=== PATIENT | male | born 1985 | race Caucasian/White ===

== ENCOUNTER 2018-07-15 14:10 | Emergency (ER) | payer BC, SELFPAY ==
[2018-07-15 14:11] VITALS: BP 121/83; PULSE 77; RESP 16; TEMP 36.4; O2SAT 100; BMI 24.6
--- NOTE | 2018-07-15 15:25 | RAD_ITS ---
STUDY: X-RAY - RIGHT HAND REASON FOR EXAM: Male, 32 years old. Erythema and swelling of the third digit. TECHNIQUE: 3 view(s) of the hand. COMPARISON: None. FINDINGS: Normal radiocarpal articulation. Normal distal radioulnar joint. Normal visualized carpal bones. Normal carpal articulations Normal carpometacarpal articulation of the thumb. Normal second through fifth carpometacarpal joints. Normal metacarpi. Normal metacarpophalangeal joint of the thumb. Normal interphalangeal joint of the thumb. Normal proximal and distal phalanges of the thumb. Normal metacarpophalangeal joints of the second through fifth fingers. Normal proximal and distal interphalangeal joints of the second through fifth fingers. Normal phalanges of the second through fifth fingers. Soft tissue swelling overlying the third digit. No radiopaque foreign body is seen. No bony abnormality is seen. RAD/Hand Min 3 Views IMPRESSION: Soft tissue swelling of the third digit. Electronically Signed: Senthil Yip MD at 15:34 EDT Tel [phone], Service support ,
--- NOTE | 2018-07-15 15:39 | ED.DCSUM_ITS ---
- ER Visit Summary Date of Service: 07/15/18 Chief Complaint: Right hand cellulitis History of Present Illness: The patient is a 32 M states that on Thursday he had a small blister on the dorsum of his right long finger PIP joint. He states he popped it but nothing came out. He states that within 30 minutes the dorsum of his hand was red and he had red streaks going up his arm. He states that the redness of the finger changed to bruising and then changed back to redness is now back to bruising. Denies any fevers. On Thursday evening he took some leftover amoxicillin and was taking that until last night when he ran out. He went to urgent care and was sent here. He is a type II diabetic. Physical Examination: Afebrile vital signs are stable Gen: Well-nourished well-developed Head: Normocephalic atraumatic Eyes: Perrl EOMI ENT: TMs clear no rhinorrhea moist mucous membranes Neck: Supple no lymphadenopathy no JVD nontender CVS: Regular rate rhythm no murmurs normal S1-S2 Respiratory: No distress clear to auscultation bilaterally chest nontender Abdomen: Soft nontender nondistended normal bowel sounds no masses Back: Nontender Extremity: The right hand demonstrates some mild erythema on the dorsum involving the index long and ring finger MCP joint's skin. The long finger is swollen and erythematous. There is no erythema over the volar aspect. He is able to fully extend and to flex. Her vascular intact distally. At the PIP joint is a crusted over wound. I am not appreciating any fluctuance or visualizing any drainage. There is no lymphangitis Skin: Normal color no rash Neuro: alert orientated ?3 CN II-XII intact normal strength sensation reflexes gait cerebellar Psych: Normal affect normal mood Test Results: White blood cell count 13. Elevated blood sugar noted. Blood cultures obtained. X-ray revealed some swelling but no obvious foreign body Emergency Department Course and Treatment: Patient received a dose of vancomycin while we waited on blood work. This is been going on for 4 days does not appear to involve the tendon and by the history the patient provides is improving on Amoxil. This would at least suggest this could be MSSA infection. He will be placed on Keflex and Bactrim. As today is evening and follow-up in 48 hours would be impossible on Thursday evening informed the patient he should return to the emergency room for repeat examination. I am working that evening and can see him. The erythema was outlined and blue pen. Patient understands this plan is comfortable with them. He was placed in a volar plaster splint I will take him off work. Impression: 1. Right long finger and hand cellulitis 2. Diabetes mellitus type 2 3. Splint by physician This note was generated with [employer] dictation software. It may contain incorrect words, spelling, and punctuation that were not noted in review of the chart prior to signing ED Disposition - Plan for ED Patient: Disposition: Home or Assisted Living Chief Complaint: Cellulitis Instructions: ED Infec Skin Cellulitis Prescriptions: Cephalexin [Keflex] 500 mg PO Q6 #40 cap Smz/Tmp Ds [Bactrim Ds] 1 tab PO BID #20 tab Additional Instructions: You will need repeat examination of 48 hours. You may return to the emergency department here at [facility] on Thursday evening to get this repeat exam. Elevate the hand Monitor for worsening infection and return immediately if concerns
[2018-07-15 15:46] LABS: Absolute Lymphocyte Count 2.81 X10^3/ul (0.83-4.51); Absolute Neutrophil Count 8.5 X10^3/uL (2.0-7.7); Basophil# 0.06 X10^3/uL; Basophil% 0.5 % (0-1); Eosinophil# 0.12 X10^3/uL; Eosinophils% 0.9 % (0-5); Hematocrit 44.3 % (40-54); Hemoglobin 15.8 g/dl (13.0-16.5); Lymphocyte # 2.81 X10^3/ul (4.0); Lymphocyte % 21.7 % (19-41); Mean Corp Hgb Conc 35.7 g/gl (32-36); Mean Corpuscular Hgb 29.3 pg (27.0-32.0); Mean Corpuscular Volume 82.2 fL (80-94); Mean Platelet Vol. 10.7 fl (6.2-12.0); Monocyte# 1.45 X10^3/uL; Monocyte% 11.2 % (0-10); Neutrophil # 8.49 X10^3/uL (2.7-7.7); Neutrophil % 65.5 % (47-70); POSITIVE COUNT NO; POSITIVE DIFFERENTIAL NO; POSITIVE MORPHOLOGY NO; Platelet Count 283 K/mm3 (150-450); RBC Distribution Width CV 12.6 % (11.6-14.6); RBC Distribution Width SD 37.3 fl (35.1-43.9); Red Blood Count 5.39 M/mm3 (4.6-6.2)
[2018-07-15 15:58] LABS: Anion Gap 8 (5-15); BUN 20 mg/dL (7-18); BUN/Creat Ratio 22.2 RATIO (10-20); Calcium,Total 9.5 mg/dL (8.5-10.1); Chloride 95 mmol/L (98-107); EST Glomerular Filtration Rate 104 mL/min (>60); Est Glom Filt Rate - Afr Amer 126 mL/min (>60); Glucose 306 mg/dL (74-106); Potassium 4.8 mmol/L (3.5-5.1); Sodium Level 128 mmol/L (136-145)
[2018-07-15 17:15] VITALS: BP 115/69; PULSE 82; RESP 16; O2SAT 98
== END 2018-07-15 17:16 | disposition home or self-care (01) ==
PROVIDERS: Emergency Provider Emergency Medicine; Family Provider Internal Medicine; PCP Internal Medicine
DX: L03.011 Cellulitis of right finger (principal); L03.113 Cellulitis of right upper limb; E11.65 Type 2 diabetes mellitus with hyperglycemia; Z79.84 Long term (current) use of oral hypoglycemic drugs
CPT/HCPCS: 29125; 36415; 73130; 80048; 85025; 87040; 96365; 99283; A4216

== ENCOUNTER 2018-07-17 17:09 | Emergency (ER) | payer BC, SELFPAY ==
[2018-07-17 17:10] VITALS: BP 119/87; PULSE 99; RESP 16; TEMP 36.8; O2SAT 100; BMI 24.6
--- NOTE | 2018-07-17 18:41 | ED.VISSUMM ---
- ER Visit Summary Date of Service: 07/17/18 Chief Complaint: Hand cellulitis History of Present Illness: The patient is a 32 M who has a history of diabetes and was seen by this physician on July 15. He was placed on Bactrim and Keflex as well as a volar splint. Because it was the weekend he was asked to come to the emergency department for repeat examination. Patient denies any fevers. He states he does not have any pain. Physical Examination: Afebrile vital signs stable Gen: Well-nourished well-developed Head: Normocephalic atraumatic Eyes: Perrl EOMI ENT: TMs clear no rhinorrhea moist mucous membranes Neck: Supple no lymphadenopathy no JVD nontender CVS: Regular rate rhythm no murmurs normal S1-S2 Respiratory: No distress clear to auscultation bilaterally chest nontender Abdomen: Soft nontender nondistended normal bowel sounds no masses Back: Nontender Extremity: Overall the infection is significantly improved. The redness that was on the hand has retreated to distal to the MCP joint. The erythema of the finger has decreased to only on the dorsum. There is some deflated bullae-like skin on the dorsum without expression of pus. Patient states that he did get pus out of it yesterday. He is neurovascularly intact distally. Skin: Normal color no rash Neuro: alert orientated ?3 CN II-XII intact normal strength sensation reflexes gait cerebellar Psych: Normal affect normal mood Test Results: Not indicated Emergency Department Course and Treatment: Overall in 48 hours the patient has dramatically improved. I have him follow-up with his primary care doctor and continue his antibiotics. Return if he cannot see them. He will be placed in AlumaFoam splint. Impression: 1. Right index finger cellulitis This note was generated with [employer] dictation software. It may contain incorrect words, spelling, and punctuation that were not noted in review of the chart prior to signing ED Disposition - Plan for ED Patient: Disposition: Home or Assisted Living Chief Complaint: Cellulitis Instructions: Discharge Instructions for Cellulitis Referrals: Leanne Antonio MD [Primary Care Provider] - (in 3 days for wound check) Additional Instructions: Continue taking your antibiotics Wear splint. Please have a repeat examination on Thursday or Thursday. If you cannot secure a follow-up appointment please return to this emergency room.
[2018-07-17 19:04] VITALS: BP 119/79; PULSE 83; RESP 16; O2SAT 98
== END 2018-07-17 19:23 | disposition home or self-care (01) ==
LOC: ED 18:47
PROVIDERS: Emergency Provider Emergency Medicine; Family Provider Internal Medicine; PCP Internal Medicine
DX: L03.011 Cellulitis of right finger (principal); E11.9 Type 2 diabetes mellitus without complications; Z79.84 Long term (current) use of oral hypoglycemic drugs; Z79.899 Other long term (current) drug therapy
CPT/HCPCS: 99283

== ENCOUNTER 2019-03-07 21:58 | Emergency (ER) | payer BC, SELFPAY ==
[2019-03-07 21:58] VITALS: BP 120/93; PULSE 123; RESP 14; TEMP 37.1; O2SAT 100; BMI 23.1
--- NOTE | 2019-03-07 22:56 | EKG12_ITS ---
Test Reason : ABSESS Blood Pressure : / mmHG Vent. Rate : 100 BPM Atrial Rate : 100 BPM P-R Int : 138 ms QRS Dur : 096 ms QT Int : 334 ms P-R-T Axes : 064 052 058 degrees QTc Int : 430 ms Normal sinus rhythm Normal ECG Confirmed by AIDA CHRISTINA, ZHENG ([id number]), technical editor HAYDEN SPEARS ([id number]) on 03/09/2019 1:34:06 PM Referred By: MAMIE Confirmed By:ZHENG PARRA MD
--- NOTE | 2019-03-07 22:57 | ED.VISSUMM ---
- ER Visit Summary Date of Service: 03/07/19 Chief Complaint: Ingrown hair History of Present Illness: The patient is a 33 M who presents for evaluation of a ingrown hair on his left forearm. Patient states it is been worsening for 3 days. It started as a small pimple and is gradually gotten larger and more red. He squeezed some white pus from it. He has associated symptoms of feeling sweaty and hot today. He denies measured fever, chest pain, shortness of breath, abdominal pain, nausea vomiting or other complaints. Patient denies any history of IV drug use. He states 1 year ago he had a similar ingrown hair on 1 of his right fingers and had a severe infection, almost requiring amputation of the finger. Physical Examination: Vital signs: Afebrile, tachycardic, normotensive, no hypoxia on room air General: well nourished, well developed, nontoxic appearing Skin: warm, diaphoretic, no pallor HEENT: normocephalic and atraumatic; PERRL, EOMI, moist mucous membranes Cardiovascular: Tachycardic rate and rhythm without murmurs, no peripheral edema, 2+ pulses all distal extremities Respiratory: No increased work of breathing, lungs are clear to auscultation bilaterally, no rales, rhonchi or wheezing Abdominal: Abdomen is soft, nontender with normoactive bowel sounds, no guarding or rebound, no masses MSK: Moves all extremities, no deformities, normal strength, proximal forearm just distal to the olecranon process shows an erythematous nodule that expresses purulent discharge with gentle pressure, indurated and fluctuant, large area of surrounding erythema Neuro: Awake and alert, oriented ?4. No facial droop, sensation and motor function intact and symmetric Test Results: Abnormal Lab Results 03/07/19 03/07/19 03/07/19 23:10 23:10 23:10 WBC 12.6 H RBC 5.65 Hgb 16.3 Hct 44.9 MCV 79.5 L MCH 28.8 MCHC 36.3 H RDW 12.4 RDW Differential 35.8 Plt Count 344 MPV 10.4 Immature Gran % (Auto) 0.200 Neut % (Auto) 61.8 Lymph % (Auto) 26.8 Snyder % (Auto) 9.5 Eos % (Auto) 1.1 Baso % (Auto) 0.6 Absolute Neuts (auto) 7.8 H Absolute Lymphs (auto) 3.37 Total Counted Not Reportable PT 11.8 INR 0.9 APTT 25.4 Sodium 132 L Potassium 3.4 L Chloride 94 L Carbon Dioxide 31.0 Anion Gap 7 BUN 11 Creatinine 0.86 Estim Creat Clear Calc 138.84 Est GFR (MDRD) Af Amer 132 Est GFR (MDRD) Non-Af 109 BUN/Creatinine Ratio 12.7 Glucose 352 H Lactic Acid Calcium 9.2 Total Bilirubin 0.40 AST 14 L ALT 30 Alkaline Phosphatase 129 H Total Protein 8.1 Albumin 3.7 Globulin 4.4 H Albumin/Globulin Ratio 0.8 L POC Glucose 03/07/19 03/07/19 23:10 23:35 WBC RBC Hgb Hct MCV MCH MCHC RDW RDW Differential Plt Count MPV Immature Gran % (Auto) Neut % (Auto) Lymph % (Auto) Snyder % (Auto) Eos % (Auto) Baso % (Auto) Absolute Neuts (auto) Absolute Lymphs (auto) Total Counted PT INR APTT Sodium Potassium Chloride Carbon Dioxide Anion Gap BUN Creatinine Estim Creat Clear Calc Est GFR (MDRD) Af Amer Est GFR (MDRD) Non-Af BUN/Creatinine Ratio Glucose Lactic Acid 1.6 Calcium Total Bilirubin AST ALT Alkaline Phosphatase Total Protein Albumin Globulin Albumin/Globulin Ratio POC Glucose 373 H Clinical Impression(s) from Imaging Studies Chest X-Ray 03/07/19 23:55 IMPRESSION: No acute cardiopulmonary disease. at 0028 Reported and signed by: Wenceslao Noland MD Electronically Signed: Wenceslao Noland, at 0:27 EDT Tel , Service support , Elbow X-Ray 03/07/19 23:55 IMPRESSION: 1. No osteomyelitis, radiopaque foreign body, or bony abnormality. 2. Localized soft tissue swelling of the proximal left forearm, posteriorly, and this correlates with the provided history of soft tissue infection. at 0026 Reported and signed by: Wenceslao Noland MD Electronically Signed: Wenceslao Noland, at 0:25 EDT Tel , Service support , Medications Given Sodium Chloride () 1,000 mls @ 999 mls/hr IV .Q1H1M [facility] Last Admin: 03/07/19 23:27 Dose: 999 mls/hr Emergency Department Course and Treatment: Patient presents for evaluation of a left proximal forearm cellulitis. He was noted to be diaphoretic and tachycardic on initial evaluation, concerning for possible sepsis or glycemic emergency. Patient denied any substance use or withdrawal that would explain his tachycardia and diaphoresis. He stated that that was normal for him to react like that. After being moved into a room and after a short period of time, the diaphoresis resolved and his heart rate decreased without any intervention. Patient had a leukocytosis of 12.6. Blood glucose was 373. Patient had no anion gap or low bicarb that would be concerning for DKA. Lactate was normal at 1.6. Culture was taken of a small amount of pus expressed from patient's wound. Chest x-ray showed no concerning findings. Left elbow x-ray showed soft tissue swelling and no signs of deep space gas or osteomyelitis. The area of fluctuance was cleansed and then a stab incision was made with a scalpel, with no expression of any further pus. Patient was started on Keflex and Bactrim for treatment of cellulitis. We discussed his poorly controlled blood sugar, and patient states that he knows his blood sugar is high and that he does not like needles so does not use insulin. Patient was strongly encouraged to follow-up with his doctor and get his blood sugar better managed since he is young and it is unhealthy for him to have a persistently high blood sugar. At this time there is no sign of a glycemic emergency that would require further treatment. Patient did receive IV fluids for hydration while in the emergency department. He is well-appearing and does wish to go home on oral antibiotics. He was prescribed Keflex and Bactrim and was given strict return precautions in case of failed outpatient treatment. Patient agreed and was discharged home. Treatment Plan: [] Disposition: [] Impression: Left forearm cellulitis, hyperglycemia This note was generated with [employer] software. It may contain incorrect words, spelling, and punctuation that were not noted in review of the chart prior to signing ED Disposition - Plan for ED Patient: Instructions: ED Infec Skin Cellulitis, ED Hyperglycemia Diabetic Prescriptions: Cephalexin [Keflex] 500 mg PO Q6 #40 cap Smz/Tmp Ds [Bactrim Ds] 1 tab PO BID #20 tab Referrals: Leanne Antonio MD [Primary Care Provider] - 1-2 Days if not improving Additional Instructions: Take both antibiotics as prescribed for the full 10 days, even if your skin infection is better before the 10 days is complete. Use [id number] pain medication as needed for pain. Please follow-up with your doctor as soon as possible for a discussion of better control of your blood sugar. If you are not noticing improvement of your skin infection after 2 days of antibiotics, or if at any time you have any worsening of your condition, return immediately to the emergency department for another evaluation.
[2019-03-07 23:24] VITALS: PULSE 97; RESP 12; TEMP 36.8; O2SAT 100
[2019-03-07 23:26] VITALS: TEMP 36.8
[2019-03-07 23:27] VITALS: BP 124/73; PULSE 99; RESP 19; TEMP 36.8; O2SAT 100
[2019-03-07] MEDS: 0.9% Normal Saline 1,000 ML 999 ML IV (23:27)
[2019-03-07 23:28] LABS: International Normalized Ratio 0.9; Prothrombin Time (Protime)PT. 11.8 SECONDS (11.7-14.9)
[2019-03-07 23:29] LABS: Partial Thromboplast Time 25.4 Seconds (24.1-36.2)
[2019-03-07 23:31] LABS: Absolute Lymphocyte Count 3.37 X10^3/ul (0.83-4.51); Absolute Neutrophil Count 7.8 X10^3/uL (2.0-7.7); Basophil# 0.07 X10^3/uL; Basophil% 0.6 % (0-1); Eosinophil# 0.14 X10^3/uL; Eosinophils% 1.1 % (0-5); Hematocrit 44.9 % (40-54); Hemoglobin 16.3 g/dl (13.0-16.5); Lymphocyte # 3.37 X10^3/ul (4.0); Lymphocyte % 26.8 % (19-41); Mean Corp Hgb Conc 36.3 g/gl (32-36); Mean Corpuscular Hgb 28.8 pg (27.0-32.0); Mean Corpuscular Volume 79.5 fL (80-94); Mean Platelet Vol. 10.4 fl (6.2-12.0); Monocyte% 9.5 % (0-10); Neutrophil # 7.77 X10^3/uL (2.7-7.7); Neutrophil % 61.8 % (47-70); POSITIVE COUNT NO; POSITIVE DIFFERENTIAL NO; POSITIVE MORPHOLOGY NO; Platelet Count 344 K/mm3 (150-450); RBC Distribution Width CV 12.4 % (11.6-14.6); RBC Distribution Width SD 35.8 fl (35.1-43.9); Red Blood Count 5.65 M/mm3 (4.6-6.2); White Blood Count 12.6 K/mm3 (4.4-11.0)
[2019-03-07 23:37] LABS: ALB/GLOB Ratio 0.8 RATIO (0.9-2.4); AST(SGOT) 14 U/L (15-37); Alanine Aminotransfer ALT/SGPT 30 U/L (16-61); Albumin, Serum 3.7 g/dL (3.2-5.0); Alkaline Phosphatase 129 U/L (45-117); Anion Gap 7 (5-15); BUN 11 mg/dL (7-18); BUN/Creat Ratio 12.7 RATIO (10-20); Calcium,Total 9.2 mg/dL (8.5-10.1); Chloride 94 mmol/L (98-107); Creatinine, Serum 0.86 mg/dL (0.70-1.30); EST Glomerular Filtration Rate 109 mL/min (>60); Est Glom Filt Rate - Afr Amer 132 mL/min (>60); Estimated Creatinine Clearance 138.84 ml/min; Globulin 4.4 g/dL (2.2-4.2); Glucose 352 mg/dL (74-106); Potassium 3.4 mmol/L (3.5-5.1); Protein, Total 8.1 g/dL (6.4-8.2); Sodium Level 132 mmol/L (136-145)
[2019-03-07 23:45] LABS: Bedside Glucose 373 mg/dL (70-110)
[2019-03-07 23:45] LABS: Lactic Acid 1.6 mmol/L (0.4-2.0)
--- NOTE | 2019-03-07 23:55 | RAD_ITS ---
HISTORY: abscess on posterior left elbow x 4 days COMPARISON: None FINDINGS: XR left elbow 3 views No fracture, dislocation, or bony abnormality. Joint spaces are preserved. No osteomyelitis. The distal humeral fat pads are not displaced. As seen on the lateral view, localized mild soft tissue swelling of the proximal forearm, posteriorly. No radiopaque foreign body. No typical findings of olecranon bursitis. RAD/Elbow min 3 Views IMPRESSION: 1. No osteomyelitis, radiopaque foreign body, or bony abnormality. 2. Localized soft tissue swelling of the proximal left forearm, posteriorly, and this correlates with the provided history of soft tissue infection. at 0026 Reported and signed by: Wenceslao Noland MD Electronically Signed: Wenceslao Noland, at 0:25 EDT Tel , Service support ,
--- NOTE | 2019-03-07 23:55 | RAD_ITS ---
HISTORY: abscess on left elbow, fever EXAM:XR Chest 2 Views COMPARISON: None FINDINGS: EKG leads in place. Normal heart and mediastinum. Prominent lung volumes. No vascular congestion, pleural effusion, or acute pulmonary infiltration. No pneumothorax. The bony thorax appears intact. RAD/Chest PA and Lateral IMPRESSION: No acute cardiopulmonary disease. at 0028 Reported and signed by: Wenceslao Noland MD Electronically Signed: Wenceslao Noland, at 0:27 EDT Tel , Service support ,
[2019-03-08 00:13] VITALS: BP 126/99; PULSE 100; PULSE 89; RESP 20; TEMP 36.4; O2SAT 100
[2019-03-08] MEDS: Smz/Tmp Ds Tablet 1 TABLET PO (01:07)
[2019-03-08] MEDS: Cephalexin 250 MG Capsule 500 MG PO (01:08)
[2019-03-08 01:09] VITALS: BP 123/97; PULSE 95; RESP 18; O2SAT 100
== END 2019-03-08 01:11 | disposition home or self-care (01) ==
LOC: ED 23:00
PROVIDERS: Emergency Provider Emergency Medicine; Family Provider Internal Medicine; PCP Internal Medicine
DX: L03.114 Cellulitis of left upper limb (principal); R73.9 Hyperglycemia, unspecified; Z79.84 Long term (current) use of oral hypoglycemic drugs; Z79.899 Other long term (current) drug therapy
CPT/HCPCS: 71046; 73080; 80053; 82962; 83605; 85025; 85610; 85730; 87040; 87070; 87077; 87186; 87205; 93005; 96360; 96361; 99285; J7030

== ENCOUNTER 2019-05-24 00:04 | Observation (INO) | payer BC, SELFPAY ==
[2019-05-24] VITALS (8 sets, daily range): BP systolic 98–135; BP diastolic 54–89; PULSE 86–106; RESP 12–18; TEMP 36.6–37.2; O2SAT 96–100; BMI 24.4; BMI 24.5; BMI 24.6
[2019-05-24 01:12] LABS: Absolute Neutrophil Count 5.7 X10^3/uL (2.0-7.7); Basophil% 0.9 % (0-1); Eosinophil# 0.18 X10^3/uL; Eosinophils% 1.7 % (0-5); Hematocrit 37.1 % (40-54); Hemoglobin 13.3 g/dL (13.0-16.5); Lymphocyte % 35.5 % (19-41); Mean Corp Hgb Conc 35.8 g/dL (32-36); Mean Corpuscular Hgb 29.1 pg (27.0-32.0); Mean Corpuscular Volume 81.2 fL (80-94); Mean Platelet Vol. 10.6 fl (6.2-12.0); Monocyte# 0.89 X10^3/uL; Monocyte% 8.3 % (0-10); NRBC Flagged by Analyzer 0 % (0-5); Neutrophil # 5.65 X10^3/uL (2.7-7.7); Neutrophil % 52.9 % (47-70); Platelet Count 351 K/mm3 (150-450); RBC Distribution Width SD 34.7 fl (35.1-43.9); Red Blood Count 4.57 M/mm3 (4.6-6.2); White Blood Count 10.7 K/mm3 (4.4-11.0)
[2019-05-24 01:37] LABS: Anion Gap 10 (5-15); BUN 9 mg/dL (7-18); BUN/Creat Ratio 8.6 RATIO (10-20); Calcium,Total 8.7 mg/dL (8.5-10.1); Chloride 96 mmol/L (98-107); Creatinine, Serum 1.05 mg/dL (0.70-1.30); EST Glomerular Filtration Rate 87 mL/min (>60); Est Glom Filt Rate - Afr Amer 105 mL/min (>60); Estimated Creatinine Clearance 114.14 ml/min; Glucose 486 mg/dL (74-106); Sodium Level 133 mmol/L (136-145)
--- NOTE | 2019-05-24 01:37 | ED.RN ---
DR. SHARP INFORMED OF GLUCOSE 486. WILL CONTINUE TO MONITOR NO FURTHER ORDERS AT THIS TIME.
--- NOTE | 2019-05-24 01:55 | ED.VISSUMM ---
- ER Visit Summary Date of Service: 05/24/19 Chief Complaint: Abscess History of Present Illness: The patient is a 33 M who presents with abscess and cellulitis of his right forearm. This has been present for 4 days. He does have a history of recurrent abscesses and cellulitis. He denies IV drug use. No fevers. No nausea or vomiting. Physical Examination: Afebrile heart rate 104 vitals otherwise normal Heart regular rate and rhythm Lungs clear Abdomen soft Patient has erythema and induration of the anterior right forearm with lymphangitic streaking to the axilla Test Results: [id number] ultrasound does not show focal fluid collection amenable to incision and drainage. CBC BMP unremarkable. Emergency Department Course and Treatment: Patient was treated with IV clindamycin. He reports that he is responded well to IV clindamycin on his previous hospitalization. He was discussed with the hospitalist and admitted. Treatment Plan: [] Disposition: Admit Impression: Cellulitis right arm This note was generated with [employer] dictation software. It may contain incorrect words, spelling, and punctuation that were not noted in review of the chart prior to signing ED Disposition - Plan for ED Patient: Referrals: Leanne Antonio MD [Primary Care Provider] -
[2019-05-24] MEDS: 0.9% Normal Saline 1,000 ML 999 ML IV (01:56)
--- NOTE | 2019-05-24 02:05 | HP.PCM_ITS ---
Problem List (1) Cellulitis Status: Acute Qualifiers: Site of cellulitis of extremity: upper extremity Laterality: right History of Present Illness Date of Admission: 05/24/19 Chief Complaint: skin infection right arm The patient is a 33 year old M [male with no significant past medical history presents the emergency room with skin infection in the right arm. States he is exposed at work to metal shards constantly which break his skin in the arms. He has multiple areas involved the largest being on the right proximal humerus maximally 8 x 6 cm warm to touch with lymphangitic streaking to the axilla. Patient denies fevers or chills no chest pain shortness of breath onset of the symptoms began 4 days ago. Patient denies IV drug use. He has had previous skin infections that responded to clindamycin. He will be admitted for IV antibiotic therapy.] Past Medical History Allergies No Known Allergies Allergy (Verified 05/24/19 00:04) Home Medications: Ambulatory Orders Medication Instructions Recorded Glimepiride [Amaryl] 2 mg PO DAILY 07/15/18 Metformin HCl 1,000 mg PO BID 07/15/18 Surgical History: no surgical history Smoking Status: Never smoker - *Family History Maternal History Items: No pertinent history Review of Systems Constitutional: Denies: Chills, Fever, Weight Change HEENT: Denies: Head Aches, Sinus Congestion, Sinus Drainage Cardiovascular: Denies: Chest Pain, Palpitations Respiratory: Denies: Cough, Shortness of breath at rest, Sputum production Gastrointestinal: Denies: Abdominal Pain, Nausea, Vomiting Genitourinary: Denies: Dysuria Musculoskeletal: Denies: Joint Pain, Joint Tenderness Skin: Reports: Lesions, Wounds. Denies: Rash Neurological: Denies: Numbness, Tingling, Focal weakness Psychiatric: Denies: Anxiety, Depression, Homicidal Ideations, Suicidal Ideations Hematologic/ Lymphatic: Denies: Easy Bruising, Easy Bleeding VTE Information - Inpt Only VTE Present on Admission: No VTE Mechan Device Prophylaxis: None VTE Pharm Prophylaxis ordered?: Yes Patient Problems: Active and Suspected Problems Cellulitis (Acute) - Physical Exam General: Alert, Oriented x3, Cooperative HEENT: Atraumatic, Normocephalic Neck: Supple Lungs: Normal air movement Cardiovascular: Regular rate Abdomen: Soft, Non Tender Extremities: No edema Skin: Ulcer/ Wound - 6x8cm erythema right upper arm with lymphangitic streakin to axilla, multiple papule lesions on both extremities with surrounding erythema on both arms Musculoskeletal: No Tenderness to Palpation of Joints or Extremities Neurological: Neuro grossly intact Psych/Mental Status: Normal Affect, Appropriate Vital Signs Temp Pulse Resp BP Pulse Ox 98.9 F 100 14 128/81 H 100 05/24/19 02:01 05/24/19 02:01 05/24/19 02:01 05/24/19 02:01 05/24/19 02:01 Oxygen Delivery Method Room Air Weight: 185 lb 6.54 oz Body Mass Index (BMI) 24.4 Finger Stick Blood Glucose 373 Laboratory Tests Past 24 Hrs 05/24/19 05/24/19 01:03 01:03 WBC 10.7 RBC 4.57 L Hgb 13.3 Hct 37.1 L MCV 81.2 MCH 29.1 MCHC 35.8 RDW Std Deviation 34.7 L RDW Coeff of James 12.0 Plt Count 351 MPV 10.6 Immature Gran % (Auto) 0.700 Neut % (Auto) 52.9 Lymph % (Auto) 35.5 Shelby % (Auto) 8.3 Eos % (Auto) 1.7 Baso % (Auto) 0.9 Absolute Neuts (auto) 5.7 Absolute Lymphs (auto) 3.80 Nucleated RBC % 0 Sodium 133 L Potassium 4.0 Chloride 96 L Carbon Dioxide 27.0 Anion Gap 10 BUN 9 Creatinine 1.05 Estim Creat Clear Calc 114.14 Est GFR (MDRD) Af Amer 105 Est GFR (MDRD) Non-Af 87 BUN/Creatinine Ratio 8.6 L Glucose 486 H* Calcium 8.7 Assessment/Plan All Active Problems Cellulitis (Acute) Plan 1. Cellulitis right upper arm?tinea clindamycin initiated in the emergency room. CBC BMP in the morning 2. DVT prophylaxis?low molecular weight heparin Code Visit OBSV E&M: 20092 Initial observation care L2
[2019-05-24] MEDS: Insulin Lispro 100 UNIT/ML INSULN.PEN 12 UNIT SC (02:07)
[2019-05-24] MEDS: 0.9% NaCl Peripheral Flush Adult/Peds IV ×4 (05:20→23:53)
[2019-05-24 06:51] LABS: Bedside Glucose 297 mg/dL (70-110)
[2019-05-24 07:53] LABS: Absolute Lymphocyte Count 4.29 X10^3/uL (0.83-4.51); Absolute Neutrophil Count 4.2 X10^3/uL (2.0-7.7); Eosinophil# 0.24 X10^3/uL; Eosinophils% 2.5 % (0-5); Hematocrit 36.2 % (40-54); Hemoglobin 12.9 g/dL (13.0-16.5); Lymphocyte # 4.29 X10^3/ul (4.0); Mean Corp Hgb Conc 35.6 g/dL (32-36); Mean Corpuscular Volume 81.3 fL (80-94); Mean Platelet Vol. 10.5 fl (6.2-12.0); Monocyte# 0.83 X10^3/uL; Monocyte% 8.5 % (0-10); NRBC Flagged by Analyzer 0 % (0-5); Neutrophil % 43.2 % (47-70); Platelet Count 336 K/mm3 (150-450); RBC Distribution Width CV 11.9 % (11.6-14.6); Red Blood Count 4.45 M/mm3 (4.6-6.2); White Blood Count 9.7 K/mm3 (4.4-11.0)
[2019-05-24 08:10] LABS: Anion Gap 8 (5-15); BUN 10 mg/dL (7-18); BUN/Creat Ratio 13.8 RATIO (10-20); Calcium,Total 8.4 mg/dL (8.5-10.1); Chloride 103 mmol/L (98-107); Creatinine, Serum 0.72 mg/dL (0.70-1.30); EST Glomerular Filtration Rate 133 mL/min (>60); Est Glom Filt Rate - Afr Amer 161 mL/min (>60); Estimated Creatinine Clearance 166.46 ml/min; Glucose 271 mg/dL (74-106); Potassium 3.5 mmol/L (3.5-5.1); Sodium Level 139 mmol/L (136-145)
[2019-05-24] MEDS: Glimepiride 2 MG Tablet PO (08:56)
[2019-05-24] MEDS: metFORMIN HCl 1,000 MG Tablet 1000 MG PO ×2 (08:56→16:49)
[2019-05-24] MEDS: Insulin Lispro 100 UNIT/ML INSULN.PEN SC ×3 (11:10→22:13)
--- NOTE | 2019-05-24 11:16 | PCM.PN.BLA ---
Progress Note This is a 34 years old male patient presented to the emergency room because of localized swelling and erythema on the right forearm that has been there for 4 days. He is diabetic patient and have a history of recurrent abscesses and cellulitis of the upper extremities. He was found to have acute right forearm localized cellulitis. Bedside ultrasound done by the ER physician upon admission and revealed no focal fluid collection amenable to incision and drainage. Patient was started on IV clindamycin. He is diabetic patient, sugar was elevated upon admission. He has been afebrile, vital signs are stable, no leukocytosis. Physical examination essentially unremarkable except for the findings on the right forearm. Plan to continue same treatment, start topical bacitracin twice daily, possible DC home tomorrow.
[2019-05-24 11:20] LABS: Bedside Glucose 388 mg/dL (70-110)
[2019-05-24] MEDS: BACITRACIN 15 GM Tube 1 APPLIC TOPICAL ×2 (12:18→22:14)
[2019-05-24 16:56] LABS: Bedside Glucose 260 mg/dL (70-110)
[2019-05-24 22:20] LABS: Bedside Glucose 244 mg/dL (70-110)
[2019-05-25] MEDS: BACITRACIN 15 GM Tube 1 APPLIC TOPICAL ×2 (05:42→09:10)
[2019-05-25 05:43] VITALS: BP 113/67; PULSE 78; RESP 14; TEMP 36.8; O2SAT 100
[2019-05-25] MEDS: Insulin Lispro 100 UNIT/ML INSULN.PEN SC (06:56)
[2019-05-25 07:05] LABS: Bedside Glucose 260 mg/dL (70-110)
[2019-05-25] MEDS: Glimepiride 2 MG Tablet PO (09:00)
[2019-05-25] MEDS: metFORMIN HCl 1,000 MG Tablet 1000 MG PO (09:00)
[2019-05-25 09:03] VITALS: BP 134/80; PULSE 87; RESP 16; TEMP 36.6; O2SAT 100
--- NOTE | 2019-05-25 09:03 | DCINST_ITS ---
- Discharge Diagnoses Current Active Problems: Current Active and Chronic Problems Cellulitis (Acute) You will use the following diet at home:: Calorie/Carbohydrate Controlled (specify 1200, 1400, etc) - 1800 alicia Your food should be the consistency of: Regular Discharge Activity: Return to Normal Activity Weight Bearing Status: Full weight bearing Call your doctor if you observe: Fever of 101 or Higher, Shortness of breath, Dizziness, Fainting spells, Chest pain, Increased palpitations (irregular heartbeat), Uncontrolled pain Allergies/Adverse Reactions: Allergies No Known Allergies Allergy (Verified 05/24/19 03:02) Medications to take at Discharge Glimepiride [Amaryl] 2 mg PO DAILY 07/15/18 Metformin HCl 1,000 mg PO BID 07/15/18 Bacitracin Ointment 1 applic TOPICAL BID 7 Days #1 tube 05/25/19 Clindamycin [Cleocin] 300 mg PO TID #30 cap 05/25/19 The following prescriptions were given: Bacitracin Ointment 1 applic TOPICAL BID 7 Days #1 tube Prescription Printed Clindamycin [Cleocin] 300 mg PO TID #30 cap Prescription Printed Primary Care Physician: Leanne Antonio MD [Primary Care Provider] - Please follow up with your Primary Care Physician in: 1 week. Test Results: Test results from this visit will be discussed in further detail at your follow- up appointment, if applicable.
--- NOTE | 2019-05-25 12:20 | DS.PCM_ITS ---
Discharge Date and Diagnosis Date of Admission: 05/24/19 Date of Discharge: 05/25/19 - Primary Discharge Diagnosis Acute localized cellulitis of the right forearm. Hospital Course and Treatment Operations: None Procedures: None Summary of Care Provided: Patient seen and examined on the day of discharge and appeared to be stable to be discharged home. Swelling and erythema on the middle of the right forearm is getting better, less swollen and less red. No drainage. Vital signs are stable, afebrile. The patient is a 33 year old M presented to the emergency room because of right forearm swelling and erythema that has been going on for 4 days. He was found to have acute localized cellulitis in the middle of the right forearm. Patient mentioned that he has recurrent skin abscesses and cellulitis of both hands. 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 He is diabetic patient. Patient was treated with IV clindamycin as well as topical bacitracin. There was no evidence of sepsis or severe sepsis on admission. [id number] ultrasound done by the ED physician at the bedside and showed no focal fluid collection or abscess that need to be drained. His routine blood work was unremarkable. With IV clindamycin and topical bacitracin, erythema and swelling of the right forearm improved. Patient remained afebrile throughout admission. No culture was done because there was no open wound or drainage. Patient discharged home in a stable medical condition, discharged on clindamycin and topical bacitracin, recommended follow-up with PCP in 1 week. - Physical Exam General: Alert, Oriented x3, Cooperative, No apparent distress HEENT: Atraumatic, PERRLA, EOMI, Normocephalic Oral: Moist Mucosa, No Gingival or Mucosal Lesions/ Ulcerations Neck: Supple, No JVD, Negative Carotid Bruits, Trachea Midline, Thyroid Normal Size and Texture Lungs: Clear to auscultation, Normal air movement, No rhonchi, No wheeze, No rales Cardiovascular: Regular rate, Regular Rhythm, Normal S1, Normal S2, No murmurs Abdomen: Bowel Sounds Present, Soft, Non Tender, Non-Distended, No Hepato- splenomegaly Extremities: No clubbing, No cyanosis, No edema Skin: - - Right forearm: Localized area of erythema and swelling in the middle of the posterior aspect of the right forearm, improved compared to yesterday. Lymphatic: No Cervical, Supraclavicular, or Inguinal Adenopathy Neurological: Cranial nerves II-XII grossly intact, Neuro grossly intact Psych/Mental Status: Normal Affect, Appropriate Vital Signs Temp Pulse Resp BP Pulse Ox 97.9 F 87 16 134/80 H 100 05/25/19 09:03 05/25/19 09:03 05/25/19 09:03 05/25/19 09:03 05/25/19 09:03 Oxygen Delivery Method Room Air Weight: 186 lb 11.704 oz Body Mass Index (BMI) 24.6 Finger Stick Blood Glucose 373 Intake and Output for Last 24 Hours 05/23/19 05/24/19 05/25/19 23:59 23:59 23:59 Intake Total 889.9 / 1189.9 639 / 639 Balance 889.9 / 1189.9 639 / 639 POC Glucose 05/25/19 05/24/19 05/24/19 06:54 22:12 16:49 POC Glucose 260 H 244 H 260 H Discharge Activity: Return to Normal Activity Weight Bearing Status: Full weight bearing Call your doctor if you observe: Fever of 101 or Higher, Shortness of breath, Dizziness, Fainting spells, Chest pain, Increased palpitations (irregular heartbeat), Uncontrolled pain Home Medications: Medications to take at Discharge Glimepiride [Amaryl] 2 mg PO DAILY 07/15/18 Metformin HCl 1,000 mg PO BID 07/15/18 Bacitracin Ointment 1 applic TOPICAL BID 7 Days #1 tube 05/25/19 Clindamycin [Cleocin] 300 mg PO TID #30 cap 05/25/19 Following Prescrptions Were Given to Patient: Bacitracin Ointment 1 applic TOPICAL BID 7 Days #1 tube Prescription Printed Clindamycin [Cleocin] 300 mg PO TID #30 cap Prescription Printed Primary Care Physician: Leanne Antonio MD [Primary Care Provider] - Please follow up with your Primary Care Physician in: 1 week. Disposition: Home Minutes spent on discharge:: 25 Patient Condition:: Stable Medical Necessity - Tobacco Use Smoking Status: Never smoker Meaningful Use Info Meaningful Use Diagnoses (Choose all that apply): None applicable Code Visit OBSV E&M: 69211 Observation care discharge
== END 2019-05-25 09:04 | disposition home or self-care (01) ==
LOC: ED 00:52 → PCU 02:28
PROVIDERS: Admitting Provider Family Medicine; Emergency Provider Emergency Medicine; Family Provider Internal Medicine; PCP Internal Medicine; Visit Provider Hospitalist
DX: L03.113 Cellulitis of right upper limb (principal); L02.818 Cutaneous abscess of other sites; E11.9 Type 2 diabetes mellitus without complications; Z79.84 Long term (current) use of oral hypoglycemic drugs
CPT/HCPCS: 36415; 80048; 82962; 85025; 96365; 96366; 96376; 97802; 99218; 99284; J7030; A4216; G0378

== ENCOUNTER 2020-05-02 14:29 | Emergency (ER) | payer BC, SELFPAY ==
[2019-05-24 02:56] VITALS: BMI 24.6
[2020-05-02 14:30] VITALS: BP 129/71; PULSE 89; RESP 15; TEMP 36.4; O2SAT 99; BMI 22.4
--- NOTE | 2020-05-02 14:59 | ED.VIS.LOWEX ---
History of Present Illness Chief Complaint: Cellulitis Informant: Patient Onset: Days - 1-2 Context: Gradual Onset Timing: Continuous Quality of Pain: - - sore Location: left knee Current Severity: Moderate Maximum Severity: Moderate Worsened by: walking, palpation Relieved by: leaving alone/rest Associated Symptoms: Negative for: Parasthesia, Weakness, Loss of Funtion Narrative: Patient states he had an ingrown hair on his left knee, it became a small pustule. He popped it, a drop of purulent material came out, and he removed a hair that was in the center of it that appeared to be ingrown. This was around midnight 2 nights ago, he then woke up at 4 in the morning and saw it appeared to be red around the area like it is now, around 5 or 6 cm in radius from the ingrown hair. It has been painful. He is diabetic and is always poorly controlled to 300s, which is what it was today, high 300s. He denies any systemic symptoms or fevers. He denies any trouble moving his knee but it hurts to walk and touch the affected area. Past Medical History - Allergies and Home Meds Allergies/Adverse Reactions: Allergies No Known Allergies Allergy (Verified 05/24/19 03:02) Primary Care Physician: Leanne Antonio MD [Primary Care Provider] - 5-7 Days Surgical History: no surgical history Smoking Status: Never smoker - Family History Maternal Family History: Reports: No pertinent history Review of Systems General: Denies: Chills, Fever, Malaise, Sweats Eyes: Denies: Visual changes - bilaterally, Diplopia ENT: Denies: Rhinorrhea, Sore throat Cardiovascular: Denies: Chest pain, Palpitations Respiratory: Denies: Dyspnea, Cough, Dyspnea on exertion Gastrointestinal: Denies: Abdominal pain, Nausea, Vomiting, Diarrhea, Melena, Hematochezia Genitourinary: Denies: Dysuria, Hematuria, Frequency Musculoskeletal: Reports: Extremity Pain. Denies: Back pain Skin: Reports: Rash. Denies: Abscess, Wounds Neurological: Denies: Headache, Weakness, Numbness Physical Exam Vital Signs/Narrative: Vital Signs Temp Pulse Resp BP Pulse Ox 05/02/20 14:30 97.6 F L 89 15 129/71 H 99 Inital Vital Signs reviewed: Yes - Extremity Exam Left Knee: - - Appears to be a small ingrown hair in the center of cellulitic area anterior knee. No abscess, no purulent discharge expressible or other discharge. No inguinal lymphadenopathy left groin.. Negative for: Limited ROM - Range of motion without any difficulty or limitation. General: Well nourished, Well developed, - - well-appearing, nad Head: Normocephalic, Atraumatic ENT: No Trauma, Moist Mucous Membranes Respiratory: No distress Skin: Normal color, No Trauma, Rash - tender cellulitis without abscess left anterior knee; no induration or SQ emphysema. No lymphangitis. Neurological: Alert, Oriented x3, Cranial nerves II-XII grossly intact, Normal Strength, Normal Sensation, Normal Gait Psychological: Normal affect, Normal Mood Diagnostic/Tx/Re-eval - Medical Decision Making Blood sugar here is 470. He was treated with a dose of insulin. He is comfortable rechecking his sugar later. He was given an injection of Ancef, a line was drawn around the red area for him to help monitor it, and we discussed reasons to return. Prescribed Keflex, this appears to be consistent with strep infection and not MRSA as there is a good amount of cellulitis and no abscess or early abscess. ED Disposition - Plan for ED Patient: Disposition: Home or Assisted Living Diagnosis: Cellulitis of left knee, Uncontrolled diabetes mellitus Instructions: ED Cellulitis Prescriptions: Cephalexin [Keflex] 500 mg PO 4X/DAY #40 cap Prescription Printed Referrals: Leanne Antonio MD [Primary Care Provider] - 5-7 Days
[2020-05-02 15:46] LABS: Bedside Glucose 477 mg/dL (70-110)
[2020-05-02] MEDS: Cefazolin 1 GM/5 ML Vial IM (15:54)
[2020-05-02] MEDS: Insulin Lispro 100 UNIT/ML INSULN.PEN 10 UNIT SC (15:54)
== END 2020-05-02 16:20 | disposition home or self-care (01) ==
LOC: ED 15:29
PROVIDERS: Emergency Provider Emergency Medicine; PCP Internal Medicine
DX: L03.116 Cellulitis of left lower limb (principal); E11.65 Type 2 diabetes mellitus with hyperglycemia; Z79.84 Long term (current) use of oral hypoglycemic drugs
CPT/HCPCS: 82962; 96372; 99282

== ENCOUNTER 2021-07-26 13:36 | Inpatient (IN) | payer BC, SELFPAY ==
[2021-07-26 13:37] VITALS: BP 147/94; PULSE 107; RESP 16; TEMP 37.3; O2SAT 97; BMI 25.0
--- NOTE | 2021-07-26 15:03 | RAD_ITS ---
STUDY: X-RAY - LEFT FOOT CLINICAL: Male, 35 years old. diabtic foot infection TECHNIQUE: 3 view(s) of the foot. COMPARISON: None. FINDINGS: Normal talus, calcaneus, and tarsal bones. Normal visualized subtalar, talonavicular, calcaneocuboid, tarsal and tarsometatarsal articulations. Normal metatarsi. Normal metatarsophalangeal joint of the great toe. Normal tibial and fibular sesamoid bones. Normal interphalangeal joint of the great toe. Normal phalanges of the great toe. Normal second through fifth metatarsophalangeal joints. Normal interphalangeal joints and phalanges of the lesser toes. Suspected 1.5 cm ulcer of the lateral plantar aspect of the foot with an adjacent 5 mm linear radiopaque foreign body. No radiographic evidence of osteomyelitis. RAD/Foot min 3 Views IMPRESSION: Suspected ulcer of the lateral plantar foot with an adjacent foreign body but no osteomyelitis. Electronically Signed: Bright Moran MD at 16:30 EDT Tel , Service support ,
--- NOTE | 2021-07-26 15:12 | EDS_ITS ---
HPI History of Present Illness HPI Narrative: 35-year-old diabetic male said he has not seen his doctor for quite some time and he is out and has not been taking his diabetic medications. Said he had something in his work boot that was rubbing on his left foot which she noticed on Thursday and now the foot is red and swollen and tender. He has had diabetic foot infections before. Never this severe. Chief Complaint: Lower Extremity Injury Detail of Chief Complaint: Left diabetic foot infection. Informant: patient Occured/Mechanism Mechanism/Context: Yes puncture wound Onset/Context/Timing Onset: Days Context: Gradual Onset Timing: Continuous Quality of Pain: Sharp Current Severity: Mild Maximum Severity: Mild Narrative Narrative: 32-year-old male with a left diabetic foot irritation. Plan currently not taking his medications. Laceration this is been ongoing the last 4 to 5 days. Prior similar symptoms: Yes Recent Illness/Hospitalization: No PFSH PFSH Medical History Diabetes Home Medications NK 07/26/21 [History Last Taken Unknown] Allergy/AdvReac Type Severity Reaction Status Date / Time No Known Allergies Allergy Verified 05/24/19 03:02 Social History Smoking Status: Never smoker ROS ROS ED ROS Narrative Lightheadedness. Review of Systems ROS Unobtainable: Denies due to encephalopathy Constitutional Constitutional ED: Denies chills or fever(s) Eyes Eyes: Denies change in vision ENT ENT ED: Denies ear pain or sore throat Cardiovascular Cardiovascular: Denies chest pain Respiratory/Chest Respiratory/Chest: Denies cough or dyspnea Gastrointestinal Gastrointestinal: Denies abdominal pain, diarrhea, nausea or vomiting Genitourinary Genitourinary ED: Denies dysuria Musculoskeletal Musculoskeletal: Denies myalgias Integumentary Reports rash Neurologic Neurologic: Denies headache(s) Psychiatric Psychiatric: Denies depression Endocrine Endocrinology: Denies polyuria Hematologic/Lymphatic Hematologic/Lymphatic: Denies easy bruising Allergic/Immunologic Allergic/Immunologic ED: Denies urticaria EXAM Physical Exam Narrative Exam Narrative: 35-year-old male vital signs stable afebrile. Home care. HEENT exam unremarkable. Neck nontender no lymphadenopathy. Lungs clear to auscultation. Heart regular rhythm rate about 105 no murmur. Abdomen soft nontender normal bowel sounds no peritoneal signs. Moving all 4 extremities. The bottom midsection of his left foot is obviously infected with cellulitis and pus underneath the skin. There is swelling of the foot and the distal lower leg. There is no lymphangitic streaking. There is no inguinal lymphadenopathy. Neurologically is awake alert moving all 4 extremities. Const Vital Signs: 07/26/21 13:37 07/26/21 15:39 Temperature 99.2 F H 99.2 F H Temperature Source Temporal Oral Pulse Rate 107 H 95 Respiratory Rate 16 18 Blood Pressure 147/94 H 125/90 H Blood Pressure Mean 111 101 Pulse Ox 97 96 Oxygen Delivery Method Room Air Room Air Positive well nourished and well developed; Negative for obese, cachectic, contractures or unkempt General Appearance ED: well developed and NAD; Negative for unkempt, cachectic or contractures Nutritional Appearance: Negative for cachectic or obese HEENT Reports moist mucous membranes normocephalic and atraumatic; Negative for trauma or tenderness Eyes PERRL Neck full ROM and supple Thyroid: Negative for tender Chest Wall inspection of chest normal and palpation of chest normal Resp normal respiratory effort, no retractions and clear to auscultation bilaterally Auscultation: Negative for rales, rhonchi or wheezes Cardio regular rate, regular rhythm, S1 normal heart sound, S2 normal heart sound and no murmurs GI non-tender, non-distended and no masses Inspection: Negative for abdominal distention Auscultation: normoactive bowel sounds Palpation: soft; Negative for tender or guarding Back/Spine no CVA tenderness General Back: Negative for CVA tenderness Cervical Spine: Negative for cervical spine tenderness Extremity Negative for normal to inspection Extremity Narrative: Left foot cellulitis, tender and pus consistent with an abscess in the midfoot. Minimal swelling of the ankle and distal lower leg. No lymphangitic streaking. No inguinal lymphadenopathy. Neuro oriented x3 and moves all extremities Sensorium / Orientation: alert, oriented to person, oriented to place and oriented to time; Negative for orientation impaired, confused, lethargic or stuporous Motor Exam: strength 5/5 throughout Psych mental status grossly normal Appearance: Negative for unkempt Mood & Affect: Negative for anxious Skin Skin Narrative: Left foot diabetic foot infection. Rashes: No no rashes MDM MDM MDM Narrative Medical decision making narrative: 35-year-old diabetic male noncompliant with a significant left midfoot diabetic foot infection with abscess. He will be started on IV Zosyn and Vanco labs and x-rays are being obtained. He will be admitted with consult to podiatry and admission by the hospitalist. Also treated with IV fluids and IV morphine and Zofran. Repeat exam patient is doing well at 5:15 PM. I spoken to the hospitalist and also the plant operator control room operator quality control clerk. Patient will be admitted and the plant operator control room operator will determine when she will do surgery on this diabetic foot infection. Lab Data Attestation: I reviewed the patient's lab results. Lab results narrative: CBC shows a elevated white count of 14.2. Hemoglobin 13.5. Chemistries show a sodium 128 potassium 3.4. Gap of 8 BUN and creatinine 9 and 1. Glucose 583. Lactic acid 1.4 CRP 325 Labs: Laboratory Results - last 24 hr 07/26/21 07/26/21 07/26/21 15:30 15:30 15:30 WBC 14.2 H RBC 4.76 Hgb 13.5 Hct 39.0 L MCV 81.9 MCH 28.4 MCHC 34.6 RDW Std Deviation 34.9 L RDW Coeff of James 11.8 Plt Count 308 MPV 11.1 Immature Gran % (Auto) 0.600 Neut % (Auto) 75.8 H Lymph % (Auto) 13.9 L Guthrie % (Auto) 9.1 Eos % (Auto) 0.2 Baso % (Auto) 0.4 Absolute Neuts (auto) 10.8 H Absolute Lymphs (auto) 1.97 Nucleated RBC % 0 ESR 42 H Sodium 128 L Potassium 3.4 L Chloride 89 L Carbon Dioxide 31.0 Anion Gap 8 BUN 9 Creatinine 1.00 Estim Creat Clear Calc 117.63 Est GFR (MDRD) Af Amer 110 Est GFR (MDRD) Non-Af 91 BUN/Creatinine Ratio 9.0 L Glucose 583 H* Lactic Acid 1.4 Calcium 9.2 C-React Prot Ext Range 325.00 H Radiography Diagnostic Testing: Radiology Impression Foot X-Ray 07/26/21 15:03 IMPRESSION: Suspected ulcer of the lateral plantar foot with an adjacent foreign body but no osteomyelitis. Electronically Signed: Bright Moran MD at 16:30 EDT Tel , Service support , Left foot x-ray 3 views interpreted by myself shows soft tissue swelling. Also appears to be a linear density that may be foreign body like a piece of wire or something. Otherwise no acute abnormality. No fracture. No obvious osteomyelitis. This obviously does not rule that out. Discharge Plan Triage Chief Complaint: Lower Extremity Injury ED Provider: Jordon Meredith Dx/Rx/DC Orders Clinical Impression: Diabetic foot infection, Cellulitis, Abscess, Acute hyperglycemia, Medical non- compliance, Acute hyponatremia Prescriptions: No Action NK RF: 0 Primary Care Provider: Leanne Antonio Referrals: Leanne Antonio MD [Primary Care Provider] - Disposition Disposition: Acute Care [facility]
[2021-07-26 15:39] VITALS: BP 125/90; PULSE 95; RESP 18; TEMP 37.3; O2SAT 96
[2021-07-26 15:48] LABS: Absolute Lymphocyte Count 1.97 X10^3/uL (0.83-4.51); Absolute Neutrophil Count 10.8 X10^3/uL (2.0-7.7); Basophil# 0.05 X10^3/uL; Basophil% 0.4 % (0-1); Eosinophil# 0.03 X10^3/uL; Eosinophils% 0.2 % (0-5); Hemoglobin 13.5 g/dL (13.0-16.5); Lymphocyte # 1.97 X10^3/ul (0.83-4.51); Lymphocyte % 13.9 % (19-41); Mean Corp Hgb Conc 34.6 g/dL (32-36); Mean Corpuscular Hgb 28.4 pg (27.0-32.0); Mean Corpuscular Volume 81.9 fL (80-94); Mean Platelet Vol. 11.1 fl (6.2-12.0); Monocyte# 1.29 X10^3/uL; Monocyte% 9.1 % (0-10); NRBC Flagged by Analyzer 0 % (0-5); Neutrophil # 10.76 X10^3/uL (2.7-7.7); Neutrophil % 75.8 % (47-70); Platelet Count 308 K/mm3 (150-450); RBC Distribution Width CV 11.8 % (11.6-14.6); RBC Distribution Width SD 34.9 fl (35.1-43.9); Red Blood Count 4.76 M/mm3 (4.6-6.2); White Blood Count 14.2 K/mm3 (4.4-11.0)
[2021-07-26] MEDS: 0.9% Normal Saline 1,000 ML 1000 ML IV (15:48)
[2021-07-26] MEDS: Ondansetron 4 MG/2 ML Vial IV (15:49)
[2021-07-26] MEDS: morphine 8 MG/ML Syringe IV (15:49)
--- NOTE | 2021-07-26 15:59 | CON.PCM_ITS ---
Assessment & Plan Assessment/Plan (1) Cellulitis: QUALIFIERS: Laterality: right Site of cellulitis of extremity: upper extremity PLAN: I reviewed and discussed his case. He has leukocytosis with a white blood cell count of 14.2. His additional labs are pending. Temp 99.2 and pulse 95 noted. His x-ray was recently obtained and reviewed without soft tissue emphysema. There is a small metallic trish to the plantar mid arch level which is consistent with a metal fragment. There is no fracture, dislocation or Charcot event seen. The formal radiology report is pending still. Verbal consent was obtained to do kaley during his bulla for further evaluation. The area was prepped with Betadine and sterile scissors and pickup were used to remove the bulla. Cultures of the devitalized tissue were obtained including aerobic, anaerobic, and MRSA PCR. Blood cultures have already been obtained. I am concerned he is at risk for limb loss or need for surgery due to his puncture wound status and extremely uncontrolled diabetes is also suspected. An MRI is recommended. Small metallic trish is not anticipated to cause a meaningful artifact. Will discuss w/ MRI team and consider CT scan otherwise. He understands he may need to have an incision and drainage in the operating room. NPO for tomorrow AM. IV vancomycin and Zosyn was started for broad-spectrum purposes. To maintain a nonweightbearing status to left lower extremity. I was asked to be on consultation by ER physician Dr. Meredith. I will follow him closely. Thank you for the consultation. Please do not hesitate to call me with any questions. Umu London DPM, [facility] [phone] HPI Consult Data Date of Consult: 07/26/21 HPI Narrative HPI Narrative: NORBERTO CAMARILLO, is a 35 M who presents with a left diabetic foot infection. 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 He had a piece of metal that he noticed was sticking out of the bottom of his shoe and be lieves a piece of it extended to the inner part of the shoe when he was walking on it. He is not sure if there is retained metal in his foot. He relates he first noticed some swelling on Thursday and then noticed the redness on his foot on Thursday. He has had prior diabetic foot infections but not to this extent. His pain is rated as an 8 out of 10 with weightbearing activity however is nonpainful seated. He denies fever, chill, nausea, vomiting. He does report unusual fatigue. He reports his hemoglobin A1c was too high to be specified the last time he had it checked. He denies claudication. He does have lack of sensation consistent with neuropathy. [facility] Medical History Diabetes Home Medications NK 07/26/21 [History Last Taken Unknown] Allergy/AdvReac Type Severity Reaction Status Date / Time No Known Allergies Allergy Verified 05/24/19 03:02 Social History Smoking Status: Never smoker ROS Constitutional Constitutional: Reports fatigue and lethargy; Denies chills or fever(s) Respiratory/Chest Respiratory/Chest: Denies cough Gastrointestinal Gastrointestinal: Denies nausea or vomiting Musculoskeletal Musculoskeletal: Reports extremity pain and numbness Integumentary Integumentary: Reports skin ulcer Neurologic Neurologic: Reports numbness Hematologic/Lymphatic Hematologic/Lymphatic: Denies easy bruising Physical Exam Const alert and oriented x3 General Appearance: cooperative HEENT normocephalic Extremity Extremity Narrative: No calf tenderness; negative Webster sign bilateral Diminished pulses 1 out of 4 PT left and palpable DP left Capillary fill time is brisk to all digits of bilateral foot. Muscle wasting noted General Extremity: edema and no tenderness to palpation of joints or ext remities; Negative for cyanosis Skin Skin Narrative: There is a bulla with serosanguineous drainage noted to the en tire plantar left arch upon debridement there is some hemorrhagic tissue and the tissue was indurated. There is no deep probing. There is no odor. Erythema extends several inches periwound involving the arch (marked with pen). No interdigital maceration or marc necrosis. There is no lymphangitic streaking. He has hair to his ankle level. General Skin Exam: Negative for erythema Neuro Neuro Narrative: lack of normal epicritic sensation via light touch is consistent with neuropathy status Psych cooperative and affect normal Lab / Micro Data Result Diagrams: 07/26/21 15:30 07/26/21 15:30 Labs: Laboratory Results - last 24 hr 07/26/21 15:30: WBC 14.2 H, RBC 4.76, Hgb 13.5, Hct 39.0 L, MCV 81.9, MCH 28.4, MCHC 34.6, RDW Std Deviation 34.9 L, RDW Coeff of James 11.8, Plt Count 308, MPV 11.1, Immature Gran % (Auto) 0.600, Neut % (Auto) 75.8 H, Lymph % (Auto) 13.9 L, Wells % (Auto) 9.1, Eos % (Auto) 0.2, Baso % (Auto) 0.4, Absolute Neuts (auto) 10.8 H, Absolute Lymphs (auto) 1.97, Nucleated RBC % 0
[2021-07-26 16:13] LABS: Lactic Acid 1.4 mmol/L (0.4-1.9)
[2021-07-26 16:17] LABS: Anion Gap 8 (5-15); BUN 9 mg/dL (7-18); Calcium,Total 9.2 mg/dL (8.5-10.1); Chloride 89 mmol/L (98-107); EST Glomerular Filtration Rate 91 mL/min (>60); Est Glom Filt Rate - Afr Amer 110 mL/min (>60); Estimated Creatinine Clearance 117.63 ml/min; Glucose 583 mg/dL (74-106); Potassium 3.4 mmol/L (3.5-5.1); Sodium Level 128 mmol/L (136-145)
[2021-07-26 16:18] LABS: Erythrocyte Sedimentation Rate 42 mm/hr (0-20)
--- NOTE | 2021-07-26 17:30 | NURSING ---
MED SURG [facility] DIABETIC FOOT INFECTION, HYPERGLYCEMIA, NON COMPLIANCE
--- NOTE | 2021-07-26 17:46 | MRI_ITS ---
EXAM: MR LEFT LOWER EXTREMITY WITHOUT INTRAVENOUS CONTRAST, FOOT CLINICAL INDICATION: foreign body, abscess -- LEFT hindfoot/ midfoot.include blister area parameters TECHNIQUE: Multiplanar and multisequence MR images of the left foot without intravenous contrast. This report was created using Chat& (ChatAnd) report generation technology. COMPARISON: Plain film done earlier FINDINGS: LIGAMENTS: MEDIAL COLLATERAL: Unremarkable. Intact. LATERAL COLLATERAL: Unremarkable. Intact. LISFRANC: Unremarkable. Intact. TENDONS: FLEXOR: Unremarkable. Intact. EXTENSOR: Unremarkable. Intact. PERONEAL: Unremarkable. Intact. TIBIALIS ANTERIOR: Unremarkable. Intact. TIBIALIS POSTERIOR: Unremarkable. Intact. MUSCLES: Unremarkable. No edema or myositis. FLUID: Unremarkable. No joint effusion. PLANTAR FASCIA: Unremarkable. Intact. BONES/JOINTS: Unremarkable. Normal forefoot alignment. No fracture. No bone marrow edema. No joint effusion. OTHER SOFT TISSUES: There is a metal foreign body in the plantar aspect of the foot. There is soft tissue swelling along the plantar soft tissue. The foreign body is causing artifact and it is difficult to evaluate the regional soft tissue. MRI/Lower Ext Joint Only (Routine) IMPRESSION: 1. There is a metal foreign body in the plantar aspect of the foot. 2. There is soft tissue swelling along the plantar soft tissue. Electronically Signed: Alon Weeks MD at 20:50 EDT , Service support ,
[2021-07-26 17:56] VITALS: BP 118/84; PULSE 101; RESP 16; TEMP 36.7; O2SAT 97
--- NOTE | 2021-07-26 17:56 | HP.PCM.HOS_ITS ---
Documented by User: Mateusz FRANCISCO 07/26/21 18:17 HPI - General General Date of Admission: 07/26/21 Date of Service: 07/26/21 Chief Complaint: Left foot infection HPI Narrative NOREBRTO CAMARILLO, is a 35 M who presents to the ED at [facility] on 07/26/2021 with a chief complaint of left lower extremity infection. Patient reports that 5 days ago he noticed his left left foot began to be irritated and become swollen. Patient initially ignored his symptoms and attempted to work through the pain and swelling, but reports that his foot only got worse. Patient reports that he has had similar skin infections in the past due to the hazardous working environment that he is employed and as well as not managing his diabetes appropriately. Patient reports that today his left foot is swollen on the bottom as well as red on the dorsal aspect of the left foot. Patient denies any migration of the left lower extremity. Patient denies any symptoms on the right lower extremity. Patient denies any other infectious symptoms to include fever, chills or N/V/D. Vital signs in the ED demonstrate a mildly elevated temperature at 99.2, variable tachycardia with a rate of 107. Patient is currently satting 93% on room air. X-rays of the left lower extremity demonstrates ulcer of the lateral plantar foot with an adjacent foreign body but no osteomyelitis. CBC demonstrates a leukocytosis of 14,000. BMP demonstrates a hyponatremia at 128 and low potassium at 3.4. Patient's glucose is elevated at 583. Podiatry consult was obtained in the ED and patient will be brought in for MRI of the left foot, IV Zosyn and vancomycin administration and possible surgical intervention. [facility] Medical History Diabetes Home Medications NK 07/26/21 [History Last Taken Unknown] Allergy/AdvReac Type Severity Reaction Status Date / Time No Known Allergies Allergy Verified 05/24/19 03:02 Family History (Updated 07/26/21 @ 18:03 by Mateusz FRANCISCO) Father Diabetes Mother Diabetes Social History (Updated 07/26/21 @ 18:04 by Mateusz FRANCISCO) household members: significant other Smoking Status: Never smoker alcohol intake: current alcohol intake frequency: a few times a week ROS Constitutional Constitutional: Reports fatigue and weakness; Denies anorexia, change in weight, chills, fever(s), malaise, night sweats or other Eyes Eyes: Denies blurry vision, change in eye color, change in vision, discharge from eye(s), double vision, erythema, eye pain, loss of vision or other ENT HEENT: Denies abnormal hearing, dysphagia, ear pain, epistaxis, headache(s), hearing loss, nasal congestion, nasal discharge, post nasal drip, sinus pressure, sore throat or other Cardiovascular Cardiovascular: Denies chest pain, claudication, dyspnea on exertion, edema, lightheadedness, orthopnea, palpitations, paroxysmal nocturnal dyspnea, rapid heart rate, syncope or other Respiratory/Chest Respiratory/Chest: Denies cough, dyspnea, excessive phlegm production, hemoptysis, productive cough, shortness of breath at rest, shortness of breath with exertion, wheezing or other Gastrointestinal Gastrointestinal: Denies abdominal pain, coffee ground emesis, constipation, diarrhea, dyspepsia, hematemesis, hematochezia, loose stools, melena, nausea, vomiting or other Genitourinary Genitourinary: Denies burning urination, difficulty urinating, dysuria, hematuria, nocturia, urinary frequency, urinary hesitancy, urinary incontinence, urinary urgency or other Musculoskeletal Musculoskeletal: Denies arthralgias, back pain, joint pain, joint stiffness, joint swelling, myalgias, neck pain or other Neurologic Neurologic: Denies abnormal gait, abnormal speech, confusion, disequilibrium, dizziness, focal weakness, headache(s), numbness, paresthesias, seizure-like activity, seizures, syncope, tingling, tremor(s) or other Psychiatric Psychiatric: Denies anxiety, depression, homicidal ideation, suicidal ideation or other Endocrine Endocrinology: Denies change in body appearance, cold intolerance, excessive sweating, heat intolerance, polydipsia, polyuria or other Hematologic/Lymphatic Hematologic/Lymphatic: Denies anemia, easy bleeding, easy bruising, lymphadenopathy or other Allergic/Immunologic Allergic/Immunologic: Denies rhinitis, hives, eczemia, asthma or other Vital Signs Vital Signs Vital Signs: 07/26/21 13:37 07/26/21 15:39 Temperature 99.2 F H 99.2 F H Temperature Source Temporal Oral Pulse Rate 107 H 95 Respiratory Rate 16 18 Blood Pressure 147/94 H 125/90 H Blood Pressure Mean 111 101 Pulse Ox 97 96 Oxygen Delivery Method Room Air Room Air Weight Weight: 190 lb Body Mass Index (BMI) 25.0 Physical Exam Const alert and oriented x3 General Appearance: cooperative HEENT normocephalic, head/scalp atraumatic and hearing grossly normal bilaterally Eyes PERRL, EOMs intact bilaterally and conjunctivae normal Neck no lymphadenopathy, supple and no JVD Resp normal respiratory effort, no retractions, no use of accessory muscles and clear to auscultation bilaterally Cardio no murmurs and no JVD Rate: tachycardic GI normal to inspection, nondistended, normoactive bowel sounds, soft to palpation and non-tender Extremity normal to inspection, full ROM and no clubbing, cyanosis or edema Skin no rashes or lesions noted, no wounds, skin turgor normal and no jaundice Neuro CN's II-XII intact bilaterally Psych affect normal Results Lab / Micro Data Result Diagrams: 07/26/21 15:30 07/26/21 15:30 Labs: Laboratory Results - last 24 hr 07/26/21 15:30: WBC 14.2 H, RBC 4.76, Hgb 13.5, Hct 39.0 L, MCV 81.9, MCH 28.4, MCHC 34.6, RDW Std Deviation 34.9 L, RDW Coeff of James 11.8, Plt Count 308, MPV 11.1, Immature Gran % (Auto) 0.600, Neut % (Auto) 75.8 H, Lymph % (Auto) 13.9 L, Marshall % (Auto) 9.1, Eos % (Auto) 0.2, Baso % (Auto) 0.4, Absolute Neuts (auto) 10.8 H, Absolute Lymphs (auto) 1.97, Nucleated RBC % 0, ESR 42 H 07/26/21 15:30: Sodium 128 L, Potassium 3.4 L, Chloride 89 L, Carbon Dioxide 31.0, Anion Gap 8, BUN 9, Creatinine 1.00, Estim Creat Clear Calc 117.63, Est GFR (MDRD) Af Amer 110, Est GFR (MDRD) Non-Af 91, BUN/Creatinine Ratio 9.0 L, Glucose 583 H*, Calcium 9.2, C-React Prot Ext Range 325.00 H 07/26/21 15:30: Lactic Acid 1.4 Radiology Impression Foot X-Ray 07/26/21 15:03 IMPRESSION: Suspected ulcer of the lateral plantar foot with an adjacent foreign body but no osteomyelitis. Electronically Signed: Bright Moran MD at 16:30 EDT Tel , Service support , Assessment & Plan Assessment/Plan (1) Diabetic foot infection: (2) Cellulitis: (3) Abscess: (4) Acute hyperglycemia: PLAN: Patient is a 35-year-old male who presents to the ED at [facility] on 07/26/2021 for diabetic left foot infection. Patient will be admitted for management of left foot infection and for possible surgical intervention by podiatry. 1) Diabetic left foot wound Patient reports a 5-day history of worsening left foot pain, swelling and redness. Patient has a cellulitis history due to his work environment as well as not managing his diabetes appropriatel. Patient has a mildly elevated temperature at 99.2 as well as a tachycardia. CBC demonstrates a leukocytosis of 14,000. CRP elevated at 325. ESR elevated at 42. Podiatry consulted: Would like patient to be admitted for left foot MRI to assess for abscess, continued IV antibiotics and possible surgical intervention in a.m. Plan; admit to [facility], continue vancomycin and Zosyn, podiatry consulted, Tylenol as needed, Zofran as needed. 2) acute hyperglycemia Patient reports poor compliance with his diabetic medications. Patient states that it has been many years since he has seen a primary care provider and does not take any diabetic medications at home. POC glucose currently 538. Plan; hemoglobin A1c ordered, Accu-Cheks with sliding scale insulin ordered. 3) hyponatremia Sodium currently 128. Suspect related to poor oral intake, is admitted by patient. Plan; fluids initiated, trend BMP. 4) hypokalemia Potassium currently 3.4. Suspect related to poor oral intake. Plan; replace potassium, trend BMP. DVT prophylaxis - not indicated, low risk. CODE STATUS: Full code Vaccination status: Patient has not been vaccinated against COVID-19. Was not interested in receiving any information about the Covid vaccine at this time. Patient was advised if he changes mind to alert his care provider. Patient seen by Mateusz Galvez PA-C, under the supervision of Dr. Mckenzie. Documented by User: Dr. Nadia Mckenzie MD 07/26/21 19:47 HPI - General General Date of Admission: 07/26/21 [facility] Medical History Diabetes Home Medications NK 07/26/21 [History Last Taken Unknown] Allergy/AdvReac Type Severity Reaction Status Date / Time No Known Allergies Allergy Verified 05/24/19 03:02 Family History (Updated 07/26/21 @ 18:03 by Mateusz FRANCISCO) Father Diabetes Mother Diabetes Social History (Updated 07/26/21 @ 18:04 by Mateusz FRANCISCO) household members: significant other Smoking Status: Never smoker alcohol intake: current alcohol intake frequency: a few times a week Results Lab / Micro Data Result Diagrams: 07/26/21 15:30 07/26/21 15:30 Charges/Coding Addendum Addendum: This patient was seen in conjunction with NOLAN King. I have independently interviewed and examined the patient and reviewed pertinent historical, laboratory, and other data. Please refer to NOLAN King's note for his patient's presentation, findings, and recommendations. 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 He noticed a piece of metal sticking on the bottom of his shoes a couple of days ago. He had diminished sensation in his toes. He pulled out the piece of metal from the shoe and was monitoring the ulcer. He noticed redness and swelling worsening in his left foot ongoing for about 5 days. Pain is worse with ambulation. Vitals were stable. X-ray of the foot showed suspected ulcer of the lateral plantar foot with an adjacent foreign body but no osteomyelitis. Podiatry was consulted from the ED. Physical Exam: Gen: Appears well, not pale, not jaundiced CVS:HS I +II, regular, no murmurs RESP: CTA GI: BS present and normal, soft, nontender, no palpable organs EXT: Left foot was dressed ASSESSMENT: 1. Acute left foot diabetic ulcer, concerning for possible osteomyelitis/abscess 2. Type II DM, uncontrolled, 3. Hyperglycemia 4. Hypokalemia Plan: Replace potassium IV vancomycin and Zosyn MRI per podiatry Check HbA1c Start on Lantus 10 units nightly, medium/high dose insulin sliding scale Repeat blood work in a.m. Visit Charges Inpatient E&M: 86900 Init Hosp L3
[2021-07-26 18:00] VITALS: BMI 52.7
--- NOTE | 2021-07-26 18:09 | NURSING ---
PT HAS NOT GOTTEN FLU OR COVID VACCINE
[2021-07-26 18:19] VITALS: BP 127/89; PULSE 90; RESP 18; TEMP 36.9; O2SAT 98
[2021-07-26 19:38] LABS: M R Staph aureus DNA By PCR POSITIVE (Negative); Probe Check PASS; Staph aureus DNA By PCR POSITIVE (Negative)
[2021-07-26] MEDS: Insulin Lispro 100 UNIT/ML INSULN.PEN 14 UNIT SC (19:57)
[2021-07-26] MEDS: 0.9% Saline Lock 10 ML Syringe IV ×2 (20:00→22:36)
[2021-07-26] MEDS: Potassium Chloride Oral Tablet 20 MEQ 60 MEQ PO (20:03)
[2021-07-26 20:11] LABS: Bedside Glucose 417 mg/dL (70-110)
--- NOTE | 2021-07-26 20:49 | PCM.PN.BLA ---
Progress Note Discussed case with podiatry surgeon who was concerned about patient severe hyperglycemia in view of patient's having surgery in a.m.. Patient is not on home insulin. 10 units Lantus nightly ordered. Will change to 15 units nightly. Initially patient placed on Accu-Chek QA CHS with correction scale insulin. Will put patient on Accu-Chek every 4 hours with correction scale insulin.
[2021-07-26] MEDS: 0.9% Normal Saline 1,000 ML 125 ML IV (20:58)
--- NOTE | 2021-07-26 21:00 | PCM.RX.CS ---
Consult Pharmacy has been consulted to manage selected antiobiotic: Vancomycin Suspected Infection: Other Labs: Sodium 128 mmol/L (136-145) L 07/26/21 15:30 Potassium 3.4 mmol/L (3.5-5.1) L 07/26/21 15:30 Chloride 89 mmol/L (98-107) L 07/26/21 15:30 Carbon Dioxide 31.0 mmol/L (21.0-32.0) 07/26/21 15:30 Anion Gap 8 (5-15) 07/26/21 15:30 BUN 9 mg/dL (7-18) 07/26/21 15:30 Creatinine 1.00 mg/dL (0.70-1.30) 07/26/21 15:30 Est GFR (MDRD) Af Amer 110 mL/min (>60) 07/26/21 15:30 Est GFR (MDRD) Non-Af 91 mL/min (>60) 07/26/21 15:30 BUN/Creatinine Ratio 9.0 RATIO (10-20) L 07/26/21 15:30 Glucose 583 mg/dL (74-106) H* 07/26/21 15:30 Goal Trough: 15-20 mcg/mL Pharmacy Plan for Drug Dosing: NEW START IV VANCOMYCIN Consulting Physician: Jonah Indication: Diabetic Foot Goal Trough: 15-20 SrCr: 1 CrCl: >100 Comments: pt received a x1 dose of 2000mg in the ER on 07/26/21 at 1644 Vancomcyin Dose: based on pts weight and renal function, recommend an initial dose of 1500mg q8h starting 07/27/21 at 0000 Pending Level: 07/27/21 at 1530 Pharmacy Service will continue to monitor and adjust dosing as required. Follow-Up Labs: Trough Vancomycin - 07/27/21 at 1530
[2021-07-26 21:18] LABS: Hemoglobin A1c 13.5 % (3.8-5.6)
[2021-07-26 22:10] VITALS: BMI 23.9
[2021-07-26 22:26] LABS: Probe Check PASS; Specimen Processing Control PASS
[2021-07-26 23:00] LABS: Bedside Glucose 304 mg/dL (70-110)
[2021-07-27] VITALS (10 sets, daily range): BP systolic 99–151; BP diastolic 63–97; PULSE 82–99; RESP 16–18; TEMP 36.1–37.5; O2SAT 93–97
[2021-07-27] MEDS: Insulin Lispro 100 UNIT/ML INSULN.PEN SC ×5 (00:21→21:36)
[2021-07-27 00:35] LABS: Bedside Glucose 248 mg/dL (70-110)
--- NOTE | 2021-07-27 01:23 | PCM.RX.CS ---
Consult Pharmacy has been consulted to manage selected antiobiotic: Vancomycin Type of Consult: Follow-up Suspected Infection: Skin/Soft tissue Prior Doses of Antibiotics Received/Current Regimen: Medications Vancomycin HCl (Vancomycin) 1,000 mg in 200 mls @ 200 mls/hr IV Q8H CHRIS Discontinued Medications Vancomycin HCl 1,500 mg/ (Sodium Chloride) 530 mls @ 250 mls/hr IV Q8H CHRIS Stop: 07/27/21 02:40 Last Admin: 07/27/21 00:27 Dose: 250 mls/hr Vancomycin HCl 2,000 mg/ (Sodium Chloride) 540 mls @ 250 mls/hr IV X1 ONE Stop: 07/26/21 17:13 Last Admin: 07/26/21 21:01 Dose: Infused Labs: Sodium 128 mmol/L (136-145) L 07/26/21 15:30 Potassium 3.4 mmol/L (3.5-5.1) L 07/26/21 15:30 Chloride 89 mmol/L (98-107) L 07/26/21 15:30 Carbon Dioxide 31.0 mmol/L (21.0-32.0) 07/26/21 15:30 Anion Gap 8 (5-15) 07/26/21 15:30 BUN 9 mg/dL (7-18) 07/26/21 15:30 Creatinine 1.00 mg/dL (0.70-1.30) 07/26/21 15:30 Est GFR (MDRD) Af Amer 110 mL/min (>60) 07/26/21 15:30 Est GFR (MDRD) Non-Af 91 mL/min (>60) 07/26/21 15:30 BUN/Creatinine Ratio 9.0 RATIO (10-20) L 07/26/21 15:30 Glucose 583 mg/dL (74-106) H* 07/26/21 15:30 Weight used for dosin.3 kg Estimated Creatinine Clearance: 117 Goal Trough: 15-20 mcg/mL Pharmacy Plan for Drug Dosing: Vancomycin dosing was re-calculated due to adjustment of pt's weight from 181.5kg to 82.3kg. Since in the first two doses the pt received 35% higher dosage than the 82.3kg would have recommended, the continuing dosing interval was extended roughly 35% for initial dose of the corrected regimen. Will continue at 1000mg q8h and draw a trough level prior to the fourth total dose. Pharmacy Service will continue to monitor and adjust dosing as required. Follow-Up Labs: Trough Vancomycin Labs to be done on [date and time ordered]: 07/27/21 @1900
[2021-07-27 04:36] LABS: Bedside Glucose 264 mg/dL (70-110)
--- NOTE | 2021-07-27 04:42 | NURSING ---
Humalog ashley is off d/t late first dose.
--- NOTE | 2021-07-27 05:00 | EKG12_ITS ---
Test Reason : PRE OP Blood Pressure : / mmHG Vent. Rate : 087 BPM Atrial Rate : 087 BPM P-R Int : 148 ms QRS Dur : 104 ms QT Int : 384 ms P-R-T Axes : 062 055 067 degrees QTc Int : 462 ms Normal sinus rhythm Normal ECG When compared with ECG of 07-MAR-2019 23:06, No significant change was found Confirmed by VIRGINIA CHRISTINA, ITZEL ([id number]), film editor supervisor HAYDEN SPEARS ([id number]) on 07/29/2021 12:57:38 PM Referred By: Nadia Mckenzie Confirmed By:ITZEL COLEMAN MD
[2021-07-27] MEDS: 0.9% Normal Saline 1,000 ML 125 ML IV ×2 (06:30→11:12)
[2021-07-27 06:56] LABS: Absolute Lymphocyte Count 2.65 X10^3/uL (0.83-4.51); Basophil# 0.05 X10^3/uL; Basophil% 0.5 % (0-1); Eosinophil# 0.13 X10^3/uL; Eosinophils% 1.2 % (0-5); Hematocrit 30.5 % (40-54); Hemoglobin 10.6 g/dL (13.0-16.5); Lymphocyte # 2.65 X10^3/ul (0.83-4.51); Mean Corp Hgb Conc 34.8 g/dL (32-36); Mean Corpuscular Hgb 28.8 pg (27.0-32.0); Mean Corpuscular Volume 82.9 fL (80-94); Mean Platelet Vol. 10.4 fl (6.2-12.0); Monocyte# 1.17 X10^3/uL; Monocyte% 10.6 % (0-10); NRBC Flagged by Analyzer 0 % (0-5); Neutrophil # 6.98 X10^3/uL (2.7-7.7); Neutrophil % 63.2 % (47-70); Platelet Count 255 K/mm3 (150-450); RBC Distribution Width CV 11.8 % (11.6-14.6); RBC Distribution Width SD 35.8 fl (35.1-43.9); Red Blood Count 3.68 M/mm3 (4.6-6.2)
[2021-07-27 07:33] LABS: ALB/GLOB Ratio 0.5 RATIO (0.9-2.4); AST(SGOT) 8 U/L (15-37); Alanine Aminotransfer ALT/SGPT 11 U/L (16-61); Albumin, Serum 2.2 g/dL (3.2-5.0); Alkaline Phosphatase 76 U/L (45-117); Anion Gap 6 (5-15); BUN 4 mg/dL (7-18); BUN/Creat Ratio 7.3 RATIO (10-20); Calcium,Total 8.4 mg/dL (8.5-10.1); Chloride 103 mmol/L (98-107); Creatinine, Serum 0.55 mg/dL (0.70-1.30); EST Glomerular Filtration Rate 180 mL/min (>60); Est Glom Filt Rate - Afr Amer 218 mL/min (>60); Estimated Creatinine Clearance 213.87 ml/min; Globulin 4.1 g/dL (2.2-4.2); Glucose 165 mg/dL (74-106); Potassium 3.1 mmol/L (3.5-5.1); Protein, Total 6.3 g/dL (6.4-8.2); Sodium Level 137 mmol/L (136-145)
--- NOTE | 2021-07-27 08:15 | RAD_ITS ---
STUDY: X-RAY - LEFT FOOT CLINICAL: Male, 35 years old. Foreign body removal TECHNIQUE: 2 fluoroscopic view(s) of the left foot. COMPARISON: 07/26/2020 RAD/Foot 2 Views IMPRESSION: First fluoroscopic image demonstrates radiopaque foreign body in the lateral soft tissues. Second fluoroscopic image and does not demonstrate foreign body. Electronically Signed: Gerald Flores MD at 23:51 EDT Tel , Service support ,
[2021-07-27] MEDS: Lidocaine 1% (30 ml sdv) 30 ML Vial (08:25)
[2021-07-27] MEDS: Bupivacaine Mpf 0.5% 30 ML VIAL (08:25)
--- NOTE | 2021-07-27 08:30 | FORE_PTH ---
PATIENT: NORBERTO CAMARILLO LOC: [facility] U#:[id number] AGE/SX: 35/M ROOM: [facility]319 RE07/26/[address]: Dr. Lucia Gore MD : 1985 BED: 1 DIS: 07/29/2021 SPEC #: [id number] RECD: 07/27/21 09:45 STATUS: MAYCO EDUARDA #: [id number] STEVEN: 07/27/21 08:[address]: Umu London DEPT: SURGICAL PATHOLOGY RECD BY: Imani Mccoy ENTERED: 07/29/21 09:21 SP TYPE: FOREIGN B OTHR DR: MD Dr. Leanne Enciso MD Dr. Jeanna Fascione, DPM Dr. Lucia Gore MD Tissues: FOREIGN BODY Procedures: Surgery Specimen Level III Comments: @ Ordering doctor for BÁRBARA edited from to @ kenan MARTINI at 07/29/21 1527 @ Submitting doctor edited from to @ by VINI at 07/29/21 1527 HEADER OPERATION: Foreign body removal PRE-OP DIAGNOSIS: Left foot foreign body with abscess TISSUE SUBMITTED: Foreign body left foot MICROSCOPIC DIAGNOSIS Foreign body left foot: A piece of fibroconnective tissue with acute inflammation and abscess formation. A metallic foreign body (gross only). MARTIN:johan 07/30/2021 MICROSCOPIC DESCRIPTION Slides are reviewed. GROSS DESCRIPTION Received in fixative is one container labeled with the patient's name and designated left foot foreign body. The specimen consists of an elongated fragment of dark metallic wire measuring 7 mm in length and 0.1 mm in average diameter. Attached to this is an irregular fragment of indurated, issa tissue measuring 0.6 x 0.2 x 0.1 cm. The soft tissue is submitted in its entirety in one cassette. / AM:johan 07/29/21 TC:2 CPT: 13864
--- NOTE | 2021-07-27 09:14 | PCM.OPRPT ---
Problems Associated Problem List Diagnoses (1) Foreign body in left foot: (2) Abscess: Report of Operation Date of Procedure: 07/27/21 Pre-Operative Diagnosis: Foreign body, left foot Abscess left foot Post-Operative Diagnosis: Foreign body, left foot Abscess left foot Surgery/Procedure Performed:: 1. Removal foreign body left foot 2. Incision and drainage left foot Description of Surgical Findings:: Hemostasis: Well-padded pneumatic left ankle tourniquet, 250 mmHg, 14 minutes Materials: None Specimens: Foreign body sent to pathology. Microbiology specimen sent Complications: None The patient tolerated the procedure and anesthesia well. The patient was transported to the PACU isolation room with vital signs stable and vascular status intact to the surgical limb. To ice and elevate for pain and inflammation management. Postoperative x-rays were reviewed prior to leaving the operating room. There was no longer any foreign body or new acute injuries noted. Postoperative orders were entered electronically. 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 He has some degree of neuropathy and is not sure how long this was going on. He noticed swelling and blister and redness about 4 days ago and presented to the emergency room yesterday afternoon. He had leukocytosis. Clinically he had a large bulla to the plantar heel extending into the arch with intense erythema extending several inches around the site with skin induration. He did not have lymphangitic streaking or distinct odor. There is no visualized clinical foreign body identified at this time. His foot x-ray was reviewed without soft tissue emphysema. There was a small metallic foreign body identified in the superficial tissue just distal to the heel region. This was also confirmed with MRI. It did not appear that there was a distinct abscess in the deep foot musculature however there was some loculation in the heel pad region that corresponds with his bulla and wound site and is suspicious for a superficial abscess or devitalized tissue region. There was no apparent osteomyelitis on x-ray or MRI. He was seen preoperatively by medical hospitalist and diabetic management greatly appreciated. It is also noted that he did test positive for Covid during the preoperative screening process and isolation precautions were initiated. Preoperative H&P were reviewed including his diagnostic data. His hyperglycemia and hyponatremia were identified during his preoperative diagnostic data testing. Preoperative indications, planned procedure, benefits, risk, anticipated healing time and management were reviewed. The patient understands and elects proceed with surgery at this time. No guarantees were made. The patient understands risk and complications include but are not limited to following: pain, swelling, scarring, need for further surgery, tendon contracture, transfer lesion, arthritis, need for further surgery, delayed or nonhealing, infection, blood clot, allergic reaction, loss of limb, function, or life. The informed surgical limb and consent were signed. I answered all the patient's questions. Procedure in Detail: The patient was transported to the operating room via cart and placed on the operating room table. COVID-19 precautions were followed according to hospital operating room protocol at this time and throughout the entire procedure. Final verification of the patient, surgery, limb designation were performed via the timeout procedure. MAC anesthesia was initiated by the anesthesia team. He is already receiving broad-spectrum IV antibiotics on the medical floor. I administered the local anesthetic as noted in a preoperative manner. A well-padded pneumatic left tourniquet was placed at the ankle level. The left lower extremity was prepped and draped in the usual aseptic manner. Mini C-arm was used to trifurcate the foreign body and this was excised with a 15 blade and forceps. This was sent to pathology. Intraoperative x-ray was next utilized to confirm this has been successfully removed and there are no other acute injuries. This small metallic foreign body measured a couple millimeters in length and there was adjacent purulence and ulcer noted at this site. Esmarch was used to exsanguinate the limb and the tourniquet was inflated at this time. The plantar foot bulla extends along the parameters of the distal heel fat pad medially into the arch and distally into the midfoot region. There was visualized necrotic and devitalized tissue at the foreign body removal site and adjacent and distal lateral and distal medial manner. The clear devitalized tissue measured approximately 2 x 2 x 0.1 cm. A freer elevator was used to evaluate where the direction purulence was originating. A 15 blade scalpel was used to make a full-thickness incision into the infected heel pad that extended medially into the arch in which purulence was noted. A rongeur and 15 blade scalpel were used to excise any purulent, necrotic, and devitalized fat pad and other subcutaneous tissue. Deep to the necrotic tissue removal, the plantar fascial band was identified and appeared healthy and intact. This post debridement measurement was 4 cm x 7 cm x 2.7 cm. Approximately 40% of that measure area included wound. Next, 3 L of normal saline was used to irrigate with pulse lavage to the site. At this time clean instruments adjacent drapes and gloves were utilized. Post irrigation cultures were obtained as noted. The tourniquet was deflated at this time and pressure was applied to maintain hemostasis. No pulsatile bleeding was noted. Minimal electrocauterization was needed. The remaining tissue was purulent and necrotic free. There is no additional purulence on expression. The adjacent skin appeared salvageable. A dressing consisting of Betadine soaked gauze were packed into the wound and this was further dressed with 4 x 4 gauze, Kerlix, abdominal pad, and Mehdi wrap. After procedure: The patient tolerated the procedure and anesthesia well. The patient was transported to the PACU [facility] isolation room with vital signs stable and vascular status intact to the surgical limb. To ice and elevate for pain and inflammation management. Postoperative x-rays were reviewed prior to leaving the operating room. Postoperative orders were entered electronically. He will continue on IV antibiotics while at the hospital. Management per hospital service is greatly appreciated. I will follow him closely while in house. He is at risk for further limb loss due to his uncontrolled diabetes and his current goal is to stabilize him from an infection standpoint and attempt to proceed with wound care. Umu [place] DPM, [facility] Grafts/Implants Used: none Admit VTE Documentation VTE Present on Admission: No VTE Mechan Device Prophylaxis: SCD's VTE Pharm Prophylaxis ordered?: Yes
[2021-07-27] MEDS: Vancomycin IV 1,000 MG/200 ML BAG 200 MG IV ×2 (11:05→20:01)
--- NOTE | 2021-07-27 11:14 | PCS.PANDOC ---
PANDEMIC DOCUMENTATION INITIATED: Date: 06/10/2021 Time: 190
[2021-07-27 11:26] LABS: Probe Check PASS; Staph aureus DNA By PCR POSITIVE (Negative)
[2021-07-27 11:30] LABS: M R Staph aureus DNA By PCR POSITIVE (Negative)
--- NOTE | 2021-07-27 12:28 | PN.HOSP_ITS ---
Documented by User: Mateusz FRANCISCO 07/27/21 12:40 Subjective Subjective Patient is a 35-year-old male comfortably resting in bed status post foreign body removal, alert and orient x3. Patient does not report any pain in his lower extremity and does not appear to be in any acute distress. Denies chest pain, shortness of breath, palpitations, hemoptysis, sputum production, fever, chills, N/V/D. Objective Data Objective Data Vital Signs: Vital Signs Temp Pulse Resp BP Pulse Ox 98.5 F 86 18 130/96 H 97 07/27/21 11:07 07/27/21 11:07 07/27/21 11:07 07/27/21 11:07 07/27/21 11:07 Oxygen Delivery Method Room Air Weight: 181 lb 8 oz Body Mass Index (BMI) 23.9 Intake & Output: Intake and Output for Last 24 Hours 07/25/21 07/26/21 07/27/21 23:59 23:59 23:59 Intake Total 1640 / 1640 2517.09 / 2517.09 Balance 1640 / 1640 2517.09 / 2517.09 Lab / Micro Data Result Diagrams: 07/27/21 06:45 07/27/21 06:45 Labs: Laboratory Results - last 24 hr 07/26/21 15:30: WBC 14.2 H, RBC 4.76, Hgb 13.5, Hct 39.0 L, MCV 81.9, MCH 28.4, MCHC 34.6, RDW Std Deviation 34.9 L, RDW Coeff of James 11.8, Plt Count 308, MPV 11.1, Immature Gran % (Auto) 0.600, Neut % (Auto) 75.8 H, Lymph % (Auto) 13.9 L, Kingfisher % (Auto) 9.1, Eos % (Auto) 0.2, Baso % (Auto) 0.4, Absolute Neuts (auto) 10.8 H, Absolute Lymphs (auto) 1.97, Nucleated RBC % 0, ESR 42 H 07/26/21 15:30: Sodium 128 L, Potassium 3.4 L, Chloride 89 L, Carbon Dioxide 31.0, Anion Gap 8, BUN 9, Creatinine 1.00, Estim Creat Clear Calc 117.63, Est GFR (MDRD) Af Amer 110, Est GFR (MDRD) Non-Af 91, BUN/Creatinine Ratio 9.0 L, Glucose 583 H*, Calcium 9.2, C-React Prot Ext Range 325.00 H 07/26/21 15:30: Lactic Acid 1.4 07/26/21 15:30: Hemoglobin A1c 13.5 H 07/26/21 15:50: S.aureus Protein A PCR POSITIVE H, MRSA (PCR) POSITIVE H 07/26/21 19:55: POC Glucose 417 H 07/26/21 20:55: COVID-19 ([place]) Positive 07/26/21 22:53: POC Glucose 304 H 07/27/21 00:20: POC Glucose 248 H 07/27/21 04:24: POC Glucose 264 H 07/27/21 06:45: WBC 11.0, RBC 3.68 L, Hgb 10.6 L, Hct 30.5 L, MCV 82.9, MCH 28.8, MCHC 34.8, RDW Std Deviation 35.8, RDW Coeff of James 11.8, Plt Count 255, MPV 10.4, Immature Gran % (Auto) 0.500, Neut % (Auto) 63.2, Lymph % (Auto) 24.0, Kingfisher % (Auto) 10.6 H, Eos % (Auto) 1.2, Baso % (Auto) 0.5, Absolute Neuts (auto) 7.0, Absolute Lymphs (auto) 2.65, Nucleated RBC % 0 07/27/21 06:45: Sodium 137, Potassium 3.1 L, Chloride 103, Carbon Dioxide 28.0, Anion Gap 6, BUN 4 L, Creatinine 0.55 L, Estim Creat Clear Calc 213.87, Est GFR (MDRD) Af Amer 218, Est GFR (MDRD) Non-Af 180, BUN/Creatinine Ratio 7.3 L, Glucose 165 H, Calcium 8.4 L, Total Bilirubin 0.40, AST 8 L, ALT 11 L, Alkaline Phosphatase 76, Total Protein 6.3 L, Albumin 2.2 L, Globulin 4.1, Albumin/Globulin Ratio 0.5 L 07/27/21 09:11: S.aureus Protein A PCR POSITIVE H Micro: Microbiology 07/26/21 15:50 Wound Drainage - Aerobic & Anaerobic Swabs Wound Culture - Preliminary Streptococcus agalactiae (B) Radiography Diagnostic Testing: Radiology Impression Foot X-Ray 07/26/21 15:03 IMPRESSION: Suspected ulcer of the lateral plantar foot with an adjacent foreign body but no osteomyelitis. Electronically Signed: Bright Moran MD at 16:30 EDT Tel , Service support , Lower Extremity MRI 07/26/21 17:46 IMPRESSION: 1. There is a metal foreign body in the plantar aspect of the foot. 2. There is soft tissue swelling along the plantar soft tissue. Electronically Signed: Alon Weeks MD at 20:50 EDT , Service support , Physical Exam Const alert, oriented x3 and no apparent distress HEENT head/scalp atraumatic and moist oral mucous membranes Head and Scalp: normocephalic Eyes PERRL, EOMs intact bilaterally and conjunctivae normal Neck no lymphadenopathy, supple and no JVD Resp normal respiratory effort, no retractions, no use of accessory muscles and clear to auscultation bilaterally Cardio regular rate, regular rhythm, no murmurs and no JVD GI normal to inspection, nondistended, normoactive bowel sounds, soft to palpation and non-tender Extremity normal to inspection, full ROM and no clubbing, cyanosis or edema Skin no rashes or lesions noted, no wounds, skin turgor normal and no jaundice Neuro CN's II-XII intact bilaterally Psych affect normal Assessment & Plan Assessment/Plan (1) Foreign body in left foot: (2) Cellulitis: QUALIFIERS: Laterality: right Site of cellulitis of extremity: upper extremity (3) Cellulitis: (4) Acute hyperglycemia: (5) Asymptomatic COVID-19 virus infection: PLAN: Day 1 Discharge planning: Current plan is for patient to discharge home, PT/OT eval ordered in case management is following. 1) lower left extremity cellulitis/abscess/foreign body/diabetic foot ulcer Status post foreign body removal of the left lower extremity which revealed a m etal shard in the left foot. Podiatry following. MRSA PCR pending, staph aureus PCR positive. Tissue cultures pending. Blood cultures pending. Plan; remain admitted overnight for monitoring, continue vancomycin and Zosyn, Tylenol as needed, Zofran as needed, albuterol as needed, oxycodone as needed. 2) acute hyperglycemia in the setting of uncontrolled diabetes mellitus type 2 POC glucose currently 264. Hemoglobin A1c currently 13.5. Plan; continue Accu- Cheks with sliding scale insulin, basal insulin 15 units at bedtime ordered. 3) asymptomatic COVID-19 infection Denies shortness of breath, fever, chills, sputum production, N/V/D. Vital signs stable and patient is afebrile. Currently satting 97% on room air. CBC does not demonstrate a leukocytosis. Plan; continue to monitor. DVT prophylaxis - low risk, not indicated Patient seen by Mateusz Galvez PA-C, under the supervision of Dr. Carreno. Documented by User: Dr. Vishal Carreno MD 07/27/21 15:25 Subjective Subjective The patient was taken to the OR in the morning. Incision and drainage of left foot was done by bookkeeping machine operator. Objective Data Lab / Micro Data Result Diagrams: 07/27/21 06:45 07/27/21 06:45 Physical Exam Narrative General: Alert, Oriented x3, Cooperative HEENT: Atraumatic, PERRLA, EOMI, Normocephalic Oral: No Gingival or Mucosal Lesions/ Ulcerations Neck: Supple, No JVD, Negative Carotid Bruits Lungs: Air entry diminished in bilateral lung bases. No crepitation/rhonchi Cardiovascular: Regular rate, Regular Rhythm, Normal S1, Normal S2, No murmurs Abdomen: Bowel Sounds Present, Soft, Non Tender, Non-Distended : No renal angle tenderness. No suprapubic tenderness. Extremities: No edema, Capillary Refill Less than 3 Seconds Skin: Status post surgery. Dressing is intact. Musculoskeletal: No Tenderness to Palpation of Joints or Extremities Neurological: Cranial nerves II-XII grossly intact, DTR 2+/4 and Symmetrical, Neuro grossly intact Psych/Mental Status: Normal Affect, Appropriate. Assessment & Plan Assessment/Plan (1) Foreign body in left foot: (2) Cellulitis: QUALIFIERS: Laterality: right Site of cellulitis of extremity: upper extremity PLAN: This patient was seen in conjunction with NOLAN Valderrama. I have independently interviewed and examined the patient and reviewed pertinent history, examination findings, laboratory and plan of management. I have reviewed the note and agree with the documented findings with the few additional points. In brief, patient is admitted for left Charcot foot infection with bulla with serosanguineous discharge plantar aspect of left arm cough with surrounding cellulitis. Patient was taken to the OR today. Was found to have abscess. Removal of foreign body and incision and drainage was done. MRSA PCR nasal screen positive. Patient on vancomycin and Zosyn. Tissue cultures are pending. Diabetes mellitus type 2 with diabetic foot: Patient has baseline neuropathy. A1c 13.5. Glucose uncontrolled at baseline. Started on lispro insulin 15 units subcutaneous 3 times daily and Lantus 20 mg at bedtime daily. Titrate according to the Glucocheck's. Found asymptomatic COVID-19 on PCR. Patient moved to third floor. I have discussed my assessment with NOLAN Valderrama and orders have been reviewed. Charges/Coding Visit Charges Inpatient E&M: 70178 Subs Hosp L2
--- NOTE | 2021-07-27 14:57 | CASEMGMT ---
Face to Face with patient for initial transition planning/care coordination assessment. CHANDRA HERNANDEZ introduced self and role at [facility], voices understanding. Care providers, pharmacy, and demographics verified. PCP: [facility] Specialists: None Preferred Pharm[facility]: [facility] Insurance: [place] Prescription Benefit: yes Living Will/HPOA: None LNOK: Father-Joao Davenport Living Arrangements: Pt currently living with his significant other in a single story home with one step to enter. Pt states he is independent with all ADLs and drives. Transportation: Pt drives, Pt's S.O. would be available to drive him to appointments if needed. DME: pt states his parents have multiple sets of crutches if needed. Pt denies any other DME. DM DME: Pt states he does have a glucometer and strips but states he doesn't check his glucose very often. States when he does check it the meter reads high. Pt states he stopped taking his DM medications a month ago when the prescriptions ran out. Pt states he will fill any scripts he receives and will begin to take the medications again as directed. Pt states he has tried to exercise, lose weight, and watch his diet for many years and expressed frustration that this did not resolve his DM. Pt declined to be referred to an instructional paraprofessional and stated if he was referred he would likely not attend an appointment. Wound Care: Pt states he feels he will be able to change his dressings on his foot as needed. HHC/SNF: Denies previous HHC or SNF Plan: pt plans to return home with the support of his S.O. and family. This RN DAVID discussed wound dressing needs with NOLAN Garza with need for wound supply prescriptions upon discharge. Will continue to monitor and assist as additional dc needs are identified. Yoon Pantoja RN CM
[2021-07-27] MEDS: Insulin Lispro 100 UNIT/ML INSULN.PEN 15 UNIT SC (16:22)
[2021-07-27 16:31] LABS: Bedside Glucose 309 mg/dL (70-110)
[2021-07-27 17:56] LABS: Bedside Glucose 181 mg/dL (70-110)
[2021-07-27 19:56] LABS: Vancomycin, Trough Level 6.3 ug/mL (5.0-15.0)
--- NOTE | 2021-07-27 20:50 | NURSING ---
Returned call from pt's mother, Renetta. Gave update on pt at this time.
--- NOTE | 2021-07-27 22:19 | PCM.RX.CS ---
Consult Pharmacy has been consulted to manage selected antiobiotic: Vancomycin Type of Consult: Follow-up Suspected Infection: Skin/Soft tissue Prior Doses of Antibiotics Received/Current Regimen: Medications Vancomycin HCl 1,250 mg/ (Sodium Chloride) 275 mls @ 167 mls/hr IV Q8H CHRIS Discontinued Medications Vancomycin HCl (Vancomycin) 1,000 mg in 200 mls @ 200 mls/hr IV Q8H CHRIS Last Admin: 07/27/21 21:03 Dose: Infused Labs: Sodium 137 mmol/L (136-145) 07/27/21 06:45 Potassium 3.1 mmol/L (3.5-5.1) L 07/27/21 06:45 Chloride 103 mmol/L (98-107) 07/27/21 06:45 Carbon Dioxide 28.0 mmol/L (21.0-32.0) 07/27/21 06:45 Anion Gap 6 (5-15) 07/27/21 06:45 BUN 4 mg/dL (7-18) L 07/27/21 06:45 Creatinine 0.55 mg/dL (0.70-1.30) L 07/27/21 06:45 Est GFR (MDRD) Af Amer 218 mL/min (>60) 07/27/21 06:45 Est GFR (MDRD) Non-Af 180 mL/min (>60) 07/27/21 06:45 BUN/Creatinine Ratio 7.3 RATIO (10-20) L 07/27/21 06:45 Glucose 165 mg/dL (74-106) H 07/27/21 06:45 Vancomycin Trough 6.3 ug/mL (5.0-15.0) 07/27/21 19:00 Microbiology: Microbiology 07/27/21 09:11 Tissue - Left Foot Gram Stain - Final 07/26/21 15:50 Wound Drainage - Aerobic & Anaerobic Swabs Gram Stain - Final 07/26/21 15:50 Wound Drainage - Aerobic & Anaerobic Swabs Wound Culture - Preliminary Streptococcus agalactiae (B) Weight used for dosin.3 kg Estimated Creatinine Clearance: 214 Goal Trough: 15-20 mcg/mL Pharmacy Plan for Drug Dosing: Vancomycin trough level of 6.3 was below target range. Partially explained by increase in renal clearance. Will increase dose to 1250mg q8h and re-draw a trough prior to 4th dose of the new regimen. Pharmacy Service will continue to monitor and adjust dosing as required. Follow-Up Labs: Trough Vancomycin Labs to be done on [date and time ordered]: 07/29/21 @[id number]
--- NOTE | 2021-07-27 23:33 | NURSING ---
Blood glucose completed by tasking RN. 278
[2021-07-28 01:21] LABS: Bedside Glucose 278 mg/dL (70-110)
[2021-07-28] MEDS: 0.9% Normal Saline 1,000 ML 125 ML IV ×3 (02:23→21:56)
[2021-07-28 02:29] VITALS: BP 135/92; PULSE 96; RESP 16; TEMP 37.2; O2SAT 94
[2021-07-28] MEDS: 0.9% Saline Lock 10 ML Syringe IV (07:01)
[2021-07-28 07:15] LABS: Bedside Glucose 265 mg/dL (70-110)
[2021-07-28 07:30] VITALS: O2SAT 97
[2021-07-28 07:32] LABS: Absolute Lymphocyte Count 2.84 X10^3/uL (0.83-4.51); Absolute Neutrophil Count 6.5 X10^3/uL (2.0-7.7); Basophil# 0.06 X10^3/uL; Basophil% 0.6 % (0-1); Eosinophil# 0.14 X10^3/uL; Eosinophils% 1.3 % (0-5); Hematocrit 32.1 % (40-54); Hemoglobin 11.2 g/dL (13.0-16.5); Lymphocyte # 2.84 X10^3/ul (0.83-4.51); Lymphocyte % 26.9 % (19-41); Mean Corp Hgb Conc 34.9 g/dL (32-36); Mean Corpuscular Hgb 28.9 pg (27.0-32.0); Mean Corpuscular Volume 82.9 fL (80-94); Monocyte# 0.99 X10^3/uL; Monocyte% 9.4 % (0-10); NRBC Flagged by Analyzer 0 % (0-5); Neutrophil # 6.49 X10^3/uL (2.7-7.7); Neutrophil % 61.5 % (47-70); Platelet Count 310 K/mm3 (150-450); RBC Distribution Width CV 11.9 % (11.6-14.6); RBC Distribution Width SD 35.5 fl (35.1-43.9); Red Blood Count 3.87 M/mm3 (4.6-6.2); White Blood Count 10.6 K/mm3 (4.4-11.0)
[2021-07-28 08:04] LABS: Anion Gap 6 (5-15); BUN 4 mg/dL (7-18); BUN/Creat Ratio 6.9 RATIO (10-20); Calcium,Total 8.5 mg/dL (8.5-10.1); Chloride 103 mmol/L (98-107); Creatinine, Serum 0.58 mg/dL (0.70-1.30); EST Glomerular Filtration Rate 170 mL/min (>60); Est Glom Filt Rate - Afr Amer 206 mL/min (>60); Estimated Creatinine Clearance 202.81 ml/min; Glucose 252 mg/dL (74-106); Potassium 3.1 mmol/L (3.5-5.1); Sodium Level 138 mmol/L (136-145)
[2021-07-28] MEDS: Insulin Lispro 100 UNIT/ML INSULN.PEN SC ×3 (08:59→17:01)
[2021-07-28] MEDS: Insulin Lispro 100 UNIT/ML INSULN.PEN 15 UNIT SC ×2 (08:59→11:09)
[2021-07-28 09:03] VITALS: BP 136/92; PULSE 80; RESP 16; TEMP 36.8; O2SAT 98
--- NOTE | 2021-07-28 10:57 | PN_ITS ---
Subjective Subjective This 35-year-old male with uncontrolled diabetes was seen bedside postoperative day #1 left foot foreign body excision with additional I&D and debridement. He denies fever, chill, nausea, vomiting, shortness of breath, chest pain or calf pain. He does report fatigue and cough. He denies foot pain but is noted he is neuropathic. He reports his kidneys are painful, and this is causing him pain. Objective Data Objective Data Vital Signs: Vital Signs Temp Pulse Resp BP Pulse Ox 98.2 F 80 16 136/92 H 98 07/28/21 09:03 07/28/21 09:03 07/28/21 09:03 07/28/21 09:03 07/28/21 09:03 Oxygen Delivery Method Room Air Weight: 82.3 kg Body Mass Index (BMI) 23.9 Intake & Output: Intake and Output for Last 24 Hours 07/26/21 07/27/21 07/28/21 23:59 23:59 23:59 Intake Total 1640 / 1640 4079.59 / 4879.59 2372.92 / 2372.92 Output Total 3200 / 3200 Balance 1640 / 1640 4079.59 / 2679.59 -827.08 / -827.08 Lab / Micro Data Result Diagrams: 07/28/21 06:52 07/28/21 06:52 Labs: Laboratory Results - last 24 hr 07/27/21 09:11: S.aureus Protein A PCR POSITIVE H, MRSA (PCR) POSITIVE H 07/27/21 11:03: POC Glucose 181 H 07/27/21 16:20: POC Glucose 309 H 07/27/21 19:00: Vancomycin Trough 6.3 07/27/21 21:34: POC Glucose 278 H 07/28/21 06:52: WBC 10.6, RBC 3.87 L, Hgb 11.2 L, Hct 32.1 L, MCV 82.9, MCH 28.9, MCHC 34.9, RDW Std Deviation 35.5, RDW Coeff of James 11.9, Plt Count 310, MPV 11.0, Immature Gran % (Auto) 0.300, Neut % (Auto) 61.5, Lymph % (Auto) 26.9, [place] % (Auto) 9.4, Eos % (Auto) 1.3, Baso % (Auto) 0.6, Absolute Neuts (auto) 6.5, Absolute Lymphs (auto) 2.84, Nucleated RBC % 0 07/28/21 06:52: Sodium 138, Potassium 3.1 L, Chloride 103, Carbon Dioxide 29.0, Anion Gap 6, BUN 4 L, Creatinine 0.58 L, Estim Creat Clear Calc 202.81, Est GFR (MDRD) Af Amer 206, Est GFR (MDRD) Non-Af 170, BUN/Creatinine Ratio 6.9 L, Glucose 252 H, Calcium 8.5 07/28/21 06:59: POC Glucose 265 H Micro: Microbiology 07/27/21 09:11 Tissue - Left Foot Gram Stain - Final 07/27/21 09:11 Tissue - Left Foot Wound Culture - Preliminary Streptococcus agalactiae (B) Staphylococcus aureus 07/26/21 15:30 Blood Culture (Wb) - Anticubital Left Blood Culture - Preliminary No growth in 48 hours. 07/26/21 15:35 Blood Culture (Wb) - Right Hand Blood Culture - Preliminary No growth in 48 hours. 07/26/21 15:50 Wound Drainage - Aerobic & Anaerobic Swabs Gram Stain - Final 07/26/21 15:50 Wound Drainage - Aerobic & Anaerobic Swabs Wound Culture - Preliminary Streptococcus agalactiae (B) Staphylococcus aureus Radiography Diagnostic Testing: Radiology Impression Foot X-Ray 07/27/21 08:15 IMPRESSION: First fluoroscopic image demonstrates radiopaque foreign body in the lateral soft tissues. Second fluoroscopic image and does not demonstrate foreign body. Electronically Signed: Gerald Flores MD at 23:51 EDT Tel , Service support , Physical Exam Const alert and oriented x3 General Appearance: cooperative HEENT normocephalic Extremity Extremity Narrative: No calf tenderness; negative Webster sign bilateral Palpable DP pulse left Capillary fill time is brisk to all digits of left foot Muscle wasting noted General Extremity: edema and no tenderness to palpation of joints or extremities; Negative for cyanosis Skin Skin Narrative: There is no longer retained metallic foreign body. There is an open wound to the plantar foot with incision and drainage that measure approximately 4 x 7 cm with a depth of over 2.5 cm. There is only hematogenous drainage on expression. Some of the posterior margins appear devitalized moreno andrea there is no marc necrosis. There is no odor. There is exposed deep healthy appearing plantar fascial band. His adjacent erythema has reduced intensity however is still a moderate degree. There is no bogginess, fluctuance, or new blister formation General Skin Exam: Negative for erythema Neuro Neuro Narrative: lack of normal epicritic sensation via light touch is consi stent with neuropathy status Psych cooperative and affect normal Assessment & Plan Assessment/Plan (1) Foreign body in left foot: (2) Abscess: PLAN: I reviewed and discussed his case. He is afebrile and his vital signs remained stable. His white blood cell count is decreased to 10.6. He is clinically starting to demonstrate some resolution of local signs of infection however his prognosis is still guarded. A new dressing of Betadine wet-to-dry gauze were applied. I will also order Dakin solution for his next dressing change. IV vancomycin and Zosyn was started for broad-spectrum purposes. Cultures demonstrate MRSA positive and strep. Post irrigation and debridement cultures were obtained in surgery yesterday and these are still pending. Blood cultures are negative so far. To maintain a nonweightbearing status to left lower extremity. His uncontrolled diabetes is noted with a hemoglobin A1c of 13.5%. We discussed the need for a balanced diet, exercise, and medication regimen to optimize healing and prevent other medical conditions. He saw the strategy planning consultant several years ago at the [facility] and does not want to meet with another one. Is noted he has not been taking any medication at home. He has recently lost 60 pounds, working 2 jobs and he thought this would be enough. Medical management per hospitalist service. Podiatry team will continue to follow him while in-house. Please do not hesitate to call if you have any questions. Umu London DPM, [facility] [phone]
[2021-07-28 11:14] VITALS: BP 124/85; PULSE 88; RESP 16; TEMP 36.9; O2SAT 98
[2021-07-28 11:20] LABS: Bedside Glucose 234 mg/dL (70-110)
--- NOTE | 2021-07-28 12:17 | PN.HOSP_ITS ---
Documented by User: Mateusz FRANCISCO 07/28/21 12:28 Subjective Subjective Patient is a 35-year-old male lying in bed, alert and orient x3. Patient has no specific complaints although is preoccupied over his lower left extremity injury. Denies development of any new symptoms overnight and does not appear to be in acute distress. Objective Data Objective Data Vital Signs: Vital Signs Temp Pulse Resp BP Pulse Ox 98.4 F 88 16 124/85 H 98 07/28/21 11:14 07/28/21 11:14 07/28/21 11:14 07/28/21 11:14 07/28/21 11:14 Oxygen Delivery Method Room Air Weight: 181 lb 7.047 oz Body Mass Index (BMI) 23.9 Intake & Output: Intake and Output for Last 24 Hours 07/26/21 07/27/21 07/28/21 23:59 23:59 23:59 Intake Total 1640 / 1640 4079.59 / 4879.59 3393.75 / 3393.75 Output Total 3200 / 3200 Balance 1640 / 1640 4079.59 / 2679.59 193.75 / 193.75 Lab / Micro Data Result Diagrams: 07/28/21 06:52 07/28/21 06:52 Labs: Laboratory Results - last 24 hr 07/27/21 09:11: MRSA (PCR) POSITIVE H 07/27/21 11:03: POC Glucose 181 H 07/27/21 16:20: POC Glucose 309 H 07/27/21 19:00: Vancomycin Trough 6.3 07/27/21 21:34: POC Glucose 278 H 07/28/21 06:52: WBC 10.6, RBC 3.87 L, Hgb 11.2 L, Hct 32.1 L, MCV 82.9, MCH 28.9, MCHC 34.9, RDW Std Deviation 35.5, RDW Coeff of James 11.9, Plt Count 310, MPV 11.0, Immature Gran % (Auto) 0.300, Neut % (Auto) 61.5, Lymph % (Auto) 26.9, [place] % (Auto) 9.4, Eos % (Auto) 1.3, Baso % (Auto) 0.6, Absolute Neuts (auto) 6.5, Absolute Lymphs (auto) 2.84, Nucleated RBC % 0 07/28/21 06:52: Sodium 138, Potassium 3.1 L, Chloride 103, Carbon Dioxide 29.0, Anion Gap 6, BUN 4 L, Creatinine 0.58 L, Estim Creat Clear Calc 202.81, Est GFR (MDRD) Af Amer 206, Est GFR (MDRD) Non-Af 170, BUN/Creatinine Ratio 6.9 L, Glucose 252 H, Calcium 8.5 07/28/21 06:59: POC Glucose 265 H 07/28/21 11:03: POC Glucose 234 H Micro: Microbiology 07/27/21 09:11 Tissue - Left Foot Gram Stain - Final 07/27/21 09:11 Tissue - Left Foot Wound Culture - Preliminary Streptococcus agalactiae (B) Staphylococcus aureus 07/26/21 15:30 Blood Culture (Wb) - Anticubital Left Blood Culture - Preliminary No growth in 48 hours. 07/26/21 15:35 Blood Culture (Wb) - Right Hand Blood Culture - Preliminary No growth in 48 hours. 07/26/21 15:50 Wound Drainage - Aerobic & Anaerobic Swabs Gram Stain - Final 07/26/21 15:50 Wound Drainage - Aerobic & Anaerobic Swabs Wound Culture - Preliminary Streptococcus agalactiae (B) Staphylococcus aureus Radiography Diagnostic Testing: Radiology Impression Foot X-Ray 07/27/21 08:15 IMPRESSION: First fluoroscopic image demonstrates radiopaque foreign body in the lateral soft tissues. Second fluoroscopic image and does not demonstrate foreign body. Electronically Signed: Gerald Flores MD at 23:51 EDT Tel , Service support , Physical Exam Const alert, oriented x3 and no apparent distress HEENT head/scalp atraumatic, moist oral mucous membranes and oropharynx normal Head and Scalp: normocephalic Eyes PERRL, EOMs intact bilaterally and conjunctivae normal Neck no lymphadenopathy, supple and no JVD Resp normal respiratory effort, no retractions, no use of accessory muscles and clear to auscultation bilaterally Cardio regular rate, regular rhythm, no murmurs and no JVD GI normal to inspection, nondistended, normoactive bowel sounds, soft to palpation and non-tender Extremity Extremity Narrative: Lower left extremity wrapped in appropriate bandaging per podiatry. No pain on palpation of the lower left extremity. Skin no rashes or lesions noted, no wounds, skin turgor normal and no jaundice Neuro CN's II-XII intact bilaterally Psych affect normal Assessment & Plan Assessment/Plan (1) Asymptomatic COVID-19 virus infection: (2) Foreign body in left foot: (3) Cellulitis: QUALIFIERS: Laterality: right Site of cellulitis of extremity: upper extremity (4) Abscess: (5) Acute hyperglycemia: PLAN: Day 2 Discharge planning: Current plan is for patient to discharge home, PT/OT eval ordered in case management is following. 1) lower left extremity cellulitis/abscess/foreign body/diabetic foot ulcer Status post foreign body removal of the left lower extremity which revealed a metal shard in the left foot. Podiatry following. Blood cultures did not demonstrate any growth. Wound cultures grew MRSA and strep agalactiae preliminarily. Plan; remain admitted overnight for monitoring, continue vancomycin and Zosyn, Tylenol as needed, Zofran as needed, albuterol as needed, oxycodone as needed, wound management per podiatry. 2) acute hyperglycemia in the setting of uncontrolled diabetes mellitus type 2 POC glucose currently 234. Hemoglobin A1c currently 13.5. Plan; continue Accu- Cheks with sliding scale insulin, basal insulin 20 units at bedtime ordered. 3) asymptomatic COVID-19 infection Denies shortness of breath, fever, chills, sputum production, N/V/D. Vital signs stable and patient is afebrile. Currently satting 97% on room air. CBC does not demonstrate a leukocytosis. Plan; continue to monitor. DVT prophylaxis - low risk, not indicated Patient seen by Mateusz Galvez PA-C, under the supervision of Dr. Carreno. Documented by User: Dr. Vishal Carreno MD 07/28/21 13:28 Subjective Subjective No fever. Objective Data Lab / Micro Data Result Diagrams: 07/28/21 06:52 07/28/21 06:52 Physical Exam Narrative General: Alert, Oriented x3, Cooperative HEENT: Atraumatic, PERRLA, EOMI, Normocephalic Oral: No Gingival or Mucosal Lesions/ Ulcerations Neck: Supple, No JVD, Negative Carotid Bruits Lungs: Air entry diminished in bilateral lung bases. No crepitation/rhonchi Cardiovascular: Regular rate, Regular Rhythm, Normal S1, Normal S2, No murmurs Abdomen: Bowel Sounds Present, Soft, Non Tender, Non-Distended : No renal angle tenderness. No suprapubic tenderness. Extremities: No edema, Capillary Refill Less than 3 Seconds Skin: Status post surgery. Dressing is intact and dry with Mehdi wrap bandage on. Musculoskeletal: No Tenderness to Palpation of Joints or Extremities Neurological: Cranial nerves II-XII grossly intact, DTR 2+/4 and Symmetrical, Neuro grossly intact Psych/Mental Status: Normal Affect, Appropriate. Assessment & Plan Assessment/Plan (1) Foreign body in left foot: (2) Cellulitis: QUALIFIERS: Laterality: right Site of cellulitis of extremity: upper extremity PLAN: This patient was seen in conjunction with NOLAN Valderrama. I have independently interviewed and examined the patient and reviewed pertinent history, examination findings, laboratory and plan of management. I have reviewed the note and agree with the documented findings with the few additional points. In brief, patient is admitted for left Charcot foot infection with bulla with serosanguineous discharge plantar aspect of left arm cough with surrounding cellulitis. Patient was taken to the OR today. Was found to have abscess. Removal of foreign body and incision and drainage was done. MRSA PCR nasal screen positive. Patient on vancomycin and Zosyn. Preliminary culture shows MRSA positive and strep. Diabetes mellitus type 2 with diabetic foot: Patient has baseline neuropathy. A1c 13.5. Glucose uncontrolled at baseline. Blood is still high to 235-300. Increase the started on lispro insulin 20 units subcutaneous 3 times daily and Lantus 30 mg at bedtime daily and 20 units at breakfast. Titrate according to the Glucocheck's. Found asymptomatic COVID-19 on PCR. Patient moved to third floor. Lovenox 40 mg subcu daily. I have discussed my assessment with NOLAN Valderrama and orders have been reviewed. Charges/Coding Visit Charges Inpatient E&M: 93672 Subs Hosp L2
[2021-07-28] MEDS: Enoxaparin 40 MG/0.4 ML Syringe SC (14:27)
[2021-07-28] MEDS: DAKIN'S SOL HALF STRENGTH (=0.25%) 1 APPLIC TOPICAL ×2 (14:35→22:17)
[2021-07-28 14:37] VITALS: BP 140/98; PULSE 85; RESP 16; TEMP 37.5; O2SAT 97
[2021-07-28 16:36] LABS: Bedside Glucose 160 mg/dL (70-110)
[2021-07-28] MEDS: Insulin Lispro 100 UNIT/ML INSULN.PEN 20 UNIT SC (17:01)
[2021-07-28 22:09] VITALS: BP 156/93; PULSE 94; RESP 17; TEMP 37.5; O2SAT 96
[2021-07-28 22:41] LABS: Bedside Glucose 109 mg/dL (70-110)
[2021-07-29 03:53] VITALS: BP 156/97; PULSE 76; RESP 16; TEMP 37.6; O2SAT 95
[2021-07-29 04:13] LABS: Anion Gap 6 (5-15); BUN 7 mg/dL (7-18); BUN/Creat Ratio 12.1 RATIO (10-20); Calcium,Total 8.4 mg/dL (8.5-10.1); Chloride 101 mmol/L (98-107); Creatinine, Serum 0.58 mg/dL (0.70-1.30); EST Glomerular Filtration Rate 170 mL/min (>60); Est Glom Filt Rate - Afr Amer 206 mL/min (>60); Estimated Creatinine Clearance 202.81 ml/min; Glucose 305 mg/dL (74-106); Potassium 3.2 mmol/L (3.5-5.1); Sodium Level 138 mmol/L (136-145)
[2021-07-29 04:15] LABS: Vancomycin, Trough Level 13.1 ug/mL (5.0-15.0)
[2021-07-29 04:31] LABS: Absolute Lymphocyte Count 2.81 X10^3/uL (0.83-4.51); Absolute Neutrophil Count 5.4 X10^3/uL (2.0-7.7); Basophil# 0.06 X10^3/uL; Basophil% 0.6 % (0-1); Eosinophil# 0.16 X10^3/uL; Eosinophils% 1.7 % (0-5); Hemoglobin 10.8 g/dL (13.0-16.5); Lymphocyte # 2.81 X10^3/ul (0.83-4.51); Lymphocyte % 30.2 % (19-41); Mean Corp Hgb Conc 33.8 g/dL (32-36); Mean Corpuscular Hgb 28.3 pg (27.0-32.0); Mean Corpuscular Volume 83.8 fL (80-94); Mean Platelet Vol. 10.8 fl (6.2-12.0); Monocyte# 0.83 X10^3/uL; Monocyte% 8.9 % (0-10); NRBC Flagged by Analyzer 0 % (0-5); Neutrophil % 58.2 % (47-70); Platelet Count 354 K/mm3 (150-450); RBC Distribution Width CV 11.8 % (11.6-14.6); RBC Distribution Width SD 35.8 fl (35.1-43.9); Red Blood Count 3.82 M/mm3 (4.6-6.2); White Blood Count 9.3 K/mm3 (4.4-11.0)
--- NOTE | 2021-07-29 04:52 | PHA.PHARE_ITS ---
Consult Pharmacy has been consulted to manage selected antiobiotic: Vancomycin Type of Consult: Follow-up Suspected Infection: Skin/Soft tissue Prior Doses of Antibiotics Received/Current Regimen: Medications Vancomycin HCl 1,250 mg/ (Sodium Chloride) 275 mls @ 167 mls/hr IV Q8H CHRIS Last Admin: 07/29/21 03:56 Dose: 167 mls/hr Labs: Sodium 138 mmol/L (136-145) 07/29/21 03:32 Potassium 3.2 mmol/L (3.5-5.1) L 07/29/21 03:32 Chloride 101 mmol/L (98-107) 07/29/21 03:32 Carbon Dioxide 31.0 mmol/L (21.0-32.0) 07/29/21 03:32 Anion Gap 6 (5-15) 07/29/21 03:32 BUN 7 mg/dL (7-18) 07/29/21 03:32 Creatinine 0.58 mg/dL (0.70-1.30) L 07/29/21 03:32 Est GFR (MDRD) Af Amer 206 mL/min (>60) 07/29/21 03:32 Est GFR (MDRD) Non-Af 170 mL/min (>60) 07/29/21 03:32 BUN/Creatinine Ratio 12.1 RATIO (10-20) 07/29/21 03:32 Glucose 305 mg/dL (74-106) H 07/29/21 03:32 Vancomycin Trough 13.1 ug/mL (5.0-15.0) 07/29/21 03:32 Microbiology: Microbiology 07/27/21 09:11 Tissue - Left Foot Gram Stain - Final 07/27/21 09:11 Tissue - Left Foot Wound Culture - Preliminary Streptococcus agalactiae (B) Staphylococcus aureus 07/26/21 15:30 Blood Culture (Wb) - Anticubital Left Blood Culture - Preliminary No growth in 48 hours. 07/26/21 15:35 Blood Culture (Wb) - Right Hand Blood Culture - Preliminary No growth in 48 hours. 07/26/21 15:50 Wound Drainage - Aerobic & Anaerobic Swabs Gram Stain - Final 07/26/21 15:50 Wound Drainage - Aerobic & Anaerobic Swabs Wound Culture - Preliminary Streptococcus agalactiae (B) Staphylococcus aureus Weight used for dosin.3 kg Estimated Creatinine Clearance: 202 Goal Trough: 15-20 mcg/mL Pharmacy Plan for Drug Dosing: Vancomycin trough level of 13.1 was a little below target range. With dose increase the levels are steadily rising, so will continue same dosing. Will re- draw a trough in four doses to monitor. Pharmacy Service will continue to monitor and adjust dosing as required. Follow-Up Labs: Trough Vancomycin Labs to be done on [date and time ordered]: 07/30/21 @4324
[2021-07-29 06:55] VITALS: O2SAT 95
[2021-07-29 08:22] VITALS: BP 157/96; PULSE 73; RESP 18; TEMP 37.3; O2SAT 97
[2021-07-29] MEDS: Enoxaparin 40 MG/0.4 ML Syringe SC (08:29)
[2021-07-29] MEDS: Insulin Lispro 100 UNIT/ML INSULN.PEN 20 UNIT SC ×2 (08:30→11:18)
[2021-07-29] MEDS: Potassium Chloride Oral Tablet 20 MEQ 40 MEQ PO (08:30)
[2021-07-29] MEDS: Insulin Lispro 100 UNIT/ML INSULN.PEN SC ×2 (08:31→11:19)
[2021-07-29] MEDS: 0.9% Normal Saline 1,000 ML 125 ML IV (08:32)
[2021-07-29] MEDS: DAKIN'S SOL HALF STRENGTH (=0.25%) 1 APPLIC TOPICAL (09:30)
--- NOTE | 2021-07-29 09:44 | WOUNDNOTE ---
wound photo: left plantar foot
[2021-07-29 11:00] LABS: Bedside Glucose 337 mg/dL (70-110)
--- NOTE | 2021-07-29 11:06 | PCM.DC ---
Discharge Instructions Activity Weight Bearing Status: No weight bearing (No weightbearing left foot.) Keep extremity elevated above heart level: Left Leg (Keep left foot elevated as much as possible.) Dressing / Incision Call your doctor if your incision/area has: Continuous Slow Oozing, Increased Pain/ Swelling and Foul Smelling Discharge Call your doctor if you observe: Fever of 101 or Higher, Coldness, Increased Pain, Shortness of breath, Chest pain, Calf discomfort and Uncontrolled pain Change Dressing in: 1 day (Change left foot dressing daily - cleanse with dakin's solution. Apply moistened (with Dakin's solution) gauze to wound site, apply overlying dry gauze, apply gauze roll and mehdi bandage - change daily.) Follow Up Care Please Follow Up With: Umu London DPM When: [facility] at [facility], [address] [place] [address], [place] [address]. Office number [phone] - call to make appointment. Follow up sooner if needed. Test Results: Test results from this visit will be discussed in further detail at your follow-up appointment, if applicable. Discharge Plan Admission Admit Date/Time: 07/26/21 17:15 Attending Provider: Lucia Gore Primary Care Provider: Leanne Antonio Consulting Providers: Umu London ; Nemesio Montalvo Instructions Additional Instructions / Restrictions: Maintain nonweightbearing to the left foot. Use assistive device. Change dressing daily with Dakin wet-to-dry gauze, abdominal pad, Kerlix, Mehdi wrap. To elevate limb at rest. Discharge Orders/Prescriptions Prescriptions: No Action NK RF: 0 Referrals / Follow Up: Leanne Antonio MD [Primary Care Provider] - Umu London DPM [STAFF PHYSICIAN] - In 1 Week (wound center; call [phone]. If can't got on wound center schedule, follow up at [facility]; [phone].)
--- NOTE | 2021-07-29 11:14 | PCM.PROGNOTE ---
Subjective Subjective Patient was seen this morning for follow up on left foot. He relates he is doing well, he is asking when he can go home. Temp is 99.1 this morning. He has no new complaints. No complaints of chills, nausea or vomiting. Foot is doing better. Objective Data Objective Data Vital Signs: Vital Signs Temp Pulse Resp BP Pulse Ox 99.1 F 73 18 157/96 H 97 07/29/21 08:22 07/29/21 08:22 07/29/21 08:22 07/29/21 08:22 07/29/21 08:22 Oxygen Delivery Method Room Air Weight: 82.3 kg Body Mass Index (BMI) 23.9 Intake & Output: Intake and Output for Last 24 Hours 07/27/21 07/28/21 07/29/21 23:59 23:59 23:59 Intake Total 4079.59 / 4879.59 5766.67 / 5766.67 1175.00 / 1175.00 Output Total 3200 / 3200 1100 / 1100 Balance 4079.59 / 2679.59 2566.67 / 2566.67 75.00 / 75.00 Lab / Micro Data Result Diagrams: 07/29/21 03:32 07/29/21 03:32 Labs: Laboratory Results - last 24 hr 07/28/21 11:03: POC Glucose 234 H 07/28/21 16:22: POC Glucose 160 H 07/28/21 22:07: POC Glucose 109 07/29/21 03:32: Vancomycin Trough 13.1 07/29/21 03:32: WBC 9.3, RBC 3.82 L, Hgb 10.8 L, Hct 32.0 L, MCV 83.8, MCH 28.3, MCHC 33.8, RDW Std Deviation 35.8, RDW Coeff of James 11.8, Plt Count 354, MPV 10.8, Immature Gran % (Auto) 0.400, Neut % (Auto) 58.2, Lymph % (Auto) 30.2, [place] % (Auto) 8.9, Eos % (Auto) 1.7, Baso % (Auto) 0.6, Absolute Neuts (auto) 5.4, Absolute Lymphs (auto) 2.81, Nucleated RBC % 0 07/29/21 03:32: Sodium 138, Potassium 3.2 L, Chloride 101, Carbon Dioxide 31.0, Anion Gap 6, BUN 7, Creatinine 0.58 L, Estim Creat Clear Calc 202.81, Est GFR (MDRD) Af Amer 206, Est GFR (MDRD) Non-Af 170, BUN/Creatinine Ratio 12.1, Glucose 305 H, Calcium 8.4 L 07/29/21 08:17: POC Glucose 337 H Micro: Microbiology 07/26/21 15:50 Wound Drainage - Aerobic & Anaerobic Swabs Gram Stain - Final 07/26/21 15:50 Wound Drainage - Aerobic & Anaerobic Swabs Wound Culture - Final Streptococcus agalactiae (B) Meth. resistant Staph. aureus 07/26/21 15:50 Wound Drainage - Aerobic & Anaerobic Swabs Anaerobic Culture - Final No anaerobic bacteria isolated. 07/27/21 09:11 Tissue - Left Foot Gram Stain - Final 07/27/21 09:11 Tissue - Left Foot Wound Culture - Preliminary Streptococcus agalactiae (B) Staphylococcus aureus 07/27/21 09:11 Tissue - Left Foot Anaerobic Culture - Preliminary Checking for anaerobes, further studies to follow. 07/26/21 15:30 Blood Culture (Wb) - Anticubital Left Blood Culture - Preliminary No growth in 48 hours. 07/26/21 15:35 Blood Culture (Wb) - Right Hand Blood Culture - Preliminary No growth in 48 hours. Physical Exam Const alert and oriented x3 General Appearance: cooperative HEENT normocephalic Extremity Extremity Narrative: No calf tenderness; negative Webster sign bilateral Palpable DP pulse left, no evidence of ischemia to the left foot. Capillary fill time is brisk to all digits of left foot General Extremity: no tenderness to palpation of joints or extremities; Negative for cyanosis Skin Skin Narrative: Left foot: There is an open wound to the plantar foot with incision and drainage that measure approximately 4 x 7 cm with a depth of over 2.5 cm, some of the posterior margins appear devitalized however there is no marc necrosis, there is no odor, there is exposed deep healthy appearing plantar fascial band, cellulitis/erythema significantly improved, no streaking, no new blister formation, no visible abscess. General Skin Exam: erythema Neuro Neuro Narrative: lack of normal epicritic sensation via light touch is consistent with neuropathy status, left foot. Psych cooperative and affect normal Assessment & Plan Assessment/Plan (1) Foreign body in left foot: (2) Abscess: PLAN: I reviewed and discussed his case. Significant improvement noted to the left foot. A new dressing of Dakin's solution wet-to-dry gauze has been applied - change BID while here, then change daily once he goes home. Reviewed culture results - Dr. Montalvo on consult, spoke with Dr. Montalvo who is planning to switch patient to oral antibiotics once he is discharged. To maintain a nonweightbearing status to left lower extremity. He is not cleared to return to work. His uncontrolled diabetes is noted with a hemoglobin A1c of 13.5%. He relates he does not like to go to doctors, and he relates he has a very bad diet. We discussed the need for proper blood sugar control to optimize wound healing, and foot/ankle health. He is to follow up with his PCP/diabetes physician once discharged to discuss how he can get better blood sugar control. Medical management per hospitalist service. Podiatry team will continue to follow him while in-house. Please do not hesitate to call if you have any questions.
[2021-07-29] MEDS: oxyCODONE 5 MG Tablet PO (11:17)
--- NOTE | 2021-07-29 11:59 | PCM.DC ---
Discharge Instructions Activity Weight Bearing Status: No weight bearing (No weightbearing left foot.) Keep extremity elevated above heart level: Left Leg (Keep left foot elevated as much as possible.) Dressing / Incision Call your doctor if your incision/area has: Continuous Slow Oozing, Increased Pain/ Swelling and Foul Smelling Discharge Call your doctor if you observe: Fever of 101 or Higher, Coldness, Increased Pain, Shortness of breath, Chest pain, Calf discomfort and Uncontrolled pain Follow Up Care Please Follow Up With: Umu London DPM Test Results: Test results from this visit will be discussed in further detail at your follow-up appointment, if applicable. Discharge Plan Admission Admit Date/Time: 07/26/21 17:15 Attending Provider: Lucia Gore Primary Care Provider: Leanne Antonio Consulting Providers: Umu London ; Nemesio Montalvo Instructions Additional Instructions / Restrictions: Maintain nonweightbearing to the left foot. Use assistive device. Change dressing daily with Dakin wet-to-dry gauze, abdominal pad, Kerlix, Mehdi wrap. To elevate limb at rest. Discharge Orders/Prescriptions Prescriptions: New Dakin's Solution 0.25 % solution 1 applic topical DAILY Qty: 473 RF: 0 Lantus U-100 Insulin 100 unit/mL solution 20 unit subcut DAILY Qty: 20 RF: 0 Lantus U-100 Insulin 100 unit/mL solution 25 unit subcut QHS Qty: 20 RF: 0 Referrals / Follow Up: Leanne Antonio MD [Primary Care Provider] - Within 2 Weeks Umu London DPM [STAFF PHYSICIAN] - In 1 Week (wound center; call [phone]. If can't got on wound center schedule, follow up at [facility]; [phone].) Disposition Disposition (needs filled in before D/C Order can be placed): Home, Self Care
[2021-07-29 12:49] VITALS: O2SAT 97
--- NOTE | 2021-07-29 12:58 | PCM.CONS.GEN ---
Assessment & Plan Assessment/Plan (1) Asymptomatic COVID-19 virus infection: (2) Diabetic foot infection: PLAN: Foot cx with MRSA and GBS. On vanc/ceftriaxone. Now s/p I&D by Dr. London 07/26/21. Recommend isolation until 08/05/21. Recommend he and family get vaccinated. Ok for home with one week po bactrim and augmentin. ID followup prn. Thank you, d/w primary team and Dr. Quigley (3) Foreign body in left foot: HPI Consult Data Date of Consult: 07/29/21 HPI Narrative HPI Narrative: NORBERTO CAMARILLO, is a 35 M who presented 07/26 with about 4-5 days progressive pain, redness, swelling in L foot. Found some metal in his sock. Sx worsened, no fever, no n/v/d. Some loss of appetite. No sick contacts. No covid vaccine. Lives with girlfriend and her child who have been healthy. Came to ED, found to have abscess with foreign body and mild covid. Taken to OR 07/[address] London for I&D. Feeling better. Full ROS performed and neg except as noted above. [facility] Medical History Asthma Current use of insulin Diabetes Home Medications insulin glargine [Lantus U-100 Insulin] 20 unit SUBCUT DAILY #20 ml 07/29/21 [Rx Last Taken Unknown] insulin glargine [Lantus U-100 Insulin] 25 unit SUBCUT QHS #20 ml 07/29/21 [Rx Last Taken Unknown] sodium hypochlorite [Dakin's Solution] 1 applic TOPICAL DAILY #473 ml 07/29/21 [Rx Last Taken Unknown] Allergy/AdvReac Type Severity Reaction Status Date / Time No Known Allergies Allergy Verified 05/24/19 03:02 Family History (Updated 07/26/21 @ 18:03 by Mateusz FRANCISCO) Father Diabetes Mother Diabetes Social History (Updated 07/26/21 @ 18:04 by Mateusz FRANCISCO) household members: significant other Smoking Status: Never smoker alcohol intake: current alcohol intake frequency: a few times a week Physical Exam Const alert, oriented x3 and no apparent distress General Appearance: cooperative Exam Limitations: no limitations HEENT normocephalic and head/scalp atraumatic Eyes PERRL and EOMs intact bilaterally Neck supple and No nodes Resp normal air movement and clear to auscultation bilaterally Cardio regular rate and regular rhythm GI normal to inspection, nondistended, normoactive bowel sounds Extremity no clubbing, cyanosis or edema Skin Skin Narrative: Reviewed photo L foot wound Lab / Micro Data Result Diagrams: 07/29/21 03:32 07/29/21 03:32 Labs: Laboratory Results - last 24 hr 07/28/21 16:22: POC Glucose 160 H 07/28/21 22:07: POC Glucose 109 07/29/21 03:32: Vancomycin Trough 13.1 07/29/21 03:32: WBC 9.3, RBC 3.82 L, Hgb 10.8 L, Hct 32.0 L, MCV 83.8, MCH 28.3, MCHC 33.8, RDW Std Deviation 35.8, RDW Coeff of James 11.8, Plt Count 354, MPV 10.8, Immature Gran % (Auto) 0.400, Neut % (Auto) 58.2, Lymph % (Auto) 30.2, [place] % (Auto) 8.9, Eos % (Auto) 1.7, Baso % (Auto) 0.6, Absolute Neuts (auto) 5.4, Absolute Lymphs (auto) 2.81, Nucleated RBC % 0 07/29/21 03:32: Sodium 138, Potassium 3.2 L, Chloride 101, Carbon Dioxide 31.0, Anion Gap 6, BUN 7, Creatinine 0.58 L, Estim Creat Clear Calc 202.81, Est GFR (MDRD) Af Amer 206, Est GFR (MDRD) Non-Af 170, BUN/Creatinine Ratio 12.1, Glucose 305 H, Calcium 8.4 L 07/29/21 08:17: POC Glucose 337 H Micro: Microbiology 07/26/21 15:50 Wound Drainage - Aerobic & Anaerobic Swabs Gram Stain - Final 07/26/21 15:50 Wound Drainage - Aerobic & Anaerobic Swabs Wound Culture - Final Streptococcus agalactiae (B) Meth. resistant Staph. aureus 07/26/21 15:50 Wound Drainage - Aerobic & Anaerobic Swabs Anaerobic Culture - Final No anaerobic bacteria isolated. 07/27/21 09:11 Tissue - Left Foot Gram Stain - Final 07/27/21 09:11 Tissue - Left Foot Wound Culture - Preliminary Streptococcus agalactiae (B) Staphylococcus aureus 07/27/21 09:11 Tissue - Left Foot Anaerobic Culture - Preliminary Checking for anaerobes, further studies to follow. 07/26/21 15:30 Blood Culture (Wb) - Anticubital Left Blood Culture - Preliminary No growth in 48 hours. 07/26/21 15:35 Blood Culture (Wb) - Right Hand Blood Culture - Preliminary No growth in 48 hours.
--- NOTE | 2021-07-29 13:57 | PCM.DC.SUM ---
Documented by User: Mateusz FRANCISCO 07/29/21 14:15 Providers Date of Admission: 07/26/21 Primary Care Physician: Dr. Leanne Antonio MD Consultations 07/26/21 17:54 Consult: Onc/Wound/museum exhibit designer Routine Comment: 07/26/21 19:39 Consult: Podiatry Routine Consulting Provider: Umu London Reason for Consult: Left foot infection EMERGENT Consult: No MD Notified: Yes Date Notified: 07/26/21 Time Notified: 19:39 Method of Notification: Verbal Comments:: seen in ed 07/28/21 17:26 Consult: Infectious Disease Routine Consulting Provider: Nemesio Montalvo Reason for Consult: Diabetic foot abscess. Status post incision and drainage EMERGENT Consult: No MD Notified: Yes Date Notified: 07/29/21 Time Notified: 09:33 Method of Notification: Text Reason For Visit: LEFT DIABETIC FOOT Diagnosis Discharge Diagnosis (1) Asymptomatic COVID-19 virus infection: Status: Acute Code(s): U07.1 - COVID-19 (2) Diabetic foot infection: Status: Acute Code(s): E11.628 - Type 2 diabetes mellitus with other skin complications; L08.9 - Local infection of the skin and subcutaneous tissue, unspecified (3) Foreign body in left foot: Status: Acute Code(s): S90.852A - Superficial foreign body, left foot, initial encounter Medications at Discharge Home Medications amoxicillin-pot clavulanate [Augmentin] 1 tab PO Q12H #14 tab 07/29/21 insulin glargine [Lantus U-100 Insulin] 20 unit SUBCUT DAILY #20 ml 07/29/21 insulin glargine [Lantus U-100 Insulin] 25 unit SUBCUT QHS #20 ml 07/29/21 sodium hypochlorite [Dakin's Solution] 1 applic TOPICAL DAILY #473 ml 07/29/21 sulfamethoxazole-trimethoprim [Bactrim DS] 1 tab PO BID #14 tab 07/29/21 Hospital Course Summary of Care Provided Minutes Spent on Discharge: 35 Hospital Course: Disposition: Patient to be discharged home. 1) lower left extremity cellulitis/abscess/foreign body/diabetic foot ulcer Status post foreign body removal of the left lower extremity which revealed a metal shard in the left foot. ID and podiatry following. Blood cultures did not demonstrate any growth. Wound cultures grew MRSA and strep agalactiae preliminarily. Patient will be discharged home and is to follow-up with PCP and podiatry within the next 2 weeks. Patient discharged on 1 week prescription of oral Bactrim and Augmentin, per ID. No infectious disease follow-up needed. 2) acute hyperglycemia in the setting of uncontrolled diabetes mellitus type 2 POC glucose currently elevated throughout admission. Hemoglobin A1c currently 13.5. Patient needs to follow-up with primary care provider for follow-up on diabetic care, insulin prescription written on discharge. 3) asymptomatic COVID-19 infection Denies shortness of breath, fever, chills, sputum production, N/V/D. Vital signs stable and patient is afebrile. Currently satting 97% on room air. CBC does not demonstrate a leukocytosis. ID consulted and recommends quarantine until 08/05/2021. Vaccination was also recommended to patient, although I am doubtful that patient will be compliant with this recommendation as he was not interested in hearing about being vaccinated. Patient seen by Mateusz Galvez PA-C, under the supervision of Dr. Gore. Physical Exam Narrative Patient is a 35-year-old male comfortably resting in bed, alert and orient x3. Patient reports no significant pain throughout his leg, and only notices pain when his leg dangles off the side of the bed. Does not appear in acute distress. Denies chest pain, shortness of breath, palpitations, hemoptysis, sputum production, fever, chills, N/V/D. Const alert, oriented x3 and no apparent distress HEENT normocephalic, head/scalp atraumatic and hearing grossly normal bilaterally Eyes PERRL, EOMs intact bilaterally and conjunctivae normal Neck no lymphadenopathy, supple and no JVD Resp normal respiratory effort, no retractions, no use of accessory muscles and clear to auscultation bilaterally Cardio regular rate, regular rhythm, no murmurs and no JVD GI normal to inspection, nondistended, normoactive bowel sounds, soft to palpation and non-tender Extremity normal to inspection, full ROM and no clubbing, cyanosis or edema Skin no rashes or lesions noted, no wounds and skin turgor normal Neuro CN's II-XII intact bilaterally Psych affect normal Weight / BMI Weight Weight: 181 lb 7.047 oz Body Mass Index (BMI) 23.9 ABG / Lab / Microbiology Data Result Diagrams: 07/29/21 03:32 07/29/21 03:32 Laboratory: Laboratory Results - last 24 hr 07/28/21 16:22: POC Glucose 160 H 07/28/21 22:07: POC Glucose 109 07/29/21 03:32: Vancomycin Trough 13.1 07/29/21 03:32: WBC 9.3, RBC 3.82 L, Hgb 10.8 L, Hct 32.0 L, MCV 83.8, MCH 28.3, MCHC 33.8, RDW Std Deviation 35.8, RDW Coeff of James 11.8, Plt Count 354, MPV 10.8, Immature Gran % (Auto) 0.400, Neut % (Auto) 58.2, Lymph % (Auto) 30.2, [place] % (Auto) 8.9, Eos % (Auto) 1.7, Baso % (Auto) 0.6, Absolute Neuts (auto) 5.4, Absolute Lymphs (auto) 2.81, Nucleated RBC % 0 07/29/21 03:32: Sodium 138, Potassium 3.2 L, Chloride 101, Carbon Dioxide 31.0, Anion Gap 6, BUN 7, Creatinine 0.58 L, Estim Creat Clear Calc 202.81, Est GFR (MDRD) Af Amer 206, Est GFR (MDRD) Non-Af 170, BUN/Creatinine Ratio 12.1, Glucose 305 H, Calcium 8.4 L 07/29/21 08:17: POC Glucose 337 H Microbiology: Microbiology 07/26/21 15:50 Wound Drainage - Aerobic & Anaerobic Swabs Gram Stain - Final 07/26/21 15:50 Wound Drainage - Aerobic & Anaerobic Swabs Wound Culture - Final Streptococcus agalactiae (B) Meth. resistant Staph. aureus 07/26/21 15:50 Wound Drainage - Aerobic & Anaerobic Swabs Anaerobic Culture - Final No anaerobic bacteria isolated. 07/27/21 09:11 Tissue - Left Foot Gram Stain - Final 07/27/21 09:11 Tissue - Left Foot Wound Culture - Preliminary Streptococcus agalactiae (B) Staphylococcus aureus 07/27/21 09:11 Tissue - Left Foot Anaerobic Culture - Preliminary Checking for anaerobes, further studies to follow. 07/26/21 15:30 Blood Culture (Wb) - Anticubital Left Blood Culture - Preliminary No growth in 48 hours. 07/26/21 15:35 Blood Culture (Wb) - Right Hand Blood Culture - Preliminary No growth in 48 hours. D/C Instructions Weight Bearing Status: No weight bearing (No weightbearing left foot.) Keep extremity elevated above heart level: Left Leg (Keep left foot elevated as much as possible.) Call your doctor if your incision/area has: Continuous Slow Oozing, Increased Pain/ Swelling and Foul Smelling Discharge Call your doctor if you observe: Fever of 101 or Higher, Coldness, Increased Pain, Shortness of breath, Chest pain, Calf discomfort and Uncontrolled pain Please Follow Up With: Umu London DPM When: morning at [facility], [address] [place] [address], [address], [place] [address]. Office number [phone] - call to make appointment. Follow up sooner if needed. Meaningful Use Info Meaningful Use Diagnoses (Choose all that apply): None applicable Discharge Plan Admission Admit Date/Time: 07/26/21 17:15 Attending Provider: Lucia Gore Primary Care Provider: Leanne Antonio Consulting Providers: Umu London ; Nemesio Montalvo Instructions Patient Instructions: Coronavirus Disease 2019 (COVID-19): Overview, Coronavirus Disease 2019 (COVID-19): Caring for Yourself or Others, Preventing the Spread of Infection Understanding Isolation Procedures Additional Instructions / Restrictions: Maintain nonweightbearing to the left foot. Use assistive device. Change dressing daily with Dakin wet-to-dry gauze, abdominal pad, Kerlix, Mehdi wrap. To elevate limb at rest. Due to COVID-19 infection I recommend isolation until 08/05/21. F/U with family doctor regarding blood sugar checks, insulin, etc Discharge Orders/Prescriptions Prescriptions: New Dakin's Solution 0.25 % solution 1 applic topical DAILY Qty: 473 RF: 0 Lantus U-100 Insulin 100 unit/mL solution 20 unit subcut DAILY Qty: 20 RF: 0 Lantus U-100 Insulin 100 unit/mL solution 25 unit subcut QHS Qty: 20 RF: 0 sulfamethoxazole-trimethoprim [Bactrim DS] 800-160 mg tablet 1 tab PO BID Qty: 14 RF: 0 amoxicillin-pot clavulanate [Augmentin] 875-125 mg tablet 1 tab PO Q12H Qty: 14 RF: 0 Referrals / Follow Up: Leanne Antonio MD [Primary Care Provider] - 07/31/21 11:40 am Umu London DPM [STAFF PHYSICIAN] - 08/07/21 10:00 am (wound center; call [phone]. If can't got on wound center schedule, follow up at [facility]; [phone].) Disposition Disposition (needs filled in before D/C Order can be placed): Home, Self Care Documented by User: Dr. Lucia Gore MD 07/29/21 17:30 Providers Date of Admission: 07/26/21 Reason For Visit: LEFT DIABETIC FOOT Medications at Discharge Home Medications amoxicillin-pot clavulanate [Augmentin] 1 tab PO Q12H #14 tab 07/29/21 insulin glargine [Lantus U-100 Insulin] 20 unit SUBCUT DAILY #20 ml 07/29/21 insulin glargine [Lantus U-100 Insulin] 25 unit SUBCUT QHS #20 ml 07/29/21 sodium hypochlorite [Dakin's Solution] 1 applic TOPICAL DAILY #473 ml 07/29/21 sulfamethoxazole-trimethoprim [Bactrim DS] 1 tab PO BID #14 tab 07/29/21 ABG / Lab / Microbiology Data Result Diagrams: 07/29/21 03:32 07/29/21 03:32 Discharge Plan Admission Admit Date/Time: 07/26/21 17:15 Attending Provider: Lucia Gore Primary Care Provider: Leanne Antonio Consulting Providers: Umu London ; Nemesio Montalvo Instructions Patient Instructions: Coronavirus Disease 2019 (COVID-19): Overview, Coronavirus Disease 2019 (COVID-19): Caring for Yourself or Others, Preventing the Spread of Infection Understanding Isolation Procedures Additional Instructions / Restrictions: Maintain nonweightbearing to the left foot. Use assistive device. Change dressing daily with Dakin wet-to-dry gauze, abdominal pad, Kerlix, Mehdi wrap. To elevate limb at rest. Due to COVID-19 infection I recommend isolation until 08/05/21. F/U with family doctor regarding blood sugar checks, insulin, etc Discharge Orders/Prescriptions Prescriptions: New Dakin's Solution 0.25 % solution 1 applic topical DAILY Qty: 473 RF: 0 Lantus U-100 Insulin 100 unit/mL solution 20 unit subcut DAILY Qty: 20 RF: 0 Lantus U-100 Insulin 100 unit/mL solution 25 unit subcut QHS Qty: 20 RF: 0 sulfamethoxazole-trimethoprim [Bactrim DS] 800-160 mg tablet 1 tab PO BID Qty: 14 RF: 0 amoxicillin-pot clavulanate [Augmentin] 875-125 mg tablet 1 tab PO Q12H Qty: 14 RF: 0 Referrals / Follow Up: Leanne Antonio MD [Primary Care Provider] - 07/31/21 11:40 am Umu London DPM [STAFF PHYSICIAN] - 08/07/21 10:00 am (wound center; call [phone]. If can't got on wound center schedule, follow up at [facility]; [phone].) Disposition Disposition (needs filled in before D/C Order can be placed): Home, Self Care Charges/Coding Addendum Addendum: Patient seen by Mateusz Galvez PA-C under my supervision Patient is a 35 y/o male with a PMH as outlined who was admitted via the ED on 07/26/2021 with a complaint of left lower extremity swelling and pain as well as redness. He had noticed symptoms about 5 days prior to admission and states he has had similar skin infections in the past due to hazardous working environment for him.He had no other complaints. Xray of the LLE showed an ulcer of the lateral plantar foot with an adjacent foreign body but no osteomyelitis. He had associated leucocytosis of 14,000 and hyponatremia as well as hypokalemia. He was admitted and managed for cellulitis of the left lower extremity due to foreign body. Podiatry was consulted and he was started on IV vancomycin and zosyn. ID was also consulted. He had incision and drainage of left foot abscess with removal of foreign body on 07/27/2021. MRSA nasal screen was positive. Preliminary cultures of the wound showed MRSA and strep. His blood sugars were also elevated and his A1c was 13.5. Was put on Lantus 30 units nightly and 20 units at breakfast. Covid test done was also positive and patient was asymptomatic. Patient remained stable and pain improved. Podiatry and ID reviewed him and he was discharged home on 07/29/2021. Per ID, he was discharged home on oral Bactrim and Augmentin for 1 week. He is to follow-up with his primary care doctor and podiatry. Patient was counseled to remain in quarantine till 08/05/2021 for COVID-19 infection. Patient was counseled about vaccination after his quarantine. And if remained asymptomatic patient was not interested. He was counseled on compliance with his insulin and was discharged home on 07/29/2021. Patient seen and examined prior to discharge. He had no complaints and felt well. Review of symptoms otherwise negative. Labs and vitals reviewed. Medication reviewed and reconciled. O/E: Const alert, oriented x3 and no apparent distress HEENT normocephalic, head/scalp atraumatic and hearing grossly normal bilaterally Eyes PERRL, EOMs intact bilaterally and conjunctivae normal Neck no lymphadenopathy, supple and no JVD Resp normal respiratory effort, no retractions, no use of accessory muscles and clear to auscultation bilaterally Cardio regular rate, regular rhythm, no murmurs and no JVD GI normal to inspection, nondistended, normoactive bowel sounds, soft to palpation and non-tender Extremity LLE wrapped in bandage. Skin no rashes or lesions noted, no wounds and skin turgor normal Neuro CN's II-XII intact bilaterally Psych affect normal Plan is for discharge home as above. Rest as per Mateusz Galvez PA-C's notes which I reviewed and endorsed. Visit Charges Inpatient E&M: [id number] Disch Hosp
[2021-07-29 14:11] LABS: Bedside Glucose 250 mg/dL (70-110)
[2021-07-29 14:30] VITALS: BP 148/93; PULSE 87; RESP 18; TEMP 37.1; O2SAT 97
[2021-07-29 16:31] LABS: Bedside Glucose 184 mg/dL (70-110)
[2021-07-29 17:00] VITALS: BP 148/93; PULSE 87; RESP 18; TEMP 37.1; O2SAT 97
--- NOTE | 2021-07-30 15:15 | CASEMGMT ---
ELANA WADE F/u Call: DC Date: 07.29.2021 DC Diagnosis: Diabetic foot infection, Asymptomatic Covid DC Disposition: Home Lace/Strata: 05/27 Called patient listed cell phone, no answer. VM did not verify correct identity so therefore no VM was left. ELANA Schaefer
== END 2021-07-29 17:00 | disposition home or self-care (01) | DRG 622 ==
LOC: ED 17:21 → MS2 18:25 → MS3 07-27 10:23
PROVIDERS: Anesthesiology; Hospitalist; Internal Medicine; Physician Assistant; Podiatrist; Admitting Provider Internal Medicine; Emergency Provider Emergency Medicine; PCP Internal Medicine; Referring Provider Internal Medicine; Visit Provider Student in an Organized Health Care Education/Training Program
PROC: 0JCR0ZZ Extirpation of Matter from Left Foot Subcutaneous Tissue and Fascia, Open Approach (ICD-10-PCS; principal; 2021-07-27 08:30)
DX: E11.622 Type 2 diabetes mellitus with other skin ulcer (principal); U07.1 COVID-19; L03.116 Cellulitis of left lower limb; L02.612 Cutaneous abscess of left foot; E11.628 Type 2 diabetes mellitus with other skin complications; E11.621 Type 2 diabetes mellitus with foot ulcer; B95.62 Methicillin resistant Staphylococcus aureus infection as the cause of diseases classified elsewhere; E11.65 Type 2 diabetes mellitus with hyperglycemia; B95.4 Other streptococcus as the cause of diseases classified elsewhere; E87.6 Hypokalemia; J45.909 Unspecified asthma, uncomplicated; G62.9 Polyneuropathy, unspecified; L97.529 Non-pressure chronic ulcer of other part of left foot with unspecified severity; S90.852A Superficial foreign body, left foot, initial encounter; W45.8XXA Other foreign body or object entering through skin, initial encounter; Z83.3 Family history of diabetes mellitus; Z91.19 Patient's noncompliance with other medical treatment and regimen; Z78.9 Other specified health status; H54.7 Unspecified visual loss
CPT/HCPCS: 36415; 73620; 73630; 73721; 76000; 80048; 80053; 80202; 82962; 83036; 83605; 85025; 85652; 86140; 87015; 87040; 87070; 87075; 87077; 87102; 87116; 87176; 87186; 87205; 87206; 87635; 87640; 88300; 88304; 93005; 97161; 97166; 97535; 97802; 99251; 99285; J7030; J7040; J7050; U0005; A4216; G0463; J0696; J2405; U0003

== ENCOUNTER 2021-08-21 11:15 | Outpatient (RCR) | payer BC, SELFPAY ==
[2021-08-07 10:28] VITALS: BP 123/80; PULSE 99; RESP 20; TEMP 36.5; BMI 23.8
--- NOTE | 2021-08-07 11:46 | PCM.WC.PN ---
History of Present Illness Date of Service: 08/07/21 Chief Complaint: left foot wound (prior foreign body and infection) History of Wound: This 35-year-old male sustained a metallic foreign body and presented to the hospital with infection which required surgical intervention on 07-27-21. He had foreign body excision, incision drainage and debridement of all nonviable heel pad tissue of the left lower extremity. Improved with IV antibiotics and has been discharged home on oral Bactrim and Augmentin. He relates he only missed 2 doses so far and is now back on track. He tries to put weight on the ball of his foot and has a protective shoe. He is not sure how his glucose levels have been since he is returned home. His primary care physician follow-up was rescheduled for 08-13-21 because he recently had Covid and was advised not to go into the hospital for this outpatient visit. Progress of Wound: improved Objective Data Objective Data Vital Signs: Vital Signs Temp Pulse Resp BP 97.7 F L 99 20 H 123/80 H 08/07/21 10:28 08/07/21 10:28 08/07/21 10:28 08/07/21 10:28 Weight: 82.117 kg Body Mass Index (BMI) 23.8 Physical Exam Const alert and oriented x3 General Appearance: cooperative HEENT normocephalic Extremity Extremity Narrative: No calf tenderness Diminished pulses Muscle wasting noted General Extremity: edema and no tenderness to palpation of joints or extremities; Negative for cyanosis Skin Skin Narrative: no purulence, no streaking, no odor. Erythema has resolved. There is a large soft tissue defect to the plantar left heel with exposed adipose tissue. In the center of the wound, there is exposed healthy appearing plantar fascial band. There is no direct contact to the bone. There is peripheral skin peeling and minimal fibrous and devitalized peripheral medial tissue which was excised. Healthy bleeding tissue remains. His adjacent skin turgor is normal. General Skin Exam: Negative for erythema Neuro Neuro Narrative: lack of normal epicritic sensation via light touch is consistent with neuropathy status Psych cooperative and affect normal Debridement Note Debridement Note Wound debrided: Plantar left heel Wound Grade/Stage: 1 Type of Debridement: Excisional debridement Anesthesia Used: 4% Lidocaine Solution Depth: in the subcutaneous layer Percentage of wound debrided: 100 Instrument Used: #15 blade Tissue Removed: fibrous, devitalized subcutaneous, biofilm, slough Severity: Fat Layer Exposed Amount of bleeding with debridement: Mild Bleeding Controlled with: Pressure Patient tolerated procedure: Patient tolerated procedure well Post-Debridement Measurements and Additional Note: Post-Debridement Measurements/Treatment - Nurse 1 - General Ulcer Assessment Start: 08/07/21 09:05 Freq: Status: Active Protocol: JOSE [email or web address] Activity Type Activity Date Activity User E-Sign Co-Sign Detail Recorded Client Recorded Date Recorded By Document 08/07/21 10:28 DL [id number] 08/07/21 10:48 DL 08/07/21 10:28 - Today's Visit Information Type of service Initial Visit Arrival Mode Ambulatory Transfer Assistance None Patient Identification Verified (Name & Yes ) Patient Requires Transmission-Based No Precautions Finger Stick Blood Sugar(mg/dl) (if doesnt check indicated): Blood Sugar Stated by Patient Height and Weight Height 6 ft 1 in Weight 82.117 kg Weight in Pounds 181.0 lbs Body Mass Index (BMI) 23.8 BMI Classification Normal BSA - Waqas 2.06 Vital Signs Temperature (97.8 F-99.1 F) 97.7 F L Temperature Source Temporal Pulse Rate (60-100) 99 Pulse Location Monitor Respiratory Rate (12-18) 20 H Respiratory rate source Observation Blood Pressure (90/60-120/80) 123/80 H Blood Pressure Mean (mm Hg) 94 Source Monitor History Since Last Visit- (Skip if this is Patient's initial visit) Left Footwear Slipper Right Footwear Slipper Pain Scale: 0-10 Numeric Is Patient Pain Free? Yes Lower Extremity Assessment/ Foot Assessment/ Toe Nail Assessment Left -Posterior Tibial Palpable No -Dorsalis Pedis Palpable No -Extremity Color Pale -Temperature of Extremity Warm -Capillary Refill Less than 3 Seconds -Dependent Rubor No -Blanched when Elevated No -Lipodermatosclerosis No -Other Deformity No -Prior Foot Ulcer No -Charcot Joint No -Prior Amputation No -Thick Yes -Discolored Yes -Deformed Yes -Improper Length & Hygeine No Right -Posterior Tibial Palpable No -Dorsalis Pedis Palpable No -Extremity Color Normal -Hair Growth on Legs Yes -Hair Growth on Toes Yes -Temperature of Extremity Warm -Capillary Refill Less than 3 Seconds -Dependent Rubor No -Blanched when Elevated No -Lipodermatosclerosis No -Other Deformity No -Prior Foot Ulcer No -Charcot Joint No -Prior Amputation No -Thick Yes -Discolored Yes -Deformed Yes -Improper Length & Hygeine No Neuropathy Assessment Feet - Top Side and Bottom <Entered> (a) Communication Assessment Preferred language Northern Irish Able to Read Yes Able to Write No Communication Tools None Right Hearing Abillity Normal Left Hearing Abillity Hard of Hearing Visual Assistive Devices Glasses Teaching Assessment Preferences Written, Demonstration Barriers to Learning None Readiness To Learn Good Willingness to Engage in Self Management Med Activies Readiness to Engage in Self Management Med Activities Anxiety Level Calm Cooperation Cooperative Education Importance Acknowledges Need Does Patient Smoke tobacco or other No substances Smoking Status Never smoker Is Patient Diabetic Yes Functional Assessment Recent Decline in Ability to Perform Denies Any Declines Culture/Yarsani/Scallop Cutter Machine Cultural/Yarsani Needs that may affect No Treatment Plan Would you allow our hospital security architect to No meet you for the purpose of spiritual/ emotional support? Scallop Cutter Machine to contact place of protestant No Teaching: Wound Center Discharge Instructions -Person Taught Patient Dressing Your Wound -Person Taught Patient *Welcome to the Wound Center -Person Taught Family (a) 1 - _ 2 - + WC - Nurse 1 - General Ulcer Measurement Start: 08/07/21 09:05 Freq: Status: Active Protocol: Activity Type Activity Date Activity User E-Sign Co-Sign Detail Recorded Client Recorded Date Recorded By Document 08/07/21 10:28 DL [id number] 08/07/21 10:48 DL 08/07/21 10:28 Wound Center Nurse 1 #1 L Plantar -Current Size (cm) - Length 2 -Current Size (cm) - Width 5.5 -Current Size (cm) - Depth 1.4 -Total Square Cm 11.0 -Photo Taken Yes -Classification - Thickness Full Thickness without Exposed Support Structure -Exudate Amt Medium -Exudate Type Serosanguineous -Wound Margin Distinct, Outline Attached -Granulation Amt Small (1-33%) -Granulation Quality Red -Necrosis Amt Large (67-100%) -Necrotic Tissue Type Adherent Slough -Structure Exposed N/A -Texture (Nhi-wound Skin Appearance) Scarring -Moisture (Nhi-wound Skin Appearance) No Abnormality -Color (Nhi-wound Skin Appearance) No Abnormality -Temperature (Nhi-wound Skin No Abnormality Appearance) (Pt Warm) -Tenderness on Palpation (Nhi-wound No Skin Appearance) -Ulcer Cleansing Soap and Water -Foul Odor after Cleansing No -Anesthetic Used 4% Lidocaine Solution WC - Nurse 2 - General Ulcer CM Notes Start: 08/07/21 09:05 Freq: Status: Active Protocol: Activity Type Activity Date Activity User E-Sign Co-Sign Detail Recorded Client Recorded Date Recorded By Document 08/07/21 11:13 VANESSA [id number] 08/07/21 11:19 VANESSA 08/07/21 11:13 Wound Center Nurse 2 -Time 11:14 -Correct Patient Yes -Correct Side, Site, Position Yes -Correct Procedure Yes -Procedure Performed Yes -Type of Procedure Debridement -Clinical Debridement Subcutaneous -Tissue Removed Subcutaneous -Post Debridement (cm) - Length 2 -Post Debridement (cm) - Width 5.6 -Post Debridement (cm) - Depth 1.5 -Total Square (Post) (cm) 11.2 -Area of Debridement (cm) - Length 2 -Area of Debridement (cm) - Width 5.6 -Total Square (Area) (cm) 11.2 -Tunneling No -Undermining/Tunneling No -Circular Undermining No -Wound/Ulcer Outcome Not Healed -Ulcer Cleansing Rinsed/ Irrigated with Saline -Foul Odor after Cleansing No -Bioengineered Tissue No -Bleeding Controlled with Pressure -Offloading Yes -Type of Offloading Surgical Shoe -Treatment Response Procedure Tolerated Well -Debridement - Subq, 1st 20sq cm Yes Pain Scale: 0-10 Numeric Is Patient Pain Free? Yes Assessment/Plan Assessment/Plan (1) Cellulitis of left lower limb: CODE(S): L03.116 - Cellulitis of left lower limb (2) Foreign body in left foot: CODE(S): S90.852A - Superficial foreign body, left foot, initial encounter (3) Type 2 diabetes mellitus with diabetic polyneuropathy: CODE(S): E11.42 - Type 2 diabetes mellitus with diabetic polyneuropathy PLAN: I reviewed and discussed his case today. Debridement was performed today as noted in the clinical panel to all of the ulcer sites. It is noted he had surgical intervention at [facility] on 07-27-21. The following work up and care recommendations were made: Dressing: To continue daily dressing changes with Dakin wet-to-dry solution. I recommend negative pressure therapy and prior authorization will be initiated. This is medically necessary to reduce wound healing time and improved granulation tissue now that his acute infection is resolving well. Wash: Antibacterial soap and water. Do not soak. Tissue growth optimization: Advanced wound products will be considered in the future after foot stabilization continues Offload: I recommend a nonweightbearing status with the use of a walker or knee roller. A prescription for knee roller was provided and he does not currently want to proceed forward with this. He also has a surgical shoe and has been placing weight on his forefoot which is okay for limited transferring however not ideal for routine ambulation. Vascular: He has palpable pulses Edema: To elevate at rest. Mehdi wrap applied Infection: Not having systemic signs of illness. His local signs of infection are significant improved. He was advised to complete his oral Bactrim and Augmentin prescription. His culture results demonstrated MRSA and strep B he was previously seen at [facility] by infectious disease specialist Dr. Montalvo. Pain: Well controlled due to his neuropathic status Host factors: He has an exceptionally high hemoglobin A1c and has not been checking his glucose levels now that he is returned home. He has many questions about his current medication regimen and it is noted he had to reschedule his primary care physician follow-up. I advised him to follow-up promptly to work on diet, exercise, medication changes to optimize his diabetic management and to reduce risks. He is at risk for limb loss and continued infection with this condition. I answered all the patient's questions. To return to the wound healing center in 1 week or call sooner if the patient has any questions or concerns.
[2021-08-14 10:27] VITALS: BP 127/69; PULSE 98; RESP 16; TEMP 35.8; BMI 23.8
--- NOTE | 2021-08-14 10:52 | PN.PCM_ITS ---
History of Present Illness Date of Service: 08/14/21 Chief Complaint: left foot wound (prior foreign body and infection) History of Wound: This 35-year-old male sustained a metallic foreign body and presented to the hospital with infection which required surgical intervention on 07-27-21. He had foreign body excision, incision drainage and debridement of all nonviable heel pad tissue of the left lower extremity. Improved with IV antibiotics and has been discharged home on oral Bactrim and Augmentin. This has been completed. He has been trying to walk around on his toe and does not use an assistive device. He received his wound VAC. He denies fever, chill, nausea, vomiting, odor or redness Progress of Wound: improved Objective Data Objective Data Vital Signs: Vital Signs Temp Pulse Resp BP 96.4 F L 98 16 127/69 H 08/14/21 10:27 08/14/21 10:27 08/14/21 10:27 08/14/21 10:27 Oxygen Delivery Method Room Air Weight: 82.117 kg Body Mass Index (BMI) 23.8 Physical Exam Const alert and oriented x3 General Appearance: cooperative HEENT normocephalic Extremity Extremity Narrative: No calf tenderness Diminished pulses Muscle wasting noted General Extremity: edema and no tenderness to palpation of joints or extremities; Negative for cyanosis Skin Skin Narrative: no purulence, no streaking, no odor. Erythema has resolved. There is a large soft tissue defect to the plantar left heel with exposed adipose tissue. In the center of the wound, there is no longer exposed plantar fascial band. There is no direct contact to the bone. There is peripheral skin peeling and minimal fibrous and devitalized peripheral medial tissue which was excised. Healthy bleeding tissue remains. His adjacent skin turgor is normal. nhi wound inflammation decreased General Skin Exam: Negative for erythema Neuro Neuro Narrative: lack of normal epicritic sensation via light touch is consistent with neuropathy status Psych cooperative and affect normal Debridement Note Debridement Note Wound debrided: plantar left heel Wound Grade/Stage: 3 Type of Debridement: Excisional debridement Anesthesia Used: 4% Lidocaine Solution Depth: in the subcutaneous layer Percentage of wound debrided: 100 Instrument Used: #15 blade Tissue Removed: fibrous, devitalized subcutaneous, biofilm, slough Severity: Fat Layer Exposed Amount of bleeding with debridement: Mild Bleeding Controlled with: Pressure Patient tolerated procedure: Patient tolerated procedure well Post-Debridement Measurements and Additional Note: Post-Debridement Measurements/Treatment - Nurse 1 - General Ulcer Assessment Start: 08/07/21 09:05 Freq: Status: Active Protocol: ANSHUL Activity Type Activity Date Activity User E-Sign Co-Sign Detail Recorded Client Recorded Date Recorded By Document 08/07/21 10:28 DL [id number] 08/07/21 10:48 DL Document 08/14/21 10:27 BMF Desktop 08/14/21 10:36 BMF 08/07/21 08/14/21 10:28 10:27 - Today's Visit Information Type of service Initial Visit Follow-up Visit (Physician/PSYCHOLOGICAL OPERATIONS SPECIALIST ) Arrival Mode Ambulatory Ambulatory Transfer Assistance None None Patient Identification Verified (Name & Yes Yes ) Patient Requires Transmission-Based No No Precautions Finger Stick Blood Sugar(mg/dl) (if doesnt check indicated): Blood Sugar Stated by Patient Height and Weight Height 6 ft 1 in Weight 82.117 kg Weight in Pounds 181.0 lbs Body Mass Index (BMI) 23.8 23.8 BMI Classification Normal Normal BSA - Waqas 2.06 Vital Signs Temperature (97.8 F-99.1 F) 97.7 F L 96.4 F L Temperature Source Temporal Temporal Pulse Rate (60-100) 99 98 Pulse Location Monitor Monitor Respiratory Rate (12-18) 20 H 16 Respiratory rate source Observation Observation Oxygen Delivery Method Room Air Blood Pressure (90/60-120/80) 123/80 H 127/69 H Blood Pressure Mean (mm Hg) 94 88 Source Monitor Monitor Position Sitting Blood Pressure Location Left Arm Have you changed medications since your No last visit? Any new allergies or adverse reactions No Had a fall/change in ADL's that may No increase risk of falls Signs or symptoms of abuse and/or No neglect since last visit Have you been in the hospital since your No last visit? Has dressing in place as prescribed Yes Has compression in place as prescribed Yes Has offloadiing in place as prescribed No Experienced any changes in pain level or No management History Since Last Visit- (Skip if this is Patient's initial visit) Left Footwear Slipper Slipper Right Footwear Slipper Slipper Pain Scale: 0-10 Numeric Is Patient Pain Free? Yes Yes Lower Extremity Assessment/ Foot Assessment/ Toe Nail Assessment Left -Posterior Tibial Palpable No -Dorsalis Pedis Palpable No -Extremity Color Pale -Temperature of Extremity Warm -Capillary Refill Less than 3 Seconds -Dependent Rubor No -Blanched when Elevated No -Lipodermatosclerosis No -Other Deformity No -Prior Foot Ulcer No -Charcot Joint No -Prior Amputation No -Thick Yes -Discolored Yes -Deformed Yes -Improper Length & Hygeine No Right -Posterior Tibial Palpable No -Dorsalis Pedis Palpable No -Extremity Color Normal -Hair Growth on Legs Yes -Hair Growth on Toes Yes -Temperature of Extremity Warm -Capillary Refill Less than 3 Seconds -Dependent Rubor No -Blanched when Elevated No -Lipodermatosclerosis No -Other Deformity No -Prior Foot Ulcer No -Charcot Joint No -Prior Amputation No -Thick Yes -Discolored Yes -Deformed Yes -Improper Length & Hygeine No Neuropathy Assessment Feet - Top Side and Bottom <Entered> (a) Communication Assessment Preferred language Hungarian Able to Read Yes Able to Write No Communication Tools None Right Hearing Abillity Normal Left Hearing Abillity Hard of Hearing Visual Assistive Devices Glasses Teaching Assessment Preferences Written, Demonstration Barriers to Learning None Readiness To Learn Good Willingness to Engage in Self Management Med Activies Readiness to Engage in Self Management Med Activities Anxiety Level Calm Cooperation Cooperative Education Importance Acknowledges Need Does Patient Smoke tobacco or other No substances Smoking Status Never smoker Is Patient Diabetic Yes Functional Assessment Recent Decline in Ability to Perform Denies Any Declines Culture/Alevism/Director Of Research Center Cultural/Alevism Needs that may affect No Treatment Plan Would you allow our hospital grinder outside diameter to No meet you for the purpose of spiritual/ emotional support? Director Of Research Center to contact place of rastafari No Teaching: Wound Center Discharge Instructions -Person Taught Patient Dressing Your Wound -Person Taught Patient *Welcome to the Wound Center -Person Taught Family (a) 1 - _ 2 - + WC - Nurse 1 - General Ulcer Measurement Start: 08/07/21 09:05 Freq: Status: Active Protocol: Activity Type Activity Date Activity User E-Sign Co-Sign Detail Recorded Client Recorded Date Recorded By Document 08/07/21 10:28 DL [id number] 08/07/21 10:48 DL Document 08/14/21 10:27 [facility] Desktop 08/14/21 10:36 BMF 08/07/21 08/14/21 10:28 10:27 Wound Center Nurse 1 #1 L Plantar -Combined with other wound No -Current Size (cm) - Length 2 2.3 -Current Size (cm) - Width 5.5 5 -Current Size (cm) - Depth 1.4 1 -Total Square Cm 11.0 11.5 -Photo Taken Yes No -Epithelialization Small 1-33% -Tunneling No -Undermining/Tunneling No -Circular Undermining No -Classification - Thickness Full Thickness without Exposed Support Structure -Exudate Amt Medium Large -Exudate Type Serosanguineous Serosanguineous -Wound Margin Distinct, Thickened Outline Attached -Granulation Amt Small (1-33%) Medium (34-66%) -Granulation Quality Red Red -Slough/Fibrin Yes -Necrosis Amt Large (67-100%) Medium (34-66%) -Necrotic Tissue Type Adherent Slough Adherent Slough -Structure Exposed N/A -Texture (Nhi-wound Skin Appearance) Scarring Assessed, Scarring -Moisture (Nhi-wound Skin Appearance) No Abnormality Assessed, Maceration,Dry/ Scaly -Color (Nhi-wound Skin Appearance) No Abnormality Assessed,Palor -Temperature (Nhi-wound Skin No Abnormality No Abnormality Appearance) (Pt Warm) (Pt Warm) -Tenderness on Palpation (Nhi-wound No No Skin Appearance) -Ulcer Cleansing Soap and Water Soap and Water -Foul Odor after Cleansing No -Anesthetic Used 4% Lidocaine 4% Lidocaine Solution Solution, Cetacaine WC - Nurse 2 - General Ulcer CM Notes Start: 08/07/21 09:05 Freq: Status: Active Protocol: Activity Type Activity Date Activity User E-Sign Co-Sign Detail Recorded Client Recorded Date Recorded By Document 08/07/21 11:13 JF [id number] 08/07/21 11:19 Document 08/14/21 10:43 [id number] 08/14/21 10:50 08/07/21 08/14/21 11:13 10:43 Wound Center Nurse 2 #1 L Plantar -Time 11:14 10:44 -Correct Patient Yes Yes -Correct Side, Site, Position Yes Yes -Correct Procedure Yes Yes -Procedure Performed Yes Yes -Type of Procedure Debridement Debridement -Clinical Debridement Subcutaneous Subcutaneous -Tissue Removed Subcutaneous Subcutaneous -Post Debridement (cm) - Length 2 2.5 -Post Debridement (cm) - Width 5.6 5 -Post Debridement (cm) - Depth 1.5 1 -Total Square (Post) (cm) 11.2 12.5 -Area of Debridement (cm) - Length 2 2.5 -Area of Debridement (cm) - Width 5.6 5 -Total Square (Area) (cm) 11.2 12.5 -Tunneling No No -Undermining/Tunneling No No -Circular Undermining No No -Wound/Ulcer Outcome Not Healed Not Healed -Ulcer Cleansing Rinsed/ Rinsed/ Irrigated with Irrigated with Saline Saline -Foul Odor after Cleansing No No -Bioengineered Tissue No No -Bleeding Controlled with Pressure Pressure -Offloading Yes No -Type of Offloading Surgical Shoe -Treatment Response Procedure Procedure Tolerated Well Tolerated Well -Debridement - Subq, 1st 20sq cm Yes Yes Pain Scale: 0-10 Numeric Is Patient Pain Free? Yes Yes Assessment/Plan Assessment/Plan (1) Cellulitis of left lower limb: CODE(S): L03.116 - Cellulitis of left lower limb (2) Foreign body in left foot: CODE(S): S90.852A - Superficial foreign body, left foot, initial encounter (3) Type 2 diabetes mellitus with diabetic polyneuropathy: CODE(S): E11.42 - Type 2 diabetes mellitus with diabetic polyneuropathy PLAN: I reviewed and discussed his case today. Debridement was performed today as noted in the clinical panel to all of the ulcer sites. It is noted he had surgical intervention at [facility] on 07-27-21. The following work up and care recommendations were made: Dressing: To continue wound vac changes three times a week; continuous 150 mmHg. He will return for nursing assistance and will see if his girlfriend is able to help him with this at home. Tissue growth optimization: Advanced wound products will be considered in the future after foot stabilization continues Offload: I recommend a nonweightbearing status with the use of a walker or knee roller. A prescription for knee roller was provided and he does not currently want to proceed forward with this. He also has a surgical shoe and has been placing weight on his forefoot which is okay for limited transferring however not ideal for routine ambulation. He has not been using knee roller and is not planning on getting one. I advised him to use his walker especially when he leaves the house to travel for visit. Compliance was reiterated. Vascular: He has palpable pulses Edema: To elevate at rest. Mehdi wrap applied Infection: He has resolution of infection signs and has completed oral antibiotic course. His prior culture results demonstrated MRSA and strep B he was previously seen at [facility] by infectious disease specialist Dr. Montalvo. Pain: Well controlled due to his neuropathic status Host factors: He has an exceptionally high hemoglobin A1c and has not been checking his glucose levels now that he is returned home. I advised him to follow-up promptly to work on diet, exercise, medication changes to optimize his diabetic management and to reduce risks. He is at risk for limb loss and continued infection with this condition. His short-term disability paperwork will be completed. I answered all the patient's questions. To return to the wound healing center in 1 week or call sooner if the patient has any questions or concerns.
[2021-08-16 14:15] VITALS: BP 109/74; PULSE 87; TEMP 36.1; BMI 23.8
[2021-08-21 11:24] VITALS: BP 131/95; PULSE 91; RESP 16; TEMP 36; BMI 23.8
--- NOTE | 2021-08-21 11:55 | PCM.WC.PN ---
History of Present Illness Date of Service: 08/21/21 Chief Complaint: left foot wound (prior foreign body and infection) History of Wound: This 35-year-old male sustained a metallic foreign body and presented to the hospital with infection which required surgical intervention on 07-27-21. He had foreign body excision, incision drainage and debridement of all nonviable heel pad tissue of the left lower extremity. Improved with IV antibiotics and has been discharged home on oral Bactrim and Augmentin. This has been completed. He denies fever, chill, nausea, vomiting, odor or redness. He use the wound VAC this past week and is no longer able to proceed due to daily cost of over $20. Progress of Wound: improved Objective Data Objective Data Vital Signs: Vital Signs Temp Pulse Resp BP 96.8 F L 91 16 131/95 H 08/21/21 11:24 08/21/21 11:24 08/21/21 11:24 08/21/21 11:24 Oxygen Delivery Method Room Air Weight: 82.117 kg Body Mass Index (BMI) 23.8 Physical Exam Const alert and oriented x3 General Appearance: cooperative HEENT normocephalic Extremity Extremity Narrative: No calf tenderness Diminished pulses Muscle wasting noted General Extremity: edema and no tenderness to palpation of joints or extremities; Negative for cyanosis Skin Skin Narrative: no purulence, no streaking, no odor. Erythema has resolved. There is a large soft tissue defect to the plantar left heel with exposed adipose tissue. In the center of the wound, there is no longer exposed plantar fascial band. There is no direct contact to the bone. There is peripheral skin peeling and minimal fibrous and devitalized peripheral medial tissue which was excised. Healthy bleeding tissue remains. His adjacent skin turgor is normal. nhi wound inflammation decreased General Skin Exam: Negative for erythema Neuro Neuro Narrative: lack of normal epicritic sensation via light touch is consistent with neuropathy status Psych cooperative and affect normal Debridement Note Debridement Note Wound debrided: Plantar left foot Wound Grade/Stage: 2 Type of Debridement: Excisional debridement Anesthesia Used: 4% Lidocaine Solution Depth: in the subcutaneous layer Percentage of wound debrided: 100 Instrument Used: #15 blade Tissue Removed: fibrous, devitalized subcutaneous, biofilm, slough Severity: Fat Layer Exposed Amount of bleeding with debridement: Mild Bleeding Controlled with: Pressure Patient tolerated procedure: Patient tolerated procedure well Post-Debridement Measurements and Additional Note: Post-Debridement Measurements/Treatment WC - Nurse 1 - General Ulcer Assessment Start: 08/07/21 09:05 Freq: Status: Active Protocol: ANSHUL Activity Type Activity Date Activity User E-Sign Co-Sign Detail Recorded Client Recorded Date Recorded By Document 08/07/21 10:28 DL [id number] 08/07/21 10:48 DL Document 08/14/21 10:27 BMF Desktop 08/14/21 10:36 BMF Document 08/16/21 14:15 AK [id number] 08/16/21 14:19 AK Document 08/21/21 11:24 BMF Desktop 08/21/21 11:34 BMF 08/07/21 08/14/21 08/16/21 10:28 10:27 14:15 WC - Today's Visit Information Type of service Initial Visit Follow-up Visit Nurse-only (Physician/HEAT TREATING FURNACE TENDER Visit ) Arrival Mode Ambulatory Ambulatory Ambulatory Transfer Assistance None None None Patient Identification Verified (Name & Yes Yes Yes ) Patient Requires Transmission-Based No No No Precautions Safety Precautions NA Finger Stick Blood Sugar(mg/dl) (if doesnt check indicated): Blood Sugar Stated by Patient Height and Weight Height 6 ft 1 in Weight 82.117 kg Weight in Pounds 181.0 lbs Body Mass Index (BMI) 23.8 23.8 23.8 BMI Classification Normal Normal Normal BSA - Waqas 2.06 Vital Signs Temperature (97.8 F-99.1 F) 97.7 F L 96.4 F L 96.9 F L Temperature Source Temporal Temporal Temporal Pulse Rate (60-100) 99 98 87 Pulse Location Monitor Monitor Monitor Respiratory Rate (12-18) 20 H 16 Respiratory rate source Observation Observation Oxygen Delivery Method Room Air Blood Pressure (90/60-120/80) 123/80 H 127/69 H 109/74 Blood Pressure Mean (mm Hg) 94 88 85 Source Monitor Monitor Monitor Position Sitting Blood Pressure Location Left Arm Have you changed medications since your No No last visit? Any new allergies or adverse reactions No No Had a fall/change in ADL's that may No No increase risk of falls Signs or symptoms of abuse and/or No No neglect since last visit Have you been in the hospital since your No No last visit? Has dressing in place as prescribed Yes Yes Has compression in place as prescribed Yes Yes Has offloadiing in place as prescribed No N/A Experienced any changes in pain level or No No management History Since Last Visit- (Skip if this is Patient's initial visit) Left Footwear Slipper Slipper Regular Shoe Right Footwear Slipper Slipper Regular Shoe Pain Scale: 0-10 Numeric Is Patient Pain Free? Yes Yes Lower Extremity Assessment/ Foot Assessment/ Toe Nail Assessment Left -Posterior Tibial Palpable No -Dorsalis Pedis Palpable No -Extremity Color Pale -Temperature of Extremity Warm -Capillary Refill Less than 3 Seconds -Dependent Rubor No -Blanched when Elevated No -Lipodermatosclerosis No -Other Deformity No -Prior Foot Ulcer No -Charcot Joint No -Prior Amputation No -Thick Yes -Discolored Yes -Deformed Yes -Improper Length & Hygeine No Right -Posterior Tibial Palpable No -Dorsalis Pedis Palpable No -Extremity Color Normal -Hair Growth on Legs Yes -Hair Growth on Toes Yes -Temperature of Extremity Warm -Capillary Refill Less than 3 Seconds -Dependent Rubor No -Blanched when Elevated No -Lipodermatosclerosis No -Other Deformity No -Prior Foot Ulcer No -Charcot Joint No -Prior Amputation No -Thick Yes -Discolored Yes -Deformed Yes -Improper Length & Hygeine No Neuropathy Assessment Feet - Top Side and Bottom <Entered> (a) Communication Assessment Preferred language Mongolian Able to Read Yes Able to Write No Communication Tools None Right Hearing Abillity Normal Left Hearing Abillity Hard of Hearing Visual Assistive Devices Glasses Teaching Assessment Preferences Written, Demonstration Barriers to Learning None Readiness To Learn Good Willingness to Engage in Self Management Med Activies Readiness to Engage in Self Management Med Activities Anxiety Level Calm Cooperation Cooperative Education Importance Acknowledges Need Does Patient Smoke tobacco or other No substances Smoking Status Never smoker Is Patient Diabetic Yes Functional Assessment Recent Decline in Ability to Perform Denies Any Declines Culture/Jain/Online Banking Specialist Cultural/Jain Needs that may affect No Treatment Plan Would you allow our hospital abrasive grader helper to No meet you for the purpose of spiritual/ emotional support? Online Banking Specialist to contact place of jain No Teaching: Wound Center Discharge Instructions -Person Taught Patient Dressing Your Wound -Person Taught Patient *Welcome to the Wound Center -Person Taught Family 08/21/21 11:24 WC - Today's Visit Information Type of service Follow-up Visit (Physician/HEAT TREATING FURNACE TENDER ) Arrival Mode Ambulatory Transfer Assistance None Patient Identification Verified (Name & Yes ) Patient Requires Transmission-Based No Precautions Safety Precautions Finger Stick Blood Sugar(mg/dl) (if indicated): Blood Sugar Height and Weight Height Weight Weight in Pounds Body Mass Index (BMI) 23.8 BMI Classification Normal BSA - Waqas Vital Signs Temperature (97.8 F-99.1 F) 96.8 F L Temperature Source Temporal Pulse Rate (60-100) 91 Pulse Location Monitor Respiratory Rate (12-18) 16 Respiratory rate source Observation Oxygen Delivery Method Room Air Blood Pressure (90/60-120/80) 131/95 H Blood Pressure Mean (mm Hg) 107 Source Monitor Position Sitting Blood Pressure Location Left Arm Have you changed medications since your last visit? Any new allergies or adverse reactions Had a fall/change in ADL's that may increase risk of falls Signs or symptoms of abuse and/or neglect since last visit Have you been in the hospital since your last visit? Has dressing in place as prescribed Has compression in place as prescribed Has offloadiing in place as prescribed Experienced any changes in pain level or management History Since Last Visit- (Skip if this is Patient's initial visit) Left Footwear Right Footwear Pain Scale: 0-10 Numeric Is Patient Pain Free? Yes Lower Extremity Assessment/ Foot Assessment/ Toe Nail Assessment Left -Posterior Tibial Palpable -Dorsalis Pedis Palpable -Extremity Color -Temperature of Extremity -Capillary Refill -Dependent Rubor -Blanched when Elevated -Lipodermatosclerosis -Other Deformity -Prior Foot Ulcer -Charcot Joint -Prior Amputation -Thick -Discolored -Deformed -Improper Length & Hygeine Right -Posterior Tibial Palpable -Dorsalis Pedis Palpable -Extremity Color -Hair Growth on Legs -Hair Growth on Toes -Temperature of Extremity -Capillary Refill -Dependent Rubor -Blanched when Elevated -Lipodermatosclerosis -Other Deformity -Prior Foot Ulcer -Charcot Joint -Prior Amputation -Thick -Discolored -Deformed -Improper Length & Hygeine Neuropathy Assessment Feet - Top Side and Bottom Communication Assessment Preferred language Able to Read Able to Write Communication Tools Right Hearing Abillity Left Hearing Abillity Visual Assistive Devices Teaching Assessment Preferences Barriers to Learning Readiness To Learn Willingness to Engage in Self Management Activies Readiness to Engage in Self Management Activities Anxiety Level Cooperation Education Importance Does Patient Smoke tobacco or other substances Smoking Status Is Patient Diabetic Functional Assessment Recent Decline in Ability to Perform Culture/Jain/Online Banking Specialist Cultural/Jain Needs that may affect Treatment Plan Would you allow our hospital abrasive grader helper to meet you for the purpose of spiritual/ emotional support? Online Banking Specialist to contact place of jain Teaching: Wound Center Discharge Instructions -Person Taught Dressing Your Wound -Person Taught *Welcome to the Wound Center -Person Taught (a) 1 - _ 2 - + WC - Nurse 1 - General Ulcer Measurement Start: 08/07/21 09:05 Freq: Status: Active Protocol: Activity Type Activity Date Activity User E-Sign Co-Sign Detail Recorded Client Recorded Date Recorded By Document 08/07/21 10:28 DL [id number] 08/07/21 10:48 DL Document 08/14/21 10:27 [email or web address] Desktop 08/14/21 10:36 BMF Document 08/21/21 11:24 BMF Desktop 08/21/21 11:34 BMF 08/07/21 08/14/21 08/21/21 10:28 10:27 11:24 Wound Center Nurse 1 #1 L Plantar -Combined with other wound No No -Current Size (cm) - Length 2 2.3 2.3 -Current Size (cm) - Width 5.5 5 5.3 -Current Size (cm) - Depth 1.4 1 1 -Total Square Cm 11.0 11.5 12.19 -Photo Taken Yes No No -Epithelialization Small 1-33% Small 1-33% -Tunneling No No -Undermining/Tunneling No No -Circular Undermining No No -Classification - Thickness Full Thickness without Exposed Support Structure -Exudate Amt Medium Large Large -Exudate Type Serosanguineous Serosanguineous Serosanguineous -Wound Margin Distinct, Thickened Distinct, Outline Outline Attached Attached -Granulation Amt Small (1-33%) Medium (34-66%) Large (67-100%) -Granulation Quality Red Red Red -Slough/Fibrin Yes Yes -Necrosis Amt Large (67-100%) Medium (34-66%) Small (1-33%) -Necrotic Tissue Type Adherent Slough Adherent Slough Adherent Slough -Structure Exposed N/A -Texture (Nhi-wound Skin Appearance) Scarring Assessed, Assessed, Scarring Scarring -Moisture (Nhi-wound Skin Appearance) No Abnormality Assessed, Assessed, Maceration,Dry/ Maceration Scaly -Color (Nhi-wound Skin Appearance) No Abnormality Assessed,Palor Assessed,Palor -Temperature (Nhi-wound Skin No Abnormality No Abnormality No Abnormality Appearance) (Pt Warm) (Pt Warm) (Pt Warm) -Tenderness on Palpation (Nhi-wound No No No Skin Appearance) -Ulcer Cleansing Soap and Water Soap and Water Soap and Water -Foul Odor after Cleansing No No -Anesthetic Used 4% Lidocaine 4% Lidocaine 4% Lidocaine Solution Solution, Solution Cetacaine WC - Nurse 2 - General Ulcer CM Notes Start: 08/07/21 09:05 Freq: Status: Active Protocol: Activity Type Activity Date Activity User E-Sign Co-Sign Detail Recorded Client Recorded Date Recorded By Document 08/07/21 11:13 [id number] 08/07/21 11:19 Document 08/14/21 10:43 [id number] 08/14/21 10:50 Document 08/21/21 11:52 [id number] 08/21/21 11:54 08/07/21 08/14/21 08/21/21 11:13 10:43 11:52 Wound Center Nurse 2 #1 L Plantar -Time 11:14 10:44 11:52 -Correct Patient Yes Yes Yes -Correct Side, Site, Position Yes Yes Yes -Correct Procedure Yes Yes Yes -Procedure Performed Yes Yes Yes -Type of Procedure Debridement Debridement Debridement -Clinical Debridement Subcutaneous Subcutaneous Subcutaneous -Tissue Removed Subcutaneous Subcutaneous Subcutaneous -Post Debridement (cm) - Length 2 2.5 2.4 -Post Debridement (cm) - Width 5.6 5 5.3 -Post Debridement (cm) - Depth 1.5 1 1 -Total Square (Post) (cm) 11.2 12.5 12.72 -Area of Debridement (cm) - Length 2 2.5 2.4 -Area of Debridement (cm) - Width 5.6 5 5.3 -Total Square (Area) (cm) 11.2 12.5 12.72 -Tunneling No No No -Undermining/Tunneling No No No -Circular Undermining No No No -Wound/Ulcer Outcome Not Healed Not Healed Not Healed -Ulcer Cleansing Rinsed/ Rinsed/ Rinsed/ Irrigated with Irrigated with Irrigated with Saline Saline Saline -Foul Odor after Cleansing No No No -Bioengineered Tissue No No No -Bleeding Controlled with Pressure Pressure Pressure -Offloading Yes No No -Type of Offloading Surgical Shoe -Treatment Response Procedure Procedure Procedure Tolerated Well Tolerated Well Tolerated Well -Debridement - Subq, 1st 20sq cm Yes Yes Yes Pain Scale: 0-10 Numeric Is Patient Pain Free? Yes Yes Yes WC - Nurse 3 - General Ulcer D/C NN Start: 08/07/21 09:05 Freq: Status: Active Protocol: Activity Type Activity Date Activity User E-Sign Co-Sign Detail Recorded Client Recorded Date Recorded By Document 08/14/21 11:27 BMF Desktop 08/14/21 11:28 BMF Edit Result 08/14/21 11:27 BMF (1) [id number] 08/15/21 07:28 PL Document 08/16/21 14:15 AK [id number] 08/16/21 14:19 AK (1) #1 L Plantar - NPWT Application Charge NPWT </= 50 sq cm => NPWT & Debridement ($) => (nc) 08/14/21 08/16/21 11:27 14:15 Wound Care Nurse 3 #1 L Plantar -Ulcer Cleansing Rinsed/ Rinsed/ Irrigated with Irrigated with Saline Saline -Foul Odor after Cleansing No No -Negative Pressure Wound Therapy Continue Continue -Setting (mmHg) 150 -Negative Pressure is Continuous Continuous -Other Dressing vac per rb rn -NPWT Application Charge NPWT & NPWT </= 50 sq Debridement (nc cm ($) ) Left -Compression Wrap Mehdi Wrap -Other mehdi to secure mehdi Treatment Response Procedure Procedure Tolerated Well Tolerated Well Vital Signs Temperature (97.8 F-99.1 F) 96.9 F L Temperature Source Temporal Pulse Rate (60-100) 87 Pulse Location Monitor Blood Pressure (90/60-120/80) 109/74 Blood Pressure Mean (mm Hg) 85 Source Monitor Pain Scale: 0-10 Numeric Is Patient Pain Free? Yes WC - Visit Discharge Discharge Condition Stable Stable Ambulatory Status Ambulatory Ambulatory Transportation Private Auto Private Auto Medication Reconcilliation completed & No provided to patient/care provider Clinical Summary of Care Provided Yes Assessment/Plan Assessment/Plan (1) Cellulitis of left lower limb: CODE(S): L03.116 - Cellulitis of left lower limb (2) Foreign body in left foot: CODE(S): S90.852A - Superficial foreign body, left foot, initial encounter (3) Type 2 diabetes mellitus with diabetic polyneuropathy: CODE(S): E11.42 - Type 2 diabetes mellitus with diabetic polyneuropathy PLAN: I reviewed and discussed his case today. Debridement was performed today as noted in the clinical panel to all of the ulcer sites. It is noted he had surgical intervention at [facility] on 07-27-21. The following work up and care recommendations were made: Dressing: He is no longer able to proceed with the wound VAC. To change dressing daily with Dakin solution wet-to-dry gauze. Tissue growth optimization: Advanced wound products will be considered in the future after foot stabilization continues Offload: I recommend a nonweightbearing status with the use of a walker or knee roller. A prescription for knee roller was provided and he does not currently want to proceed forward with this. He also has a surgical shoe and has been placing weight on his forefoot which is okay for limited transferring however not ideal for routine ambulation. He has not been using knee roller and is not planning on getting one. I advised him to use his walker especially when he leaves the house to travel for visit. Compliance was reiterated. Vascular: He has palpable pulses Edema: To elevate at rest. Mehdi wrap applied Infection: He has resolution of infection signs and has completed oral antibiotic course. His prior culture results demonstrated MRSA and strep B he was previously seen at [facility] by infectious disease specialist Dr. Montalvo. Pain: Well controlled due to his neuropathic status Host factors: He has an exceptionally high hemoglobin A1c and has not been checking his glucose levels now that he is returned home. I advised him to follow-up promptly to work on diet, exercise, medication changes to optimize his diabetic management and to reduce risks. He is at risk for limb loss and continued infection with this condition. His short-term disability paperwork will be completed upon receipt. I answered all the patient's questions. To return to the wound healing center in 1 week or call sooner if the patient has any questions or concerns.
== END 2021-08-25 23:59 ==
LOC: WC 11:15
PROVIDERS: PCP Internal Medicine; Visit Provider Podiatrist
DX: E11.621 Type 2 diabetes mellitus with foot ulcer (principal); L97.522 Non-pressure chronic ulcer of other part of left foot with fat layer exposed; L03.116 Cellulitis of left lower limb; E11.42 Type 2 diabetes mellitus with diabetic polyneuropathy
CPT/HCPCS: 11042; 97605; 99213; G0463

== ENCOUNTER 2021-09-18 10:30 | Outpatient (RCR) | payer BC, SELFPAY ==
[2021-08-26 00:31] VITALS: BP 131/95; PULSE 91; RESP 16; TEMP 36; BMI 23.8
[2021-09-04 11:24] VITALS: BP 147/92; PULSE 86; RESP 18; TEMP 36.2; BMI 23.8
--- NOTE | 2021-09-04 11:46 | PN.PCM_ITS ---
History of Present Illness Date of Service: 09/04/21 Chief Complaint: left foot wound (prior foreign body and infection) History of Wound: This 35-year-old male sustained a metallic foreign body and presented to the hospital with infection which required surgical intervention on 07-27-21. He had foreign body excision, incision drainage and debridement of all nonviable heel pad tissue of the left lower extremity. Improved with IV antibiotics and has been discharged home on oral Bactrim and Augmentin. This has been completed. He denies fever, chill, nausea, vomiting, odor or redness. He has been performing dressing changes with Dakin wet-to-dry gauze. Progress of Wound: Improving Objective Data Objective Data Vital Signs: Vital Signs Temp Pulse Resp BP 97.1 F L 86 18 147/92 H 09/04/21 11:24 09/04/21 11:24 09/04/21 11:24 09/04/21 11:24 Weight: 82.117 kg Body Mass Index (BMI) 23.8 Physical Exam Const alert and oriented x3 General Appearance: cooperative HEENT normocephalic Extremity Extremity Narrative: No calf tenderness Diminished pulses Muscle wasting noted General Extremity: edema and no tenderness to palpation of joints or extremities; Negative for cyanosis Skin Skin Narrative: no purulence, no streaking, no odor. Erythema has resolved. There is a large soft tissue defect to the plantar left heel with exposed adipose tissue. In the center of the wound, there is no longer exposed plantar fascial band. There is no direct contact to the bone. Healthy bleeding tissue remains. His adjacent skin turgor is normal. nhi wound inflammation resolved General Skin Exam: Negative for erythema Neuro Neuro Narrative: lack of normal epicritic sensation via light touch is consistent with neuropathy status Psych cooperative and affect normal Debridement Note Debridement Note Wound debrided: Plantar left foot Wound Grade/Stage: 1 Type of Debridement: Excisional debridement Anesthesia Used: 4% Lidocaine Solution Depth: in the subcutaneous layer Percentage of wound debrided: 100 Instrument Used: #15 blade Tissue Removed: fibrous, devitalized subcutaneous, biofilm, slough Severity: Fat Layer Exposed Amount of bleeding with debridement: Mild Bleeding Controlled with: Pressure Patient tolerated procedure: Patient tolerated procedure well Post-Debridement Measurements and Additional Note: Post-Debridement Measurements/Treatment JOSE RAFAEL - Nurse 1 - General Ulcer Assessment Start: 09/04/21 11:22 Freq: Status: Active Protocol: TRISTONEXDionte Activity Type Activity Date Activity User E-Sign Co-Sign Detail Recorded Client Recorded Date Recorded By Document 09/04/21 11:24 DL Desktop 09/04/21 11:30 DL 09/04/21 11:24 WC - Today's Visit Information Type of service Follow-up Visit (Physician/SLOT OPERATIONS MANAGER ) Arrival Mode Ambulatory Transfer Assistance None Patient Identification Verified (Name & Yes ) Patient Requires Transmission-Based No Precautions Finger Stick Blood Sugar(mg/dl) (if didnt check indicated): Blood Sugar Stated by Patient Height and Weight Body Mass Index (BMI) 23.8 BMI Classification Normal Vital Signs Temperature (97.8 F-99.1 F) 97.1 F L Temperature Source Temporal Pulse Rate (60-100) 86 Pulse Location Monitor Respiratory Rate (12-18) 18 Respiratory rate source Observation Blood Pressure (90/60-120/80) 147/92 H Blood Pressure Mean (mm Hg) 110 Source Monitor History Since Last Visit- (Skip if this is Patient's initial visit) Have you changed medications since your No last visit? Any new allergies or adverse reactions No Had a fall/change in ADL's that may No increase risk of falls Signs or symptoms of abuse and/or No neglect since last visit Have you been in the hospital since your No last visit? Has dressing in place as prescribed Yes Has compression in place as prescribed N/A Has offloadiing in place as prescribed No Experienced any changes in pain level or No management Pain Scale: 0-10 Numeric Is Patient Pain Free? Yes - Nurse 1 - General Ulcer Measurement Start: 09/04/21 11:22 Freq: Status: Active Protocol: Activity Type Activity Date Activity User E-Sign Co-Sign Detail Recorded Client Recorded Date Recorded By Document 09/04/21 11:24 DL [email or web address] 09/04/21 11:30 DL 09/04/21 11:24 Wound Center Nurse 1 #1 L Plantar -Current Size (cm) - Length 1 -Current Size (cm) - Width 2 -Current Size (cm) - Depth 0.1 -Total Square Cm 2 -Photo Taken No -Exudate Amt Small -Exudate Type Serosanguineous -Wound Margin Distinct, Outline Attached -Granulation Amt Large (67-100%) -Granulation Quality Red -Necrosis Amt Small (1-33%) -Necrotic Tissue Type Adherent Slough -Structure Exposed N/A -Texture (Nhi-wound Skin Appearance) Scarring -Moisture (Nhi-wound Skin Appearance) Dry/Scaly -Color (Nhi-wound Skin Appearance) No Abnormality -Temperature (Nhi-wound Skin No Abnormality Appearance) (Pt Warm) -Tenderness on Palpation (Nhi-wound No Skin Appearance) -Ulcer Cleansing Soap and Water -Foul Odor after Cleansing No -Anesthetic Used 5% Lidocaine Gel WC - Nurse 2 - General Ulcer CM Notes Start: 09/04/21 11:22 Freq: Status: Active Protocol: Activity Type Activity Date Activity User E-Sign Co-Sign Detail Recorded Client Recorded Date Recorded By Document 09/04/21 11:40 VANESSA [id number] 09/04/21 11:43 VANESSA 09/04/21 11:40 Wound Center Nurse 2 -Time 11:41 -Correct Patient Yes -Correct Side, Site, Position Yes -Correct Procedure Yes -Procedure Performed Yes -Type of Procedure Debridement -Clinical Debridement Subcutaneous -Tissue Removed Subcutaneous -Post Debridement (cm) - Length 1.1 -Post Debridement (cm) - Width 2.1 -Post Debridement (cm) - Depth 0.2 -Total Square (Post) (cm) 2.31 -Area of Debridement (cm) - Length 1.1 -Area of Debridement (cm) - Width 2.1 -Total Square (Area) (cm) 2.31 -Tunneling No -Undermining/Tunneling No -Circular Undermining No -Wound/Ulcer Outcome Not Healed -Ulcer Cleansing Rinsed/ Irrigated with Saline -Foul Odor after Cleansing No -Bioengineered Tissue No -Bleeding Controlled with Pressure -Offloading No -Treatment Response Procedure Tolerated Well -Debridement - Subq, 1st 20sq cm Yes Assessment/Plan Assessment/Plan (1) Cellulitis of left lower limb: CODE(S): L03.116 - Cellulitis of left lower limb (2) Foreign body in left foot: CODE(S): S90.852A - Superficial foreign body, left foot, initial encounter (3) Type 2 diabetes mellitus with diabetic polyneuropathy: CODE(S): E11.42 - Type 2 diabetes mellitus with diabetic polyneuropathy PLAN: I reviewed and discussed his case today. Debridement was performed today as noted in the clinical panel to all of the ulcer sites. It is noted he had surgical intervention at [facility] on 07-27-21. The following work up and care recommendations were made: Dressing: He is no longer able to proceed with the wound VAC. To change dressing daily with Dakin solution wet-to-dry gauze. Tissue growth optimization: Advanced wound products will be considered in the future after foot stabilization continues Offload: I recommend a nonweightbearing status with the use of a walker or knee roller. A prescription for knee roller was provided and he does not currently want to proceed forward with this. He also has a surgical shoe and has been placing weight on his forefoot which is okay for limited transferring however not ideal for routine ambulation. He has not been using knee roller and is not planning on getting one. I advised him to use his walker especially when he leaves the house to travel for visit. Compliance was reiterated. Vascular: He has palpable pulses Edema: To elevate at rest. Mehdi wrap applied Infection: He has resolution of infection signs and has completed oral antibiotic course. His prior culture results demonstrated MRSA and strep B he was previously seen at [facility] by infectious disease specialist Dr. Koo. Pain: Well controlled due to his neuropathic status Host factors: He has an exceptionally high hemoglobin A1c and has not been checking his glucose levels now that he is returned home. I advised him to follow-up promptly to work on diet, exercise, medication changes to optimize his diabetic management and to reduce risks. He is at risk for limb loss and continued infection with this condition. His short-term disability paperwork was completed. I answered all the patient's questions. To return to the wound healing center in 1 week or call sooner if the patient has any questions or concerns.
[2021-09-18 11:09] VITALS: BP 154/101; PULSE 88; RESP 18; TEMP 36.3; BMI 23.8
--- NOTE | 2021-09-18 11:48 | PN.PCM_ITS ---
History of Present Illness Date of Service: 09/18/21 Chief Complaint: left foot wound (prior foreign body and infection) History of Wound: This 35-year-old male sustained a metallic foreign body and presented to the hospital with infection which required surgical intervention on 07-27-21. He had foreign body excision, incision drainage and debridement of all nonviable heel pad tissue of the left lower extremity. Improved with IV antibiotics and has been discharged home on oral Bactrim and Augmentin. This has been completed. He denies fever, chill, nausea, vomiting, odor or redness. He denies drainage the last day. His glucose level has been returning at 300 instead of 600 range. He relates he is aware nutrition and medication management is necessary to keep his glucose levels in a more appropriate range however it is not of interest to make some of the changes. Progress of Wound: Healed Objective Data Objective Data Vital Signs: Vital Signs Temp Pulse Resp BP 97.3 F L 88 18 154/101 H 09/18/21 11:09 09/18/21 11:09 09/18/21 11:09 09/18/21 11:09 Weight: 82.117 kg Body Mass Index (BMI) 23.8 Physical Exam Extremity Extremity Narrative: No calf tenderness Diminished pulses Muscle wasting noted Skin Skin Narrative: no purulence, no streaking, no odor. Erythema has resolved. Full epithelialization is noted however there is atrophic plantar skin at the recently healed ulcer site Neuro Neuro Narrative: lack of normal epicritic sensation via light touch is consistent with neuropathy status Debridement Note Debridement Note Post-Debridement Measurements and Additional Note: Post-Debridement Measurements/Treatment - Nurse 1 - General Ulcer Assessment Start: 09/04/21 11:22 Freq: Status: Active Protocol: ANSHUL Activity Type Activity Date Activity User E-Sign Co-Sign Detail Recorded Client Recorded Date Recorded By Document 09/04/21 11:24 DL Desktop 09/04/21 11:30 DL Document 09/18/21 11:09 RB [id number] 09/18/21 11:12 RB 09/04/21 09/18/21 11:24 11:09 - Today's Visit Information Type of service Follow-up Visit Follow-up Visit (Physician/HYDROELECTRIC PLANT ELECTRICIAN (Physician/HYDROELECTRIC PLANT ELECTRICIAN ) ) Arrival Mode Ambulatory Ambulatory Transfer Assistance None None Patient Identification Verified (Name & Yes Yes ) Patient Requires Transmission-Based No No Precautions Finger Stick Blood Sugar(mg/dl) (if didnt check 301 indicated): Blood Sugar Stated by Stated by Patient Patient Height and Weight Body Mass Index (BMI) 23.8 23.8 BMI Classification Normal Normal Vital Signs Temperature (97.8 F-99.1 F) 97.1 F L 97.3 F L Temperature Source Temporal Temporal Pulse Rate (60-100) 86 88 Pulse Location Monitor Monitor Respiratory Rate (12-18) 18 18 Respiratory rate source Observation Observation Blood Pressure (90/60-120/80) 147/92 H 154/101 H Blood Pressure Mean (mm Hg) 110 118 Source Monitor Monitor Position Sitting Blood Pressure Location Left Arm History Since Last Visit- (Skip if this is Patient's initial visit) Have you changed medications since your No No last visit? Any new allergies or adverse reactions No No Had a fall/change in ADL's that may No No increase risk of falls Signs or symptoms of abuse and/or No No neglect since last visit Have you been in the hospital since your No No last visit? Has dressing in place as prescribed Yes Yes Has compression in place as prescribed N/A No Has offloadiing in place as prescribed No No Experienced any changes in pain level or No No management Pain Scale: 0-10 Numeric Is Patient Pain Free? Yes Yes WC - Nurse 1 - General Ulcer Measurement Start: 09/04/21 11:22 Freq: Status: Active Protocol: Activity Type Activity Date Activity User E-Sign Co-Sign Detail Recorded Client Recorded Date Recorded By Document 09/04/21 11:24 DL Desktop 09/04/21 11:30 DL Document 09/18/21 11:09 [id number] 09/18/21 11:12 RB 09/04/21 09/18/21 11:24 11:09 Wound Center Nurse 1 #1 L Plantar -Combined with other wound No -Current Size (cm) - Length 1 0.1 -Current Size (cm) - Width 2 0.1 -Current Size (cm) - Depth 0.1 0.1 -Total Square Cm 2 0.01 -Photo Taken No -Tunneling No -Undermining/Tunneling No -Circular Undermining No -Exudate Amt Small Small -Exudate Type Serosanguineous Serosanguineous -Wound Margin Distinct, Flat & Intact Outline Attached -Granulation Amt Large (67-100%) Medium (34-66%) -Granulation Quality Red [place] -Slough/Fibrin Yes -Necrosis Amt Small (1-33%) Small (1-33%) -Necrotic Tissue Type Adherent Slough Adherent Slough -Structure Exposed N/A N/A -Texture (Nhi-wound Skin Appearance) Scarring Scarring -Moisture (Nhi-wound Skin Appearance) Dry/Scaly Assessed -Color (Nhi-wound Skin Appearance) No Abnormality Assessed -Temperature (Nhi-wound Skin No Abnormality No Abnormality Appearance) (Pt Warm) (Pt Warm) -Tenderness on Palpation (Nhi-wound No No Skin Appearance) -Ulcer Cleansing Soap and Water Wound Cleanser -Foul Odor after Cleansing No -Anesthetic Used 5% Lidocaine 5% Lidocaine Gel Gel WC - Nurse 2 - General Ulcer CM Notes Start: 09/04/21 11:22 Freq: Status: Active Protocol: Activity Type Activity Date Activity User E-Sign Co-Sign Detail Recorded Client Recorded Date Recorded By Document 09/04/21 11:40 [id number] 09/04/21 11:43 Document 09/18/21 11:22 [id number] 09/18/21 11:26 09/04/21 09/18/21 11:40 11:22 Wound Center Nurse 2 -Time 11:41 11:23 -Correct Patient Yes No -Correct Side, Site, Position Yes No -Correct Procedure Yes No -Procedure Performed Yes No -Type of Procedure Debridement -Clinical Debridement Subcutaneous -Tissue Removed Subcutaneous -Post Debridement (cm) - Length 1.1 0 -Post Debridement (cm) - Width 2.1 0 -Post Debridement (cm) - Depth 0.2 0 -Total Square (Post) (cm) 2.31 0 -Area of Debridement (cm) - Length 1.1 0 -Area of Debridement (cm) - Width 2.1 0 -Total Square (Area) (cm) 2.31 0 -Tunneling No No -Undermining/Tunneling No No -Circular Undermining No No -Wound/Ulcer Outcome Not Healed Healed- Epithelialized -Ulcer Cleansing Rinsed/ Rinsed/ Irrigated with Irrigated with Saline Saline -Foul Odor after Cleansing No No -Bioengineered Tissue No No -Bleeding Controlled with Pressure Pressure -Offloading No Yes -Type of Offloading Camwalker -Treatment Response Procedure Procedure Tolerated Well Tolerated Well -Debridement - Subq, 1st 20sq cm Yes Yes Pain Scale: 0-10 Numeric Is Patient Pain Free? Yes - Nurse 3 - General Ulcer D/C NN Start: 09/04/21 11:22 Freq: Status: Active Protocol: Activity Type Activity Date Activity User E-Sign Co-Sign Detail Recorded Client Recorded Date Recorded By Document 09/04/21 11:48 DL [id number] 09/04/21 11:49 DL 09/04/21 11:48 Wound Care Nurse 3 #1 L Plantar -Ulcer Cleansing Rinsed/ Irrigated with Saline -Foul Odor after Cleansing No -Other Dressing moist dakins gauze -Primary Dressing Covered/Secured with Dry Gauze & Roll Gauze, Secured with Tape Treatment Response Procedure Tolerated Well Pain Scale: 0-10 Numeric Is Patient Pain Free? Yes - Visit Discharge Discharge Condition Stable Ambulatory Status Ambulatory Transportation Private Auto Assessment/Plan Assessment/Plan (1) Cellulitis of left lower limb: CODE(S): L03.116 - Cellulitis of left lower limb (2) Foreign body in left foot: CODE(S): S90.852A - Superficial foreign body, left foot, initial encounter (3) Type 2 diabetes mellitus with diabetic polyneuropathy: CODE(S): E11.42 - Type 2 diabetes mellitus with diabetic polyneuropathy (4) Non-pressure chronic ulcer of other part of left foot with fat layer exposed: CODE(S): L97.522 - Non-pressure chronic ulcer of other part of left foot with fat layer exposed PLAN: I reviewed and discussed his case today. The ulcer is healed. To wear dry gauze dressing for the next week. If there is continued lack of drainage he can discontinue the dressings at that time. To continue offloading. To return to clinic in 2 weeks for healed ulcer check. If it remains healed a release to work will be recommended at that time. He has an exceptionally high hemoglobin A1c and has not been checking his glucose levels now that he is returned home. I advised him to follow-up promptly to work on diet, exercise, medication changes to optimize his diabetic management and to reduce risks. He is at risk for limb loss and continued infection with this condition. I answered all the patient's questions. The medical decision making level is moderate. There is noted moderate risk of morbidity after considering this treatment plan and diagnostic data. Considerations were given to prescription management, decisions regarding surgical options, or social determinants of health. The problems addressed require a moderate decision making level which includes one or more chronic illnesses (w/ exacerbation, progression, or side effects), two or more stable chronic illnesses, one undiagnosed new problem w/ uncertain prognosis, one acute illness with systemic symptoms, or one acute complicated injury.
== END 2021-09-24 23:59 ==
LOC: WC 10:30
PROVIDERS: PCP Internal Medicine; Visit Provider Podiatrist
DX: E11.621 Type 2 diabetes mellitus with foot ulcer (principal); L97.522 Non-pressure chronic ulcer of other part of left foot with fat layer exposed; L03.116 Cellulitis of left lower limb
CPT/HCPCS: 11042; 99213; G0463

== ENCOUNTER 2021-10-02 10:42 | Outpatient (RCR) | payer BC, SELFPAY ==
[2021-09-25 00:33] VITALS: BP 154/101; PULSE 88; RESP 18; TEMP 36.3; BMI 23.8
[2021-10-02 10:48] VITALS: BP 135/94; PULSE 97; RESP 16; TEMP 36.5; BMI 23.8
--- NOTE | 2021-10-02 11:35 | PN.PCM_ITS ---
History of Present Illness Date of Service: 10/02/21 Chief Complaint: left foot wound (prior foreign body and infection) History of Wound: This 35-year-old male sustained a metallic foreign body and presented to the hospital with infection which required surgical intervention on 07-27-21. He had foreign body excision, incision drainage and debridement of all nonviable heel pad tissue of the left lower extremity. Improved with IV antibiotics and has been discharged home on oral Bactrim and Augmentin. This has been completed. He denies fever, chill, nausea, vomiting, odor or redness. He denies drainage since his last visit. His glucose level has been usually under the 200 mg /dL range. He is ready to return to work Progress of Wound: remains healed Objective Data Objective Data Vital Signs: Vital Signs Temp Pulse Resp BP 97.7 F L 97 16 135/94 H 10/02/21 10:48 10/02/21 10:48 10/02/21 10:48 10/02/21 10:48 Oxygen Delivery Method Room Air Weight: 82.117 kg Body Mass Index (BMI) 23.8 Physical Exam Extremity Extremity Narrative: No calf tenderness Diminished pulses Muscle wasting noted Skin Skin Narrative: no purulence, no streaking, no odor. Erythema has resolved. Full epithelialization is noted with progressive skin remodeling Neuro Neuro Narrative: lack of normal epicritic sensation via light touch is consistent with neuropathy status Debridement Note Debridement Note Post-Debridement Measurements and Additional Note: Post-Debridement Measurements/Treatment - Nurse 1 - General Ulcer Assessment Start: 10/02/21 10:48 Freq: Status: Active Protocol: JOSE [email or web address] Activity Type Activity Date Activity User E-Sign Co-Sign Detail Recorded Client Recorded Date Recorded By Document 10/02/21 10:48 [facility] [id number] 10/02/21 10:53 [facility] 10/02/21 10:48 - Today's Visit Information Type of service Follow-up Visit (Physician/SECURITY SALES CONSULTANT ) Arrival Mode Ambulatory Transfer Assistance None Patient Identification Verified (Name & Yes ) Patient Requires Transmission-Based No Precautions Height and Weight Body Mass Index (BMI) 23.8 BMI Classification Normal Vital Signs Temperature (97.8 F-99.1 F) 97.7 F L Temperature Source Temporal Pulse Rate (60-100) 97 Pulse Location Monitor Respiratory Rate (12-18) 16 Respiratory rate source Observation Oxygen Delivery Method Room Air Blood Pressure (90/60-120/80) 135/94 H Blood Pressure Mean (mm Hg) 107 Source Monitor Position Sitting Blood Pressure Location Right Arm History Since Last Visit- (Skip if this is Patient's initial visit) Have you changed medications since your No last visit? Any new allergies or adverse reactions No Had a fall/change in ADL's that may No increase risk of falls Signs or symptoms of abuse and/or No neglect since last visit Have you been in the hospital since your No last visit? Left Footwear Regular Shoe Right Footwear Regular Shoe Pain Scale: 0-10 Numeric Is Patient Pain Free? Yes - Nurse 2 - General Ulcer CM Notes Start: 10/02/21 10:48 Freq: Status: Active Protocol: Activity Type Activity Date Activity User E-Sign Co-Sign Detail Recorded Client Recorded Date Recorded By Document 10/02/21 10:58 [id number] 10/02/21 10:58 10/02/21 10:58 Is Patient Pain Free? Yes - Nurse 3 - General Ulcer D/C NN Start: 10/02/21 10:48 Freq: Status: Active Protocol: Activity Type Activity Date Activity User E-Sign Co-Sign Detail Recorded Client Recorded Date Recorded By Document 10/02/21 10:59 [id number] 10/02/21 11:00 10/02/21 10:59 Is Patient Pain Free? Yes WC - Visit Discharge Discharge Condition Stable Ambulatory Status Ambulatory Transportation Private Auto Medication Reconcilliation completed & Yes provided to patient/care provider Clinical Summary of Care Provided Yes Assessment/Plan Assessment/Plan (1) Foreign body in left foot: CODE(S): S90.852A - Superficial foreign body, left foot, initial encounter (2) Type 2 diabetes mellitus with diabetic polyneuropathy: CODE(S): E11.42 - Type 2 diabetes mellitus with diabetic polyneuropathy (3) Non-pressure chronic ulcer of other part of left foot with fat layer exposed: CODE(S): L97.522 - Non-pressure chronic ulcer of other part of left foot with fat layer exposed PLAN: I reviewed and discussed his case today. The ulcer is healed. To wear dry gauze dressing for the next week. If there is continued lack of drainage he can discontinue the dressings at that time. To moisturize skin to maintain adjacent skin integrity and to prevent further ulcer formation. Check feet daily. To progress into work boots which she is already done without issues. To return to work as tolerated. He has an exceptionally high hemoglobin A1c and has not been checking his glucose levels now that he is returned home. His diabetes is recently better controlled he was encouraged to continue. I advised him to follow-up promptly to work on diet, exercise, medication changes to optimize his diabetic management and to reduce risks. He is at risk for limb loss and continued infection with this condition. I answered all the patient's questions. He is discharged from the wound healing center at this time. Note: Client[employer] speech recognition clinical nurse software was used to create portions of this document. Sound-alike and misspelled words, as well as other clinical nurse errors may be contained in the documentation. The medical decision making level is low. There is noted low risk of morbidity after considering this treatment plan and diagnostic data. The problems addressed require a low medical decision making level which includes two or more minor problems, a stable chronic illness, or an acute uncomplicated illness or injury.
== END 2021-10-02 11:45 | disposition home or self-care (01) ==
LOC: WC 10:42
PROVIDERS: PCP Internal Medicine; Visit Provider Podiatrist
DX: Z09 Encounter for follow-up examination after completed treatment for conditions other than malignant neoplasm (principal); E11.42 Type 2 diabetes mellitus with diabetic polyneuropathy
CPT/HCPCS: 99213; G0463

== ENCOUNTER 2024-11-01 15:37 | Emergency (ER) | payer BC, SELFPAY ==
[2024-11-01 15:38] VITALS: BP 160/105; PULSE 84; RESP 18; TEMP 36.7; O2SAT 100; BMI 29.0
[2024-11-01 15:43] VITALS: BP 160/105; PULSE 84; RESP 18; TEMP 36.7; O2SAT 100
--- NOTE | 2024-11-01 17:15 | ED.RN ---
Pt stated he was going to go to another ED. This RN informed pt he was second in line for a room. Pt decided to leave anyway.
== END 2024-11-01 17:00 | disposition left against medical advice (07) ==
LOC: ED 17:23
PROVIDERS: PCP Internal Medicine
DX: Z53.21 Procedure and treatment not carried out due to patient leaving prior to being seen by health care provider (principal)